=== PATIENT | male | born 1965 | race American Indian/Alaskan Native ===

== ENCOUNTER 2016-08-20 16:19 | Inpatient (IN) | payer MEDICAID ==
[2016-08-20 16:44] VITALS: BMI 21.4
[2016-08-20 17:19] LABS: BASO # 0.1 K/uL (0.0-0.2); BASO % 1.3 % (0.0-2.0); EOS % 0.6 % (0.0-4.0); HEMATOCRIT 38.5 % (35.0-51.0); LYMPH # 1.7 K/uL (1.0-4.3); MEAN CELL VOLUME 86.2 fL (80.0-94.0); MEAN CORPUSCULAR HEMOGLOBIN 27.5 pg (27.0-31.0); MEAN CORPUSCULAR HGB CONC 31.9 g/dL (33.0-37.0); MEAN PLATELET VOLUME 8.4 fL (7.2-11.7); MONO # 0.4 K/uL (0.0-0.8); RED CELL DISTRIBUTION WIDTH 13.4 % (11.5-14.5)
[2016-08-20 17:30] LABS: CHLORIDE 102 mmol/L (98-107); POTASSIUM 3.1 mmol/L (3.6-5.2); SODIUM 141 mmol/L (132-148)
[2016-08-20 17:32] LABS: AST/SGOT 79 U/L (17-59); BILIRUBIN,TOTAL 1.2 mg/dL (0.2-1.3); CARBON DIOXIDE 26 mmol/L (22-30); GFR AFRICAN-AMERICAN > 60
[2016-08-20 17:33] LABS: ALB/GLOB RATIO 1.4 (1.0-2.1); ALCOHOL SERUM 132 mg/dl (0-10); ALKALINE PHOSPHATASE 83 U/L (38-126); ALT/SGPT 59 U/L (21-72); BLOOD UREA NITROGEN 8 mg/dL (9-20); CALCIUM 8.6 mg/dl (8.6-10.4); GLUCOSE,RANDOM 107 mg/dL (75-110); TOTAL PROTEIN 7.5 g/dL (6.3-8.3)
[2016-08-20 17:59] LABS: RBC URINE < 1 /hpf (0-3); URINE BILIRUBIN NEGATIVE (NEGATIVE); URINE BLOOD NEGATIVE (NEGATIVE); URINE COLOR Yellow (YELLOW); URINE GLUCOSE (UA) NORMAL (Normal); URINE KETONE NEGATIVE (NEGATIVE); URINE LEUKOCYTE ESTERASE NEG Leu/uL (Negative); URINE PROTEIN NEGATIVE (NEGATIVE); URINE UROBILINOGEN NORMAL mg/dL (0.2-1.0); WBC URINE 1 /hpf (0-5)
--- NOTE | 2016-08-20 18:58 | C.PDOC ---
History Of Present Illness 51 y/o male presents to the ED for alcohol detox. Patient admits his last drink was a few hours WELDER SHIELDED METAL ARC. Patient has already been prescreened. He denies suicidal/ homicidal ideation or any other drug use at this time. Time Seen by Provider: 08/20/16 16:51 Chief Complaint (Nursing): Substance Abuse History Per: Patient History/Exam Limitations: intoxication Onset/Duration Of Symptoms: Hrs Current Symptoms Are (Timing): Still Present Suicide/Self Injury Attempted (Context): None Modifying Factor(s): Alcohol Associated Symptoms: denies: Suicidal Thoughts, Suicidal Plan Involuntary Hold By: None Recent travel outside of the [place]: No Additional History Per: Patient Past Medical History Reviewed: Historical Data, Nursing Documentation, Vital Signs Vital Signs: Last Vital Signs Temp 98.6 F 08/20/16 16:44 Pulse 94 H 08/20/16 16:44 Resp 18 08/20/16 16:44 BP 131/75 08/20/16 16:44 Pulse Ox 97 08/20/16 18:58 - Medical History PMH: Anemia, Anxiety, Arthritis (osteoarthritis), Bipolar Disorder, Depression, Diverticulitis, Gastritis, Post Traumatic Stress Disorder Denies: Diabetes, Hepatitis, HIV, HTN, Personality Disorder, Chronic Kidney Disease, Schizophrenia, Seizures, Sexually Transmitted Disease Surgical History: Cholecystectomy - [facility] Procedures ALCOHOL DETOXIFICATION (04/14/14) Family History: States: Unknown Family Hx - Social History Hx Tobacco Use: Yes Hx Alcohol Use: Yes Hx Substance Use: Yes (thc) - Immunization History Hx Tetanus Toxoid Vaccination: No Hx Influenza Vaccination: Yes Hx Pneumococcal Vaccination: Yes Review Of Systems Except As Marked, All Systems Reviewed And Found Negative. Psych: Positive for: Other (+alcohol detox ). Negative for: Suicidal ideation Physical Exam - Physical Exam Appears: No Acute Distress Skin: Normal Color, Warm, Dry Head: Atraumatic Eye(s): bilateral: Normal Inspection Oral Mucosa: Moist Neck: Supple Chest: Symmetrical, No Deformity, No Tenderness Cardiovascular: Rhythm Regular, No Murmur Respiratory: Normal Breath Sounds, No Rales, No Rhonchi, No Wheezing Gastrointestinal/Abdominal: Soft, No Tenderness, No Guarding, No Rebound Back: Normal Inspection, No Vertebral Tenderness, No Paraspinal Tenderness Extremity: Normal ROM, Capillary Refill (less than 2 seconds ) Neurological/Psych: Oriented x3, Normal Speech, Normal Cognition Gait: Steady ED Course And Treatment - Laboratory Results Result Diagrams: 08/20/16 17:14 08/20/16 17:14 O2 Sat by Pulse Oximetry: 97 (on RA) Pulse Ox Interpretation: Normal Progress Note: labs ordered and reviewed. Pt has been medically cleared for detox. Accepted by . 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 - Scribe Statement The provider has reviewed the documentation as recorded by the Scribe (Norah Lee) All medical record entries made by the Scribe were at my direction and personally dictated by me. I have reviewed the chart and agree that the record accurately reflects my personal performance of the history, physical exam, medical decision making, and the department course for this patient. I have also personally directed, reviewed, and agree with the discharge instructions and disposition. Decision To Admit - Pt Status Changed To: Hospital Disposition Of: Inpatient - Admit Certification Admit to Inpatient:: After my assessment, the patient will require hospitalization for at least two midnights. This is because of the severity of symptoms shown, intensity of services needed, and/or the medical risk in this patient being treated as an outpatient. - InPatient: Physician Admission Certification: I certify that this patient requires 2 or more midnights of care for the following reason:: Needs more than 2 days for detox - . Bed Request Type: Detox Admitting Physician: Nain Dupree Patient Diagnosis: Drug dependence
[2016-08-20] MEDS ORDERED: Potassium Chloride 20 mEq ER Tab PO STA (19:22)
[2016-08-20] MEDS ORDERED: Potassium Chloride 20 mEq ER Tab PO ONE (19:37)
[2016-08-21 08:36] LABS: CHLORIDE 100 mmol/L (98-107); SODIUM 140 mmol/L (132-148)
[2016-08-21 08:37] LABS: POTASSIUM 3.3 mmol/L (3.6-5.2)
[2016-08-21 08:39] LABS: GFR AFRICAN-AMERICAN > 60
[2016-08-21 08:40] LABS: BLOOD UREA NITROGEN 6 mg/dL (9-20); CARBON DIOXIDE 30 mmol/L (22-30); GLUCOSE,RANDOM 149 mg/dL (75-110)
[2016-08-21] MEDS: Multiple Vitamins Tab PO SCH (09:32)
[2016-08-21] MEDS: Pantoprazole 40 mg EC Tab PO SCH (10:26)
[2016-08-21] MEDS: Hemorrohoidal Ointment (2 oz) TOP SCH ×2 (10:50→22:15)
[2016-08-21] MEDS: Calcium-Vit D 250 mg-125 Units Tab UD PO SCH (10:50)
[2016-08-21] MEDS: Potassium Chloride 20 mEq ER Tab PO SCH (10:51)
--- NOTE | 2016-08-21 11:11 | PCM.PSYCH ---
Initial Psychiatric Evaluation - Initial Psychiatric Evaluation Type of Admission: Voluntary Legal Status: Capacity Chief Complaint (in patient's own words): "Alcohol" History of Present Illness and Precipitating Events: The patient is seen, chart reviewed and case discussed. This is a 51-year-old -Maldivian male, single with no child, lives alone in the room in [place]. He says he lost his mom recently whom he used to live with. He is on welfare and applying for Social Security disability. The patient admits to drinking more than a pint of alcohol every day, sometimes 2 pints. His first use was when he was 12 years old and in his life longest sobriety was about one year. He had more than 10 detoxes and four rehabs. Smokes cigarettes and also marijuana daily. He doesn't want patch. He denies all other drug use. He has some withdrawal symptoms from alcohol. Past psych history: He currently denies depression or anxiety but he is in treatment at [facility] for depression for about 10 years. He says he was hospitalized one time in 2007 after a "meltdown" No suicide attempts Family psych history: All 3 of his sisters had alcohol or drug use. Dependence also used alcohol, painkillers and "everything." Medical history: Osteoarthritis, diverticulitis, gastritis. Current Medications: Active Medications Generic Name Dose Route Start Last Admin Trade Name Denverq PRN Reason Stop Dose Admin Calcium/Vitamin D 1 tab 08/21/16 11:00 08/21/16 10:50 Oscal-D 250 Mg-125 Units Tab PO 1 tab DAILY MARI Administration Chlordiazepoxide 25 mg 08/21/16 00:00 08/21/16 06:27 Librium PO 08/24/16 23:59 25 mg Q6 MARI Administration Taper Chlordiazepoxide 25 mg 08/20/16 19:37 08/20/16 22:18 Librium PO 25 mg Q4H PRN Administration Alcohol Withdrawal Clonidine HCl 0.1 mg 08/21/16 06:02 08/21/16 06:27 Catapres PO 0.1 mg Q8H PRN Administration HTN Folic Acid 1 mg 08/21/16 10:00 08/21/16 09:32 Folic Acid PO 1 mg DAILY MARI Administration Gabapentin 300 mg 08/21/16 10:00 08/21/16 10:26 Neurontin PO 300 mg BID MARI Administration Multi-Ingredient Ointment 0 ea 08/21/16 10:00 08/21/16 10:50 Prep-Hem TOP 1 applic BID MARI Administration Multivitamins 1 tab 08/21/16 10:00 08/21/16 09:32 Hexavitamin PO 1 tab DAILY MARI Administration Pantoprazole Sodium 40 mg 08/21/16 10:00 08/21/16 10:26 Protonix Ec Tab PO 40 mg DAILY MARI Administration Potassium Chloride 40 meq 08/21/16 10:15 08/21/16 10:51 K-Dur 20 Meq Er Tab PO 40 meq DAILY MARI Administration Thiamine HCl 100 mg 08/21/16 10:00 08/21/16 09:32 Vitamin B1 Tab PO 100 mg DAILY MARI Administration Trazodone HCl 100 mg 08/20/16 22:00 08/20/16 22:19 Desyrel PO 100 mg HS MARI Administration Past Psychiatric History - Past Psychiatric History Previous Treatment History: Intensive Outpatient Pertinent Medical Hx (Current Medical&Sleep Prob, Allergies): Allergies Allergy/AdvReac Type Severity Reaction Status Date / Time No Known Allergies Allergy Verified 08/20/16 16:41 Gabapentin [Neurontin] 600 mg PO BID 07/02/15 traZODone [Desyrel] 100 mg PO DAILY 07/02/15 traZODone [Desyrel] 100 mg PO HS PRN #30 tab 07/27/15 LORazepam [Ativan] 1 mg PO DAILY 08/20/16 Omeprazole 40 mg PO DAILY 08/20/16 Review of Systems - Neurological Neurological: UNREMARKABLE - Psychiatric Psychiatric: Abnormal Sleep Pattern, Anxiety. absent: Hallucinations, Homicidal Ideation, Paranoia, Suicidal Ideation Mental Status Examination - Personal Presentation Personal Presentation: Looks older than stated age - Affect Affect: Broad - Motor Activity Motor Activity: Calm - Reliability in Providing Information Reliability in Providing Information: Fair - Speech Speech: Organized - Mood Mood: Anxious - Formal Thought Process Formal Thought Process: No Impairment - Cognitive Functions Orientation: Person, Place, Situation, Time Sensorium: Alert Attention/Concentration: Attentive Estimate of Intelligence: Average Judgement: Intact, as evidence by: Insight regarding need for hospitalization Memory: Recent intact, as evidence by: Ability to recall events of the day, Remote intact, as evidenced by: Abilit to recall sig. life events - Risk Risk: Withdrawal, Diminished functioning - Strength & Assets Inventory Strength & Assets Inventory: Cooperative - Limitations Limitations: Living alone DSM 5 DX - DSM 5 DSM 5 Diagnosis: Alcohol withdrawal Alcohol use d/o -severe Cannabis use d/o - severe Tobacco use d/o - severe Depressive d/o - unspecified - Recommended/Plan of Treatment Treatment Recommendations and Plan of Treatment: Alcohol: Librium detox gabapentin Support and psychoed NE and CBt Groups and activities Tobacco/Cannabis: NE used, continue daily CBt gabapentin for cannabis 33 min Projected ELOS: 5 days Prognosis: good with treatment - Smoking Cessation Smoking Cessation Initiated: Yes
[2016-08-21 14:33] VITALS: RESP 18
[2016-08-22] MEDS: Multiple Vitamins Tab PO SCH (10:06)
[2016-08-22] MEDS: Hemorrohoidal Ointment (2 oz) TOP SCH ×2 (10:07→18:05)
[2016-08-22] MEDS: Potassium Chloride 20 mEq ER Tab PO SCH (10:07)
[2016-08-22] MEDS: Pantoprazole 40 mg EC Tab PO SCH (10:07)
[2016-08-22] MEDS: Calcium-Vit D 250 mg-125 Units Tab UD PO SCH (10:08)
--- NOTE | 2016-08-22 12:05 | PCM.PYCHPN ---
Psychiatric Progress Note - Psychiatric Progress Note Patient seen today, length of contact: 16 min Patient Chief Complaint: "OK" Problems Identified/Issues Discussed: The pt is seen, chart reviewed, case discussed with staff. The pt is compliant with medications and reports no side-effects. Symptoms are improving but needs more time to stabilize. After care discussed, support and psychoeducation given. Medication Change: Yes (detox changes daily) Medical Record Reviewed: Yes Mental Status Examination - Cognitive Function Orientation: Person, Place, Situation, Time Memory: Intact Attention: WNL Concentration: WNL Association: WNL Fund of Knowledge: WNL - Mood Mood: Anxious - Affect Affect: Broad - Speech Speech: Appropriate - Formal Thought Process Formal Thought Process: No Impairment - Suicidal Ideation Suicidal Ideation: No - Homicidal Ideation Homicidal Ideation: No Goal/Treatment Plan - Goal/Treatment Plan Need for Continued Stay: Discharge may exacerbated symptoms, Severe functional impairment Progress Toward Problem(s) and Goals/Treatment Plan: Alcohol: Librium detox gabapentin Support and psychoed [place] and CBt Groups and activities Tobacco/Cannabis: IL used, continue daily CBt gabapentin for cannabis
[2016-08-22 14:20] LABS: CHLORIDE 98 mmol/L (98-107); SODIUM 140 mmol/L (132-148)
[2016-08-22 14:23] LABS: ALB/GLOB RATIO 1.8 (1.0-2.1); ALKALINE PHOSPHATASE 77 U/L (38-126); ALT/SGPT 45 U/L (21-72); AST/SGOT 41 U/L (17-59); BILIRUBIN,TOTAL 0.5 mg/dL (0.2-1.3); BLOOD UREA NITROGEN 7 mg/dL (9-20); CARBON DIOXIDE 30 mmol/L (22-30); GFR AFRICAN-AMERICAN > 60; GLUCOSE,RANDOM 99 mg/dL (75-110); TOTAL PROTEIN 7.2 g/dL (6.3-8.3)
[2016-08-22 14:24] LABS: CALCIUM 8.7 mg/dl (8.6-10.4)
[2016-08-23] MEDS: Calcium-Vit D 250 mg-125 Units Tab UD PO SCH (09:47)
[2016-08-23] MEDS: Multiple Vitamins Tab PO SCH (09:47)
[2016-08-23] MEDS: Pantoprazole 40 mg EC Tab PO SCH (09:47)
[2016-08-23] MEDS: Hemorrohoidal Ointment (2 oz) TOP SCH ×2 (09:47→19:04)
--- NOTE | 2016-08-23 13:15 | PCM.PYCHPN ---
Psychiatric Progress Note - Psychiatric Progress Note Patient seen today, length of contact: 17 min Patient Chief Complaint: "I want to leave tomorrow" Problems Identified/Issues Discussed: The pt is seen, chart reviewed and case discussed. The pt is improving with medications and no breakthrough sxs reported or noted. No SEs from meds Support and psychoed given MD and CBt used After care discussed Medication Change: Yes (detox changes daily) Medical Record Reviewed: Yes Mental Status Examination - Cognitive Function Orientation: Person, Place, Situation, Time Memory: Intact Attention: WNL Concentration: WNL Association: WNL Fund of Knowledge: WNL - Mood Mood: Anxious - Affect Affect: Broad - Speech Speech: Appropriate - Formal Thought Process Formal Thought Process: No Impairment - Suicidal Ideation Suicidal Ideation: No - Homicidal Ideation Homicidal Ideation: No Goal/Treatment Plan - Goal/Treatment Plan Need for Continued Stay: Discharge may exacerbated symptoms, Severe functional impairment Progress Toward Problem(s) and Goals/Treatment Plan: Alcohol: Librium detox gabapentin Support and psychoed MD and CBt Groups and activities Tobacco/Cannabis: MD used, continue daily CBt gabapentin for cannabis Estimated Date of D/C: 08/24/16
[2016-08-23 19:15] VITALS: PULSE 83; O2SAT 99
--- NOTE | 2016-08-24 08:19 | PCM.PYCHDC ---
Mental Status Examination - Mental Status Examination Orientation: Person, Place, Situation, Time Memory: Intact Mood: Neutral Affect: Constricted Speech: Soft Attention: WNL Concentration: WNL Association: WNL Fund of Knowledge: WNL Formal Thought Process: No Impairment Description of patient's judgement and insight: good, fair Psychotic Thoughts and Behaviors: denies any AVH Suicidal Ideation: No Current Homicidal Ideation?: No Discharge Summary - Discharge Note Reason for Hospitalization: The patient is seen, chart reviewed and case discussed. This is a 51-year-old -Serbian male, single with no child, lives alone in the room in [place]. He says he lost his mom recently whom he used to live with. He is on welfare and applying for Social Security disability. The patient admits to drinking more than a pint of alcohol every day, sometimes 2 pints. His first use was when he was 12 years old and in his life longest sobriety was about one year. He had more than 10 detoxes and four rehabs. Smokes cigarettes and also marijuana daily. He doesn't want patch. He denies all other drug use. He has some withdrawal symptoms from alcohol. Past psych history: He currently denies depression or anxiety but he is in treatment at [facility] for depression for about 10 years. He says he was hospitalized one time in 2007 after a "meltdown" No suicide attempts Consultations:: List each consultation separately and include: 1. Reason for request. 2. Findings. 3. Follow-up Summary of Hospital Course include:: 1. Description of specific treatment plan utilized for patients during their course of treatmen. 2. Summarize the time- course for resolution of acute symptoms and/or regressed behaviors. 3. Describe issues identified and worked on during hospitalization. 4. Describe medication utilized. 5. Describe medical problems identified and treated. 6. Reassessment of suicide risk Summary of Hospital Course: During the course of his stay, patient (pt) started progressively improving and he no longer remained anxious and irritable. He tolerated the withdrawal protocol very well. He didnt have any shakes, sweating, tremors or cramps or any other withdrawal symptoms upon discharge. He started attending groups and meetings and started socializing. He denied any feelings of hopelessness, helplessness, and worthlessness, denied any problem with the sleep or appetite, denied suicidal ideation or homicidal ideation. Pt denied any auditory or visual hallucinations. Patient remained calm and cooperative and remained compliant with the medications. Patient tolerated the detox medications very well and denied any side effects. - Final Diagnosis (DSM 5) Condition upon Discharge: STABLE DSM 5: Alcohol withdrawal Alcohol use d/o -severe Cannabis use d/o - severe Tobacco use d/o - severe Depressive d/o - unspecified Disposition: HOME/ ROUTINE Follow-up Treatment Plan: Education: Pt was educated and counseled about the risks and benefits of taking and not taking medications. Pt was educated and counseled about the risks of drinking and abusing drugs. Pt was educated and counseled to go to the ER or call 911 if pt develop suicidal ideation or homicidal ideation, worsening of symptoms or severe side effects of the meds. Prescriptions/Medication Reconciliation: Calcium Carbonate/Vitamin D [Oscal-D 250 mg-125 Units Tab] 1 tab PO DAILY #30 tab Gabapentin [Neurontin] 300 mg PO BID #60 cap traZODone [Desyrel] 100 mg PO HS #30 tab - Smoking Cessation Smoking Cessation Medication prescribed: No - Antipsychotic Medications Pt discharged on 2 or more routine antipsychotic medications: No
[2016-08-24 09:13] VITALS: BP 149/83; TEMP 97.8
[2016-08-24] MEDS: Calcium-Vit D 250 mg-125 Units Tab UD PO SCH (09:13)
[2016-08-24] MEDS: Multiple Vitamins Tab PO SCH (09:13)
[2016-08-24] MEDS: Pantoprazole 40 mg EC Tab PO SCH (09:13)
[2016-08-24] MEDS: Hemorrohoidal Ointment (2 oz) TOP SCH (09:14)
== END 2016-08-24 09:40 | disposition home or self-care (01) | DRG 751 ==
LOC: C.ER 16:19 → C.7D 19:23
PROC: HZ2ZZZZ Detoxification Services for Substance Abuse Treatment (ICD-10-PCS; principal; 2016-08-20)
PROC: HZ46ZZZ Group Counseling for Substance Abuse Treatment, Psychoeducation (ICD-10-PCS; 2016-08-20)
PROC: HZ59ZZZ Individual Psychotherapy for Substance Abuse Treatment, Supportive (ICD-10-PCS; 2016-08-20)
PROC: GZ3ZZZZ Medication Management (ICD-10-PCS; 2016-08-20)
DX: F10.230 Alcohol dependence with withdrawal, uncomplicated (principal); F14.10 Cocaine abuse, uncomplicated; F12.10 Cannabis abuse, uncomplicated; F31.9 Bipolar disorder, unspecified; F17.210 Nicotine dependence, cigarettes, uncomplicated; F43.10 Post-traumatic stress disorder, unspecified

== ENCOUNTER 2016-09-04 16:39 | Observation (INO) | payer MEDICAID ==
[2016-09-04 16:40] VITALS: BMI 21.4
--- NOTE | 2016-09-04 17:27 | C.PDOC ---
History Of Present Illness 51 yr old male brought in via BLS, presents to the ER intoxicated and stating feeling depressed. 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 States his mother and he is having difficulty staying sober. Denies chest pain, SOB, nausea, vomiting, weakness or numbness. Time Seen by Provider: 09/04/16 17:06 Chief Complaint (Nursing): Substance Abuse History Per: Patient History/Exam Limitations: no limitations Onset/Duration Of Symptoms: Persistent Current Symptoms Are (Timing): Still Present Modifying Factor(s): Alcohol Past Medical History Reviewed: Historical Data, Nursing Documentation, Vital Signs Vital Signs: Last Vital Signs Temp 97.7 F 09/04/16 19:29 Pulse 80 09/04/16 19:29 Resp 18 09/04/16 19:29 BP 136/80 09/04/16 19:29 Pulse Ox 96 09/04/16 20:29 - Medical History PMH: Anemia, Anxiety, Arthritis, Bipolar Disorder, Depression, Diverticulitis, Gastritis, Post Traumatic Stress Disorder Surgical History: Cholecystectomy - [facility] Procedures ALCOHOL DETOXIFICATION (04/14/14) DETOXIFICATION SERVICES FOR SUBSTANCE ABUSE TREATMENT (08/20/16) 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 Cardiovascular: Negative for: Chest Pain Respiratory: Negative for: Shortness of Breath Gastrointestinal: Negative for: Nausea, Vomiting Neurological: Negative for: Weakness, Numbness Psych: Positive for: Depression, Other ((+) Intoxication ) Physical Exam - Physical Exam Appears: Non-toxic, No Acute Distress Skin: Warm, Dry, No Rash Head: Atraumatic, Normacephalic Oral Mucosa: Moist Chest: Symmetrical, No Tenderness Cardiovascular: Rhythm Regular, No Friction Rub Respiratory: Normal Breath Sounds, No Rales, No Rhonchi, No Wheezing Extremity: Normal ROM, No Swelling Neurological/Psych: Oriented x3, Normal Speech, Normal Motor ED Course And Treatment O2 Sat by Pulse Oximetry: 96 ED OBSERVATION Discharge: Yes Date of observation admission: 09/04/16 Time of observation admission: 17:25 - Observation admission statement Patient is being placed in observation because:: alcohol intoxication - Goals of Observation Goals of observation are:: sobriety - Progress Note Progress Note: 09/04/16 20:28 Patient resting quietly. Easily arousable. No evidence of withdrawal. 09/04/16 21:32 Patient now awake and alert. He has tolerated a sandwich and is requesting discharge stating that he has a 10:00pm curfew at the [facility]. Disposition - Disposition Disposition: HOME/ ROUTINE Disposition Time: 21:32 Condition: IMPROVED - Clinical Impression Clinical Impression: Alcohol abuse - Scribe Statement The provider has reviewed the documentation as recorded by the Harpreetibtrevin Chapman Provider Attestation: All medical record entries made by the Harpreetibtrevin were at my direction and personally dictated by me. I have reviewed the chart and agree that the record accurately reflects my personal performance of the history, physical exam, medical decision making, and the department course for this patient. I have also personally directed, reviewed, and agree with the discharge instructions and disposition.
[2016-09-04 21:42] VITALS: BP 161/89; PULSE 92; RESP 20; TEMP 98.2; O2SAT 97
== END 2016-09-04 21:33 | disposition home or self-care (01) ==
LOC: C.ER 16:39 → C.9OBSV 17:27
PROVIDERS: ADMIT Emergency Medicine; ATTEND Emergency Medicine
DX: F10.120 Alcohol abuse with intoxication, uncomplicated (principal); Y90.9 Presence of alcohol in blood, level not specified

== ENCOUNTER 2016-09-05 07:04 | Inpatient (IN) | payer MEDICAID ==
[2016-09-05 07:05] VITALS: BMI 21.4
[2016-09-05 08:13] LABS: BASO % 0.3 % (0.0-2.0); EOS # 0.1 K/uL (0.0-0.7); EOS % 1.6 % (0.0-4.0); HEMATOCRIT 37.4 % (35.0-51.0); LYMPH # 1.7 K/uL (1.0-4.3); LYMPH % 31.1 % (20.0-40.0); MEAN CELL VOLUME 84.4 fL (80.0-94.0); MEAN CORPUSCULAR HEMOGLOBIN 27.2 pg (27.0-31.0); MEAN CORPUSCULAR HGB CONC 32.3 g/dL (33.0-37.0); MEAN PLATELET VOLUME 8.1 fL (7.2-11.7); MONO # 0.3 K/uL (0.0-0.8); MONO % 5.5 % (0.0-10.0); NRBC % 0.1 % (0.0-2.0); RED CELL DISTRIBUTION WIDTH 13.1 % (11.5-14.5); WHITE BLOOD COUNT 5.5 K/uL (4.8-10.8)
[2016-09-05 08:14] LABS: RBC URINE 1 /hpf (0-3); URINE BILIRUBIN NEGATIVE (NEGATIVE); URINE BLOOD NEGATIVE (NEGATIVE); URINE COLOR Yellow (YELLOW); URINE GLUCOSE (UA) NORMAL (Normal); URINE KETONE TRACE mg/dL (NEGATIVE); URINE LEUKOCYTE ESTERASE NEG Leu/uL (Negative); URINE PROTEIN 1+ mg/dL (NEGATIVE); WBC URINE 3 /hpf (0-5)
[2016-09-05 08:19] LABS: CHLORIDE 102 mmol/L (98-107); POTASSIUM 3.1 mmol/L (3.6-5.2); SODIUM 140 mmol/L (132-148)
[2016-09-05 08:21] LABS: ALB/GLOB RATIO 1.3 (1.0-2.1); AST/SGOT 67 U/L (17-59); BILIRUBIN,TOTAL 2.4 mg/dL (0.2-1.3); CARBON DIOXIDE 23 mmol/L (22-30); GFR AFRICAN-AMERICAN > 60; TOTAL PROTEIN 6.9 g/dL (6.3-8.3)
[2016-09-05 08:22] LABS: ALCOHOL SERUM 64 mg/dl (0-10); ALKALINE PHOSPHATASE 74 U/L (38-126); ALT/SGPT 52 U/L (21-72); BLOOD UREA NITROGEN 9 mg/dL (9-20); CALCIUM 7.3 mg/dl (8.6-10.4); GLUCOSE,RANDOM 96 mg/dL (75-110)
--- NOTE | 2016-09-05 08:31 | C.PDOC ---
History Of Present Illness Patient is a 51-year-old male, PMHx includes Cholecystectomy, Diverticulitis, Osteoarthritis, Hypertension, Bipolar Disorder, Anxiety, EtOH Abuse, PTSD and Depression, presents to the emergency department with complaints of increasing depression over the past several days, and suicidal ideation with plan to overdose. Patient reports that his mother recently . Denies nausea/ vomiting, chest pain, shortness of breath, headache, fevers, shortness of breath , or any other associated symptoms. No other complaints at this time. Time Seen by Provider: 09/05/16 07:46 Chief Complaint (Nursing): Psychiatric Evaluation History Per: Patient History/Exam Limitations: no limitations Onset/Duration Of Symptoms: Days Current Symptoms Are (Timing): Still Present Modifying Factor(s): Alcohol, Marijuana Severity: Moderate Associated Symptoms: Suicidal Thoughts Past Medical History Reviewed: Historical Data, Nursing Documentation, Vital Signs Vital Signs: Last Vital Signs Temp 98.4 F 09/05/16 13:27 Pulse 103 H 09/05/16 13:27 Resp 19 09/05/16 13:27 BP 162/96 H 09/05/16 13:27 Pulse Ox 99 09/05/16 11:42 - Medical History PMH: Anemia, Anxiety, Arthritis, Bipolar Disorder, Depression, Diverticulitis, Gastritis, Post Traumatic Stress Disorder Surgical History: Cholecystectomy - [facility] Procedures ALCOHOL DETOXIFICATION (04/14/14) DETOXIFICATION SERVICES FOR SUBSTANCE ABUSE TREATMENT (08/20/16) 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 Cardiovascular: Negative for: Chest Pain Respiratory: Negative for: Shortness of Breath Gastrointestinal: Negative for: Nausea, Vomiting Psych: Positive for: Depression, Suicidal ideation Physical Exam - Physical Exam Appears: Non-toxic, No Acute Distress, Other (EtOH on breath) Skin: Warm, Dry, No Rash Head: Atraumatic, Normacephalic Eye(s): bilateral: Normal Inspection, PERRL Ear(s): Bilateral: Normal Nose: Normal Oral Mucosa: Moist Tongue: Normal Appearing Lips: Normal Appearing Neck: Normal ROM Lymphatic: Deferred Cardiovascular: Rhythm Regular, No Murmur Respiratory: Normal Breath Sounds, No Accessory Muscle Use Gastrointestinal/Abdominal: Soft, No Tenderness Rectal: Deferred Back: Normal Inspection Extremity: Normal ROM Neurological/Psych: Oriented x3, Normal Speech, Other (No focal deficit.) ED Course And Treatment - Laboratory Results Result Diagrams: 09/05/16 08:06 09/05/16 08:06 O2 Sat by Pulse Oximetry: 96 Medical Decision Making Medical Decision Making: Impression: Depression with suicidal ideation. Plan: Will medically clear and admit to psychiatric unit. Prior Visits Notes and records from previous visits were reviewed. Patient seen in ED yesterday for SI and was requesting detox. After four hours of observation, patient ate a sandwich and requested to be discharged due [facility]few [facility]. Plan: * EtOH Serum, CMP, UDS, Salicylate, Acetominophen * CBC * Crisis Evaluation * 1:1 Observation * Urinalysis * Reassess and Disposition Progress: 11:00 AM - Pt is medically stable at this time to be admitted to psychiatry. Pt accepted to psych by Dr. Vuong. Disposition - Disposition Disposition: HOSPITALIZED Disposition Time: 10:56 Condition: FAIR - POA Present On Arrival: None - Clinical Impression Clinical Impression: Alcohol use disorder, severe, dependence, Major depression, Hypokalemia - Scribe Statement The provider has reviewed the documentation as recorded by the Scribe (Angelo Kendall) All medical record entries made by the Scribe were at my direction and personally dictated by me. I have reviewed the chart and agree that the record accurately reflects my personal performance of the history, physical exam, medical decision making, and the department course for this patient. I have also personally directed, reviewed, and agree with the discharge instructions and disposition. Decision To Admit - Pt Status Changed To: Hospital Disposition Of: Inpatient - Admit Certification Admit to Inpatient:: After my assessment, the patient will require hospitalization for at least two midnights. This is because of the severity of symptoms shown, intensity of services needed, and/or the medical risk in this patient being treated as an outpatient. - InPatient: Physician Admission Certification: I certify that this patient requires 2 or more midnights of care for the following reason:: Patient is suicidal - . Bed Request Type: Psychiatry Admitting Physician: Elidia Vuong Patient Diagnosis: Alcohol use disorder, severe, dependence, Major depression, Hypokalemia
--- NOTE | 2016-09-05 09:59 | RAD ---
PROCEDURE: CHEST RADIOGRAPH, 1 VIEW HISTORY: Medical clearance for Psych COMPARISON: None available. FINDINGS: LUNGS: Mild venous congestion. PLEURA: No pneumothorax or pleural fluid seen. CARDIOVASCULAR: Normal. OSSEOUS STRUCTURES: No significant abnormalities. VISUALIZED UPPER ABDOMEN: Normal. OTHER FINDINGS: None. IMPRESSION: Mild venous congestion.
[2016-09-05] MEDS ORDERED: Potassium Chloride 20 mEq/15 ml LIQ UD PO STA (10:55)
[2016-09-05] MEDS ORDERED: Potassium Chloride 20 mEq ER Tab PO ONE (11:10)
--- NOTE | 2016-09-05 12:23 | PCM.PSYCH ---
Initial Psychiatric Evaluation - Initial Psychiatric Evaluation Type of Admission: Voluntary Legal Status: Capacity Chief Complaint (in patient's own words): 'I was feeling depressed and suicidal' History of Present Illness and Precipitating Events: Pt is a 51 year old, AA male, who presented to [facility] ED for depression , suicidal ideation, and alcohol dependence. Pt reports that he's had "a rough year." Pt states that h his mother in April. Since then he is drinking increasing amount of liquor. Patient reports drinking a fifth of vodka on a daily basis. Yesterday he consumed almost 4 pints of vodka, became increasingly depressed and developed Suicidal ideation with a plan to overdose on medications, so he came to the hospital to get help. Pt admits to noncompliance with psychiatric medication. Pt states that he's been having suicidal thoughts for the past two weeks, but yesterday he had a plan of overdosing on medication. He reports depressed mood, feelings of hopelessness and helplessness, poor sleep and poor appetite. He denies any auditory or visual hallucinations and denies any manic or psychotic symptoms. He reports withdrawal symptoms including anxiety, headaches, shakes and sweating but denies any seizures. However he reports of having an episode of seizures in the past. He denies any other substance abuse. Past medical history History of diverticulitis, HTN Current Medications: Active Medications Generic Name Dose Route Start Last Admin Trade Name Freq PRN Reason Stop Dose Admin Chlordiazepoxide 25 mg 09/05/16 12:17 Librium PO Q4H PRN Alcohol Withdrawal Chlordiazepoxide 0 mg 09/05/16 12:19 Librium PO 09/11/16 12:18 Q6 MARI Taper Clonidine HCl 0.1 mg 09/05/16 12:17 Catapres PO Q4H PRN Symptoms of alcohol withdrawl Folic Acid 1 mg 09/05/16 12:30 Folic Acid PO DAILY MARI Multivitamins 1 tab 09/05/16 12:30 Hexavitamin PO DAILY MARI Thiamine HCl 100 mg 09/05/16 12:30 Vitamin B1 Tab PO DAILY MARI Past Psychiatric History - Past Psychiatric History Previous Treatment History: Inpatient Pertinent Medical Hx (Current Medical&Sleep Prob, Allergies): Allergies Allergy/AdvReac Type Severity Reaction Status Date / Time No Known Allergies Allergy Verified 09/05/16 07:08 LORazepam [Ativan] 1 mg PO DAILY PRN 08/20/16 traZODone [Desyrel] 100 mg PO HS #30 tab 08/23/16 Gabapentin [Neurontin] 300 mg PO TID 09/04/16 Review of Systems - Review of Systems All systems: reviewed and no additional remarkable complaints except - Psychiatric Psychiatric: Anxiety, Depression, Irritability, Paranoia, Suicidal Ideation Mental Status Examination - Personal Presentation Personal Presentation: Looks stated age - Affect Affect: Constricted, Depressed - Motor Activity Motor Activity: Calm - Reliability in Providing Information Reliability in Providing Information: Good - Speech Speech: Organized - Mood Mood: Depressed, Anxious - Formal Thought Process Formal Thought Process: Paranoia - Hallucinations/Delusions Delusions: Persecution - Obsessions/Compulsions Obsessions: No Compulsions: No - Cognitive Functions Orientation: Person, Place, Situation, Time Sensorium: Alert Attention/Concentration: Attentive Abstract Thinking: [place] Estimate of Intelligence: Below average Judgement: Imparied, as evidence by: Poor judgement, Imparied, as evidence by: Lack of insight into illness - Risk Risk: Suicidal, Withdrawal, Diminished functioning - Strength & Assets Inventory Strength & Assets Inventory: Cooperative - Limitations Limitations: Living alone DSM 5 DX - DSM 5 DSM 5 Diagnosis: Major depressive disorder recurrent severe with psychotic features Alcohol use disorder severe Alcohol withdrawal uncomplicated - Recommended/Plan of Treatment Treatment Recommendations and Plan of Treatment: Major depressive disorder recurrent severe with psychotic features CBT Psychoeducation Supportive therapy, group therapy, individual therapy Paxil 10 mg by mouth daily Neurontin 300 mg by mouth 3 times a day Trazodone 100 mg by mouth daily at bedtime Alcohol use disorder severe CBT Psychoeducation Supportive therapy, individual therapy Use GA for abstinence Alcohol withdrawal uncomplicated CBT Psychoeducation Supportive therapy, individual therapy Librium when necessary Start Librium taper Start folic acid/thiamine/multivitamin Diverticulitis monitor signs and symptoms HTN monitor signs and symptoms - Smoking Cessation Smoking Cessation Initiated: No
[2016-09-05] MEDS: Multiple Vitamins Tab PO SCH (12:48)
[2016-09-05] MEDS: Pantoprazole 40 mg EC Tab PO SCH (17:46)
[2016-09-06] MEDS: Pantoprazole 40 mg EC Tab PO SCH (09:53)
[2016-09-06] MEDS: Multiple Vitamins Tab PO SCH (09:53)
[2016-09-06] MEDS: Calcium-Vit D 250 mg-125 Units Tab UD PO SCH (10:52)
[2016-09-06 12:17] LABS: CHLORIDE 100 mmol/L (98-107); SODIUM 140 mmol/L (132-148)
[2016-09-06 12:18] LABS: POTASSIUM 3.7 mmol/L (3.6-5.2)
[2016-09-06 12:19] LABS: CARBON DIOXIDE 29 mmol/L (22-30); CHOLESTEROL 152 mg/dL (0-199); GFR AFRICAN-AMERICAN > 60
[2016-09-06 12:20] LABS: ALB/GLOB RATIO 1.2 (1.0-2.1); ALKALINE PHOSPHATASE 76 U/L (38-126); ALT/SGPT 40 U/L (21-72); AST/SGOT 58 U/L (17-59); BILIRUBIN,TOTAL 1.1 mg/dL (0.2-1.3); BLOOD UREA NITROGEN 6 mg/dL (9-20); CALCIUM 9.2 mg/dl (8.6-10.4); GLUCOSE,RANDOM 94 mg/dL (75-110); MAGNESIUM 1.6 mg/dL (1.6-2.3); TOTAL PROTEIN 7.6 g/dL (6.3-8.3)
--- NOTE | 2016-09-06 18:49 | PCM.PYCHPN ---
Psychiatric Progress Note - Psychiatric Progress Note Patient seen today, length of contact: 18 min Patient Chief Complaint: "I am very anxious" Problems Identified/Issues Discussed: The pt is seen alone and with the team, chart reviewed, case discussed with staff. He is known to the justowriter operator. Support given, CBT and MO used briefly No new symptoms reported, but needs some more time as he is still anxious and depressed He is also too talkative and made himself believe that he will go to a rehab - which he has never been into. Now that he became homeless due to mos passing, he may. He made an appt with [facility] on Friday but justowriter operator advised that he can get [facility] funding via addiction hotline too. No SEs from medications, risks discussed. After care discussed - wants rehab Medication Change: Yes Medical Record Reviewed: Yes Mental Status Examination - Cognitive Function Orientation: Person, Place, Situation, Time Memory: Intact Attention: Poor Concentration: Poor Association: Loose Fund of Knowledge: WNL - Mood Mood: Depressed, Anxious - Affect Affect: Constricted, Depressed - Speech Speech: Pressured - Formal Thought Process Formal Thought Process: Paranoia - Suicidal Ideation Suicidal Ideation: No - Homicidal Ideation Homicidal Ideation: No Goal/Treatment Plan - Goal/Treatment Plan Need for Continued Stay: Discharge may exacerbated symptoms, Severe functional impairment Progress Toward Problem(s) and Goals/Treatment Plan: Continue meds After care help Support and psychoed MO and CBT Attend groups and activities Estimated Date of D/C: 09/11/16
[2016-09-07] MEDS: Pantoprazole 40 mg EC Tab PO SCH (09:54)
[2016-09-07] MEDS: Multiple Vitamins Tab PO SCH (09:55)
[2016-09-07] MEDS: Calcium-Vit D 250 mg-125 Units Tab UD PO SCH (09:55)
[2016-09-07] MEDS ORDERED: Hemorrohoidal Ointment (2 oz) TOP PRN (17:28)
[2016-09-08 07:00] VITALS: O2SAT 98
[2016-09-08] MEDS ORDERED: Pneumococcal 23-Valent Vaccine IM ONE (10:00)
[2016-09-08] MEDS: Multiple Vitamins Tab PO SCH (10:58)
[2016-09-08] MEDS: Pantoprazole 40 mg EC Tab PO SCH (11:00)
[2016-09-08] MEDS: Calcium-Vit D 250 mg-125 Units Tab UD PO SCH (12:01)
--- NOTE | 2016-09-09 00:55 | PCM.PYCHPN ---
Psychiatric Progress Note - Psychiatric Progress Note Patient seen today, length of contact: 15 min Patient Chief Complaint: iCAN I H\GET PREPARATION H Problems Identified/Issues Discussed: PAWS SYMPTOM MANAGEMENT TRIGGERS I WANT TO BE ON CELEXA NOT PAXIL Medical Problems: HEMORROIDS Diagnostic Results: REVIEWED DSM 5 Symptoms Update: ANERGY Medication Change: Yes (STOP PAXIL START CELEXA) Medical Record Reviewed: Yes Mental Status Examination - Cognitive Function Orientation: Person, Situation, Time Memory: Intact Attention: Poor Concentration: WNL Association: WNL Fund of Knowledge: WNL - Mood Mood: Depressed, Anxious - Affect Affect: Constricted, Depressed - Speech Speech: Pressured - Formal Thought Process Formal Thought Process: No Impairment - Suicidal Ideation Suicidal Ideation: No - Homicidal Ideation Homicidal Ideation: No Goal/Treatment Plan - Goal/Treatment Plan Need for Continued Stay: Discharge may exacerbated symptoms, Severe functional impairment Progress Toward Problem(s) and Goals/Treatment Plan: MDD WITH PSYCHOSIS CELEXA ALCOHOL WITHDRAWAL CBT MT LIBRIUM TAPER ALCOHOLUSE DISORDER SUPPORT PSYCHOTHERAPY Estimated Date of D/C: 09/11/16 - Smoking Cessation Smoking Cessation Initiated: No
--- NOTE | 2016-09-09 02:21 | PCM.PYCHPN ---
Psychiatric Progress Note - Psychiatric Progress Note Patient seen today, length of contact: 15 min Patient Chief Complaint: iCAN I GET PREPARATION H Problems Identified/Issues Discussed: SYMPTOM MANAGEMENT PAWS Medical Problems: NOTHING ACUTE Diagnostic Results: REVIEWED DSM 5 Symptoms Update: ANXIETY ANHEDONIA Medication Change: No Medical Record Reviewed: Yes Mental Status Examination - Cognitive Function Orientation: Person, Place, Situation, Time Memory: Intact Attention: WNL Concentration: WNL Association: WNL Fund of Knowledge: WNL - Mood Mood: Depressed, Anxious - Affect Affect: Constricted, Depressed - Speech Speech: Appropriate, Pressured - Formal Thought Process Formal Thought Process: No Impairment - Suicidal Ideation Suicidal Ideation: No - Homicidal Ideation Homicidal Ideation: No Goal/Treatment Plan - Goal/Treatment Plan Need for Continued Stay: Remain at risks for inpatient hospitalization, Discharge may exacerbated symptoms, Severe functional impairment Progress Toward Problem(s) and Goals/Treatment Plan: MDD WITH PSYCHOSIS SUPPORTIVE PSYCHOTHERAPY SEROQUEL ALCOHOL WITHDRAWAL CBT AL LIBRIUM TAPER SUPPORTIVE PSYCHOTHERAPY ALCOHOLUSE DISORDER SUPPORT PSYCHOTHERAPY Estimated Date of D/C: 09/11/16 - Smoking Cessation Smoking Cessation Initiated: No
--- NOTE | 2016-09-09 09:37 | PCM.PYCHDC ---
Mental Status Examination - Mental Status Examination Orientation: Person, Place, Situation, Time Memory: Intact Mood: Anxious Affect: Broad Speech: Pressured Attention: WNL Concentration: Poor Association: WNL Fund of Knowledge: WNL Formal Thought Process: No Impairment Suicidal Ideation: No Current Homicidal Ideation?: No Discharge Summary - Discharge Note Reason for Hospitalization: Depression, SI Consultations:: List each consultation separately and include: 1. Reason for request. 2. Findings. 3. Follow-up Summary of Hospital Course include:: 1. Description of specific treatment plan utilized for patients during their course of treatmen. 2. Summarize the time- course for resolution of acute symptoms and/or regressed behaviors. 3. Describe issues identified and worked on during hospitalization. 4. Describe medication utilized. 5. Describe medical problems identified and treated. 6. Reassessment of suicide risk Summary of Hospital Course: The pt was admitted and started on treatment with psychotherapy, support, psychoeducation and medications. MT and CBT used. The pt attended groups and activities, as well as milieu therapy. All the risks and benefits of medications are discussed and the patient understood and agreed. After care discussed with the patient. He was as before evasive and guarded. He was fixated on attending a meeting with [facility] rather than calling [place] Addiction Hotline. He claimed his "counselor" at [facility] recommended this and he wouldn't listen anything otherwise. He plans to go to an inpatient rehab but senior technical writer and staff suspect he does not. He recently found an apartment and likely wouldn't risk it. - Final Diagnosis (DSM 5) Condition upon Discharge: IMPROVED DSM 5: Major depressive disorder recurrent severe with psychotic features Alcohol use disorder severe Alcohol withdrawal uncomplicated Disposition: HOME/ ROUTINE Follow-up Treatment Plan: Continue below medications after discharge. Follow after care plan as discussed. He will start with [facility] appointment with a plan to go to an inpatient rehab Use relapse prevention skills Return to ER or call 911 if suicidal, homicidal or symptoms relapse. Stay away from stress, alcohol and drugs. See primary doctor once a year. Prescriptions/Medication Reconciliation: amLODIPine [Norvasc] 5 mg PO DAILY #30 tab Calcium Carbonate/Vitamin D [Oscal-D 250 mg-125 Units Tab] 1 tab PO DAILY #30 tab Citalopram [celEXA] 20 mg PO DAILY #30 tab Gabapentin [Neurontin] 300 mg PO TID #90 cap Pantoprazole [Protonix EC Tab] 40 mg PO DAILY #30 ect traZODone [Desyrel] 100 mg PO HS #30 tab - Smoking Cessation Smoking Cessation Medication prescribed: No - Antipsychotic Medications Pt discharged on 2 or more routine antipsychotic medications: No
[2016-09-09] MEDS: Multiple Vitamins Tab PO SCH (09:44)
[2016-09-09] MEDS: Pantoprazole 40 mg EC Tab PO SCH (09:44)
[2016-09-09] MEDS: Calcium-Vit D 250 mg-125 Units Tab UD PO SCH (09:45)
[2016-09-09 10:16] VITALS: BP 142/87; PULSE 75; RESP 18; TEMP 97.7
== END 2016-09-09 10:52 | disposition home or self-care (01) | DRG 750 ==
LOC: C.ER 07:04 → C.9E 10:56 → C.5E 11:44
PROVIDERS: ADMIT Psychiatry & Neurology Psychiatry; ATTEND Psychiatry & Neurology Psychiatry
PROC: HZ2ZZZZ Detoxification Services for Substance Abuse Treatment (ICD-10-PCS; principal; 2016-09-05)
PROC: GZHZZZZ Group Psychotherapy (ICD-10-PCS; 2016-09-05)
PROC: HZ52ZZZ Individual Psychotherapy for Substance Abuse Treatment, Cognitive-Behavioral (ICD-10-PCS; 2016-09-05)
PROC: GZ58ZZZ Individual Psychotherapy, Cognitive-Behavioral (ICD-10-PCS; 2016-09-05)
PROC: GZ56ZZZ Individual Psychotherapy, Supportive (ICD-10-PCS; 2016-09-05)
PROC: HZ59ZZZ Individual Psychotherapy for Substance Abuse Treatment, Supportive (ICD-10-PCS; 2016-09-05)
PROC: HZ56ZZZ Individual Psychotherapy for Substance Abuse Treatment, Psychoeducation (ICD-10-PCS; 2016-09-05)
DX: F10.239 Alcohol dependence with withdrawal, unspecified (principal); F33.3 Major depressive disorder, recurrent, severe with psychotic symptoms; E87.6 Hypokalemia; K57.92 Diverticulitis of intestine, part unspecified, without perforation or abscess without bleeding; I10 Essential (primary) hypertension

== ENCOUNTER 2016-11-10 14:46 | Inpatient (IN) | payer MEDICAID ==
[2016-11-10 14:46] VITALS: BMI 21.4
--- NOTE | 2016-11-10 15:48 | C.PDOC ---
History Of Present Illness 51 y/o male presents to ED for evaluation of suicidal ideation for the past week. States he is hearing voices to hurt himself. Otherwise, denies any homicidal ideation, or any physical complaints at this time. Time Seen by Provider: 11/10/16 15:00 Chief Complaint (Nursing): Psychiatric Evaluation History Per: Patient History/Exam Limitations: no limitations Onset/Duration Of Symptoms: Days Current Symptoms Are (Timing): Still Present Modifying Factor(s): None Severity: None Pain Scale Rating Of: 0 Associated Symptoms: Suicidal Thoughts Involuntary Hold By: None Recent travel outside of the [place]: No Additional History Per: Patient Past Medical History Reviewed: Historical Data, Nursing Documentation, Vital Signs Vital Signs: Last Vital Signs Temp 98.7 F 11/10/16 14:49 Pulse 114 H 11/10/16 14:49 Resp 20 11/10/16 14:49 BP 144/89 11/10/16 14:49 Pulse Ox 94 L 11/10/16 16:48 - Medical History PMH: Anemia, Anxiety, Arthritis, Bipolar Disorder, Depression, Diverticulitis, Gastritis, Post Traumatic Stress Disorder Surgical History: Cholecystectomy - [facility] ALCOHOL DETOXIFICATION (04/14/14) DETOXIFICATION SERVICES FOR SUBSTANCE ABUSE TREATMENT (09/05/16) GROUP ACCORDION REPAIRER FOR SUBSTANCE ABUSE TREATMENT, PSYCHOEDUCATION (08/20/16) GROUP PSYCHOTHERAPY (09/05/16) INDIV PSYCHOTHERAPY FOR SUBSTANCE ABUSE TREATMENT, SUPPORT (09/05/16) INDIV PSYCHOTHERAPY FOR SUBSTANCE ABUSE, COGNITIV BEHAVIORAL (09/05/16) INDIV PSYCHOTHERAPY FOR SUBSTANCE ABUSE, PSYCHOEDUCATION (09/05/16) INDIVIDUAL PSYCHOTHERAPY, COGNITIVE-BEHAVIORAL (09/05/16) INDIVIDUAL PSYCHOTHERAPY, SUPPORTIVE (09/05/16) MEDICATION MANAGEMENT (08/20/16) Family History: States: No Known Family Hx - Social History Hx Tobacco Use: Yes Hx Alcohol Use: Yes Hx Substance Use: Yes - Immunization History Hx Tetanus Toxoid Vaccination: No Hx Influenza Vaccination: No Hx Pneumococcal Vaccination: No Review Of Systems Except As Marked, All Systems Reviewed And Found Negative. Constitutional: Negative for: Fever Cardiovascular: Negative for: Chest Pain, Palpitations Respiratory: Negative for: Shortness of Breath Psych: Positive for: Suicidal ideation Physical Exam - Physical Exam Additional Physical Exam Comments: Constitutional: No acute distress. Head: Normocephalic. Atraumatic. Eyes: PERRL. ENT: Moist mucous membranes. Neck: Supple. Cardiovascular: Regular rate. Radial pulse 2+ bilaterally. Chest: No tenderness. Respiratory: Clear to auscultation bilaterally. GI: Soft. Nontender. Nondistended. Back: No CVA tenderness. Musculoskeletal: No tenderness or swelling of extremities. Skin: No rash. Neurologic: Alert, no focal deficit. ED Course And Treatment - Laboratory Results Result Diagrams: 11/10/16 15:59 11/10/16 15:59 O2 Sat by Pulse Oximetry: 94 Medical Decision Making Medical Decision Making: Will clear patient for psych evaluation. Blood work, UA ordered and reviewed. Pending crisis evaluation. medically cleared at 16:47. Disposition Discussed With DrShade: Elidia Vuong - Disposition Disposition: HOSPITALIZED Disposition Time: 16:47 Condition: FAIR Forms: [facility] (Portuguese) - Clinical Impression Clinical Impression: Major depression, Alcohol use disorder, severe, dependence - Scribe Statement The provider has reviewed the documentation as recorded by the Harpreetibtrevin Lee All medical record entries made by the Harpreetibtrevin were at my direction and personally dictated by me. I have reviewed the chart and agree that the record accurately reflects my personal performance of the history, physical exam, medical decision making, and the department course for this patient. I have also personally directed, reviewed, and agree with the discharge instructions and disposition.
[2016-11-10 16:05] LABS: BASO # 0.1 K/uL (0.0-0.2); BASO % 1.1 % (0.0-2.0); EOS # 0.1 K/uL (0.0-0.7); HEMATOCRIT 40.1 % (35.0-51.0); LYMPH # 1.6 K/uL (1.0-4.3); LYMPH % 22.2 % (20.0-40.0); MEAN CELL VOLUME 82.5 fL (80.0-94.0); MEAN CORPUSCULAR HEMOGLOBIN 26.3 pg (27.0-31.0); MEAN CORPUSCULAR HGB CONC 31.8 g/dL (33.0-37.0); MEAN PLATELET VOLUME 8.4 fL (7.2-11.7); MONO # 0.5 K/uL (0.0-0.8); MONO % 7.3 % (0.0-10.0); NRBC % 0.6 % (0.0-2.0); RED CELL DISTRIBUTION WIDTH 13.6 % (11.5-14.5)
[2016-11-10 16:11] LABS: CHLORIDE 100 mmol/L (98-107); POTASSIUM 2.7 mmol/L (3.6-5.2); SODIUM 143 mmol/L (132-148)
[2016-11-10 16:13] LABS: GFR AFRICAN-AMERICAN > 60
[2016-11-10 16:14] LABS: ALB/GLOB RATIO 1.3 (1.0-2.1); ALKALINE PHOSPHATASE 60 U/L (38-126); ALT/SGPT 23 U/L (21-72); AST/SGOT 28 U/L (17-59); BILIRUBIN,TOTAL 1.4 mg/dL (0.2-1.3); BLOOD UREA NITROGEN 8 mg/dL (9-20); CALCIUM 8.9 mg/dl (8.6-10.4); CARBON DIOXIDE 23 mmol/L (22-30); GLUCOSE,RANDOM 97 mg/dL (75-110); TOTAL PROTEIN 7.9 g/dL (6.3-8.3)
[2016-11-10 16:15] LABS: ALCOHOL SERUM 163 mg/dl (0-10)
[2016-11-10] MEDS ORDERED: Potassium Chloride 20 mEq ER Tab PO STA (16:16)
[2016-11-10 16:32] LABS: RBC URINE 1 /hpf (0-3); URINE BACTERIA RARE (<OCC); URINE BILIRUBIN NEGATIVE (NEGATIVE); URINE BLOOD NEGATIVE (NEGATIVE); URINE COLOR Yellow (YELLOW); URINE GLUCOSE (UA) NORMAL (Normal); URINE KETONE NEGATIVE (NEGATIVE); URINE LEUKOCYTE ESTERASE NEG Leu/uL (Negative); URINE PROTEIN 2+ mg/dL (NEGATIVE); URINE UROBILINOGEN NORMAL mg/dL (0.2-1.0); WBC URINE 5 /hpf (0-5)
[2016-11-10] MEDS ORDERED: Potassium Chloride 20 mEq ER Tab PO ONE (16:38)
--- NOTE | 2016-11-10 22:23 | PCM.BM ---
<Aliyah De Guzman - Last Filed: 11/10/16 22:21> Treatment Plan Problems - Problems identified on initial assessmt Auditory Hallucination Date Initiated: 11/10/16 Time Initiated: 19:50 Assessment reference: NA Status: Active Alcohol Abuse Date Initiated: 11/10/16 Time Initiated: 19:50 Assessment reference: NA Status: Active Treatment assets and liabiliti Patient Assests: adapts well, ADL independent, good support system Patient Liabilities: substance abuse (Alcohol), medical problems - Milieu Protocol Maintain good personal hygiene: daily Encourage regular showers, daily Remind patient to perform daily oral care Maintain personal safety: every shift Educate patient to report safety concerns to staff, every shift Monitor environment for contraband/sharps Medication safety: Monitor for expected outcome, potential side effects: every shift, Assess barriers to learning: every shift, Assess readiness for medication education: every shift <Jocelyn Rooney - Last Filed: 11/11/16 11:01> Family Contact Family involvement: Famliy/SO not involved - Goals for Treatment Patient goals for treatment: "I need an outpatient treatment program." Discharge/Continuing Care - Education Needs Education Needs: Patient Medication, Patient Coping Skills - Discharge Discharge Criteria: Tolerates medication w/o severe side effects, Free of Suicidal thoughts, Reduction of target symptoms Discharge to:: Home - Treatment Team Participation Discussed with Family/SO: No Was Patient/Family/SO present at Treatment Team Meeting: Yes <Elidia Vuong - Last Filed: 11/11/16 11:07> - Diagnosis (1) Major depression Status: Acute Interventions: 11/11/16 11:07 * Assess/adjust medications daily and /or as needed * See patient on an individual basis 7x/week to assess level of manic behaviors and stability * Discuss risks, benefits, side effects and alternatives of medications (2) Alcohol abuse Status: Acute Interventions: 11/11/16 11:07 * Assess 7x/week regarding severity of withdrawal * Educate regarding risks, benefits, side effects and alternatives of medications * Use Motivational Interviewing for abstinence * Use CBT for relapse prevention * Medication management for withdrawal symptoms * Encourage medication assisted treatment
[2016-11-11 08:23] VITALS: O2SAT 99
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
[2016-11-11] MEDS ORDERED: Aluminum Hydroxide/Magnesium Hydroxide Susp (30 mL) PO PRN (11:03)
[2016-11-11] MEDS ORDERED: Benzocaine/Menthol (Cepacol) Lozenge PO PRN (11:03)
[2016-11-11] MEDS: Multiple Vitamins Tab PO SCH (11:31)
[2016-11-11] MEDS: Pantoprazole 40 mg EC Tab PO SCH (17:38)
[2016-11-12] MEDS: Multiple Vitamins Tab PO SCH (09:24)
[2016-11-12] MEDS: Pantoprazole 40 mg EC Tab PO SCH (09:24)
--- NOTE | 2016-11-12 11:37 | PCM.PYCHPN ---
Psychiatric Progress Note - Psychiatric Progress Note Patient seen today, length of contact: 16 min Patient Chief Complaint: Feeling better but still depressed Problems Identified/Issues Discussed: Patient seen and evaluated, chart reviewed and discussed with the nurse. Patient cooperative, open, alert, and talkative throughout interview. Patient states that he is feeling "okay" and slept well last night. He reports persistent feelings of depression and worry about his medical and psychiatric problems, his living situation, and persistent grief over the of his mother. He states that he feels like the world is on his shoulders. He reports that his appetite is starting to come back. Patient denies visual or auditory hallucinations. Denies feelings like anyone is following or watching him. Regarding withdrawal symptoms, patient reports no tremor, no nausea, no vomiting, sweating yesterday but none today, no headache, and heart racing yesterday but not today. He notes that he has a little diarrhea from his chronic GI issues and chronic pain from osteoarthritis. He is taking medications and denies any side effects. Medication Change: Yes Medical Record Reviewed: Yes Mental Status Examination - Cognitive Function Orientation: Person, Place, Situation, Time Memory: Intact Attention: WNL Concentration: Poor Association: WNL Fund of Knowledge: Poor - Mood Mood: Depressed, Anxious - Affect Affect: Broad - Speech Speech: Pressured - Formal Thought Process Formal Thought Process: Hallucinations, Flight of ideas, Circumstantial - Suicidal Ideation Suicidal Ideation: No - Homicidal Ideation Homicidal Ideation: No Goal/Treatment Plan - Goal/Treatment Plan Need for Continued Stay: Severe depression anxiety, Severe functional impairment Progress Toward Problem(s) and Goals/Treatment Plan: Bipolar disorder mixed severe with psychotic features CBT Psychoeducation Supportive therapy, group therapy, individual therapy Neurontin 100 mg by mouth 3 times a day Trazodone 50 mg by mouth daily at bedtime Alcohol use disorder severe CBT Psychoeducation Supportive therapy, individual therapy Use [place] for abstinence Alcohol withdrawal uncomplicated CBT Psychoeducation Supportive therapy, individual therapy Librium when necessary Start Librium taper Start folic acid/thiamine/multivitamin - Smoking Cessation Smoking Cessation Initiated: No
[2016-11-13] MEDS: Multiple Vitamins Tab PO SCH (09:48)
[2016-11-13] MEDS: Pantoprazole 40 mg EC Tab PO SCH (09:48)
[2016-11-13] MEDS ORDERED: Divalproex 250 mg DR Tab PO STA (10:13)
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
[2016-11-13] MEDS: Divalproex 250 mg DR Tab PO SCH (17:48)
[2016-11-14] MEDS: Pantoprazole 40 mg EC Tab PO SCH (09:48)
[2016-11-14] MEDS: Multiple Vitamins Tab PO SCH (09:48)
[2016-11-14] MEDS: Divalproex 250 mg DR Tab PO SCH ×3 (09:48→18:34)
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
[2016-11-14] MEDS: Hemorrohoidal Ointment (2 oz) TOP PRN (21:27)
[2016-11-15] MEDS: Divalproex 250 mg DR Tab PO SCH ×2 (09:22→17:16)
[2016-11-15] MEDS: Pantoprazole 40 mg EC Tab PO SCH (09:22)
[2016-11-15] MEDS: Multiple Vitamins Tab PO SCH (09:23)
[2016-11-15] MEDS: Hemorrohoidal Ointment (2 oz) TOP PRN (10:03)
--- NOTE | 2016-11-15 12:17 | PCM.PYCHPN ---
Psychiatric Progress Note - Psychiatric Progress Note Patient seen today, length of contact: 16 min Patient Chief Complaint: "I'm anxious" Problems Identified/Issues Discussed: The pt is seen, chart reviewed, case discussed with staff. Support given, CBT and [place] used briefly No new symptoms reported, improving slowly and needs more time No SEs from medications, risks discussed. After care discussed, and he now wants to "try" [place] as his [employer] worker is trying to get him there (?) We arranged f/u at [facility] and [facility] Medication Change: No Medical Record Reviewed: Yes Mental Status Examination - Cognitive Function Orientation: Person, Place, Situation, Time Memory: Intact Attention: WNL Concentration: Poor Association: WNL Fund of Knowledge: Poor - Mood Mood: Depressed, Anxious - Affect Affect: Broad - Speech Speech: Pressured - Formal Thought Process Formal Thought Process: Hallucinations (rare), Loosening of associations, Circumstantial - Suicidal Ideation Suicidal Ideation: No - Homicidal Ideation Homicidal Ideation: No Goal/Treatment Plan - Goal/Treatment Plan Need for Continued Stay: Discharge may exacerbated symptoms, Severe functional impairment Progress Toward Problem(s) and Goals/Treatment Plan: Continue medications Support and psychoeducation daily Attend groups and activities daily After care planning by [facility] rehab but IOP until then
[2016-11-16] MEDS: Pantoprazole 40 mg EC Tab PO SCH (09:07)
[2016-11-16] MEDS: Divalproex 250 mg DR Tab PO SCH (09:07)
[2016-11-16] MEDS: Multiple Vitamins Tab PO SCH (09:08)
[2016-11-16 09:24] VITALS: BP 128/82; PULSE 76; RESP 20; TEMP 98.1
== END 2016-11-16 12:20 | disposition home or self-care (01) | DRG 430 ==
LOC: C.ER 14:46 → C.5E 17:52
PROVIDERS: ADMIT Psychiatry & Neurology Psychiatry; ATTEND Psychiatry & Neurology Psychiatry
PROC: HZ2ZZZZ Detoxification Services for Substance Abuse Treatment (ICD-10-PCS; principal; 2016-11-10)
PROC: GZ56ZZZ Individual Psychotherapy, Supportive (ICD-10-PCS; 2016-11-10)
DX: F31.64 Bipolar disorder, current episode mixed, severe, with psychotic features (principal); K57.92 Diverticulitis of intestine, part unspecified, without perforation or abscess without bleeding; R45.851 Suicidal ideations; F10.230 Alcohol dependence with withdrawal, uncomplicated; I10 Essential (primary) hypertension; F41.0 Panic disorder [episodic paroxysmal anxiety]; G89.29 Other chronic pain; M19.90 Unspecified osteoarthritis, unspecified site; Z87.891 Personal history of nicotine dependence; F10.229 Alcohol dependence with intoxication, unspecified; F12.10 Cannabis abuse, uncomplicated; Y90.6 Blood alcohol level of 120-199 mg/100 ml

== ENCOUNTER 2017-02-07 20:51 | Inpatient (IN) | payer MEDICAID ==
[2017-02-07 20:51] VITALS: BMI 21.4
--- NOTE | 2017-02-07 21:38 | C.PDOC ---
History Of Present Illness 51 year old male presents to the ER complaining of feeling depressed with suicidal ideation. Patient admits to ETOH use but denies drug abuse or homicidal ideation. Chief Complaint (Nursing): Psychiatric Evaluation History Per: Patient History/Exam Limitations: no limitations Onset/Duration Of Symptoms: Days Current Symptoms Are (Timing): Still Present Suicide/Self Injury Attempted (Context): None Modifying Factor(s): Alcohol Associated Symptoms: Depression, Suicidal Thoughts. denies: Suicidal Plan Involuntary Hold By: None Recent travel outside of the [place]: No Past Medical History Reviewed: Historical Data, Nursing Documentation, Vital Signs Vital Signs: Last Vital Signs Temp 97.4 F L 02/07/17 21:03 Pulse 95 H 02/07/17 21:03 Resp 18 02/07/17 21:03 BP 118/71 02/07/17 21:03 Pulse Ox 97 02/07/17 21:40 - Medical History PMH: Anemia, Anxiety, Arthritis, Bipolar Disorder, Depression, Diverticulitis, Gastritis, HTN, Post Traumatic Stress Disorder, Seizures Surgical History: Cholecystectomy - [facility] Procedures ALCOHOL DETOXIFICATION (04/14/14) DETOXIFICATION SERVICES FOR SUBSTANCE ABUSE TREATMENT (11/10/16) GROUP FLIGHT TECHNICIAN FOR SUBSTANCE ABUSE TREATMENT, PSYCHOEDUCATION (08/20/16) GROUP PSYCHOTHERAPY (09/05/16) INDIV PSYCHOTHERAPY FOR SUBSTANCE ABUSE TREATMENT, SUPPORT (09/05/16) INDIV PSYCHOTHERAPY FOR SUBSTANCE ABUSE, COGNITIV BEHAVIORAL (09/05/16) INDIV PSYCHOTHERAPY FOR SUBSTANCE ABUSE, PSYCHOEDUCATION (09/05/16) INDIVIDUAL PSYCHOTHERAPY, COGNITIVE-BEHAVIORAL (09/05/16) INDIVIDUAL PSYCHOTHERAPY, SUPPORTIVE (11/10/16) MEDICATION MANAGEMENT (08/20/16) Family History: States: Unknown Family Hx - Social History Hx Tobacco Use: Yes Hx Alcohol Use: Yes Hx Substance Use: No - Immunization History Hx Tetanus Toxoid Vaccination: No Hx Influenza Vaccination: No Hx Pneumococcal Vaccination: No Review Of Systems Constitutional: Negative for: Fever, Chills Gastrointestinal: Negative for: Nausea, Vomiting, Diarrhea Psych: Positive for: Suicidal ideation Physical Exam - Physical Exam Appears: Non-toxic, No Acute Distress, Other (Verbalizing suicidal ideation, no plan) Skin: Normal Color, Warm, Dry Head: Atraumatic, Normacephalic Oral Mucosa: Moist Chest: Symmetrical, No Tenderness Cardiovascular: Rhythm Regular Respiratory: Normal Breath Sounds, No Rales, No Rhonchi, No Wheezing Gastrointestinal/Abdominal: Soft, No Tenderness Neurological/Psych: Oriented x3, Normal Speech ED Course And Treatment - Laboratory Results Result Diagrams: 02/07/17 21:48 02/07/17 21:48 O2 Sat by Pulse Oximetry: 97 (Room air) Pulse Ox Interpretation: Normal Progress Note: Blood work and urinalysis ordered. Crisis notified. Disposition Discussed With Dr.: Elidia Vuong Doctor Will See Patient In The: Hospital Counseled Patient/Family Regarding: Diagnosis - Disposition Disposition: HOSPITALIZED Disposition Time: 00:20 Condition: STABLE Forms: [email or web address] (Greenlandic) - Clinical Impression Clinical Impression: Bipolar disorder, Disorder due to alcohol abuse - Scribe Statement The provider has reviewed the documentation as recorded by the Scribe Bradley Rivera All medical record entries made by the Scribe were at my direction and personally dictated by me. I have reviewed the chart and agree that the record accurately reflects my personal performance of the history, physical exam, medical decision making, and the department course for this patient. I have also personally directed, reviewed, and agree with the discharge instructions and disposition.
[2017-02-07 21:51] LABS: BASO # 0.1 K/uL (0.0-0.2); BASO % 1.2 % (0.0-2.0); EOS # 0.4 K/uL (0.0-0.7); EOS % 5.8 % (0.0-4.0); HEMATOCRIT 37.4 % (35.0-51.0); LYMPH # 2.8 K/uL (1.0-4.3); LYMPH % 39.1 % (20.0-40.0); MEAN CELL VOLUME 78.9 fL (80.0-94.0); MEAN CORPUSCULAR HEMOGLOBIN 24.7 pg (27.0-31.0); MEAN CORPUSCULAR HGB CONC 31.4 g/dL (33.0-37.0); MEAN PLATELET VOLUME 7.6 fL (7.2-11.7); MONO # 0.5 K/uL (0.0-0.8); MONO % 7.1 % (0.0-10.0); NRBC % 0.1 % (0.0-2.0); RED CELL DISTRIBUTION WIDTH 13.3 % (11.5-14.5); WHITE BLOOD COUNT 7.2 K/uL (4.8-10.8)
[2017-02-07 21:57] LABS: RBC URINE < 1 /hpf (0-3); URINE BILIRUBIN NEGATIVE (NEGATIVE); URINE BLOOD NEGATIVE (NEGATIVE); URINE COLOR Yellow (YELLOW); URINE GLUCOSE (UA) NORMAL (Normal); URINE KETONE NEGATIVE (NEGATIVE); URINE LEUKOCYTE ESTERASE NEG Leu/uL (Negative); URINE PROTEIN NEGATIVE (NEGATIVE); URINE UROBILINOGEN NORMAL mg/dL (0.2-1.0); WBC URINE 1 /hpf (0-5)
[2017-02-07 22:06] LABS: ALB/GLOB RATIO 1.3 (1.0-2.1); ALCOHOL SERUM 110 mg/dl (0-10); ALKALINE PHOSPHATASE 61 U/L (38-126); ALT/SGPT 79 U/L (21-72); AST/SGOT 33 U/L (17-59); BILIRUBIN,TOTAL 0.8 mg/dL (0.2-1.3); BLOOD UREA NITROGEN 11 mg/dL (9-20); CALCIUM 8.5 mg/dl (8.6-10.4); CARBON DIOXIDE 26 mmol/L (22-30); CHLORIDE 101 mmol/L (98-107); GFR AFRICAN-AMERICAN > 60; GLUCOSE,RANDOM 90 mg/dL (75-110); POTASSIUM 3.7 mmol/L (3.6-5.2); SODIUM 138 mmol/L (132-148); TOTAL PROTEIN 7.8 g/dL (6.3-8.3)
--- NOTE | 2017-02-08 01:55 | PCM.BM ---
<Kinjal Knowles - Last Filed: 02/08/17 02:38> Treatment Plan Problems - Problems identified on initial assessmt Suicidal Ideation Date Initiated: 02/08/17 Time Initiated: 01:55 Assessment reference: NA Status: Active Substance Abuse Date Initiated: 02/08/17 Time Initiated: 01:55 Assessment reference: NA Status: Active Depression Date Initiated: 02/08/17 Time Initiated: 02:38 Assessment reference: NA Status: Active Treatment assets and liabiliti Patient Assests: adapts well, cooperative, insightful, resourceful, self-reliant , ADL independent, good support system, negotiates basic needs, cognitively intact ( ) Patient Liabilities: live alone, financial problems, poor support system, substance abuse - Milieu Protocol Maintain good personal hygiene: daily Encourage regular showers, daily Remind patient to perform daily oral care, daily Assist patient to perform ADL's Maintain personal safety: every shift Monitor environment for contraband/sharps , other Educate patient to report safety concerns to staff (as needed) Medication safety: Monitor for expected outcome, potential side effects: every shift, Assess barriers to learning: every shift, Assess readiness for medication education: every shift <Ana Roper - Last Filed: 02/09/17 05:26> - Diagnosis (1) Alcohol use disorder, severe, dependence Status: Acute Interventions: 02/09/17 05:26 * Assess 7x/week regarding severity of withdrawal * Educate regarding risks, benefits, side effects and alternatives of medications * Use Motivational Interviewing for abstinence * Use CBT for relapse prevention * Medication management for withdrawal symptoms * Encourage medication assisted treatment * (2) Bipolar disorder Status: Acute Interventions: 02/09/17 05:27 * Assess/adjust medications daily and /or as needed * See patient on an individual basis 7x/week to assess level of manic behaviors and stability * Discuss risks, benefits, side effects and alternatives of medications * <Jocelyn Rooney - Last Filed: 02/10/17 11:30> Family Contact Family involvement: Famliy/SO not involved - Goals for Treatment Patient goals for treatment: "I want to go back to my IOP program." Discharge/Continuing Care - Education Needs Education Needs: Patient Medication, Patient Coping Skills, Patient Placement options, Patient Community resources - Discharge Discharge Criteria: Tolerates medication w/o severe side effects, Free of Suicidal thoughts, No longer exhibiting s/s of withdrawal, Reduction of target symptoms Discharge to:: Home - Treatment Team Participation Discussed with Family/SO: No Was Patient/Family/SO present at Treatment Team Meeting: Yes
--- NOTE | 2017-02-08 18:51 | PCM.PSYCH ---
Initial Psychiatric Evaluation - Initial Psychiatric Evaluation Type of Admission: Voluntary Legal Status: Capacity Chief Complaint (in patient's own words): "Not feeling well" History of Present Illness and Precipitating Events: The patient is seen, chart reviewed and case discussed. This is a 51-year-old -Chinese male, single with no child, lives alone in the room in [place]. He says he was discharged from [facility] a month ago after 4-5 weeks and has been out of his meds. He is on welfare and applying for Social Security disability. He came to our ED with suicidal thoughts and a plan to OD on meds, but now denies all and looks better. The patient admits to drinking more than a pint of alcohol but only "two days." His first use was when he was 12 years old and in his life longest sobriety was about one year. He had more than 10 detoxes and four rehabs. Smokes cigarettes and also marijuana on and off. He denies all other drug use. He does NOT have withdrawal symptoms from alcohol. He claims he is accepted by [facility] and has to go soon, and out in a 48-hr notice, but tech writer convinced him to stay until Fri and start on Fri. Past psych history: He currently denies depression or anxiety. he had tx for about 10 years at [facility]. He says he was hospitalized one time in 2007 after a "meltdown" and also this year n 5 E and detox at . No suicide attempts Family psych history: All 3 of his sisters had alcohol or drug use. Dependence also used alcohol, painkillers and "everything." Medical history: Osteoarthritis, diverticulitis, gastritis. Current Medications: Active Medications Generic Name Dose Route Start Last Admin Trade Name Freq PRN Reason Stop Dose Admin Gabapentin 300 mg 02/09/17 10:00 Neurontin PO TID MARI Ibuprofen 800 mg 02/08/17 02:14 Motrin Tab PO Q8H PRN Pain, moderate (4-7) Quetiapine Fumarate 200 mg 02/08/17 22:00 Seroquel PO HS MARI Sertraline HCl 50 mg 02/08/17 16:15 02/08/17 16:44 Zoloft PO 50 mg DAILY MARI Administration Trazodone HCl 100 mg 02/08/17 01:41 02/08/17 02:03 Desyrel PO 100 mg HS PRN Administration Sleep Past Psychiatric History - Past Psychiatric History Previous Treatment History: Inpatient Pertinent Medical Hx (Current Medical&Sleep Prob, Allergies): Allergies Allergy/AdvReac Type Severity Reaction Status Date / Time No Known Allergies Allergy Verified 02/07/17 21:07 Divalproex Sodium [Divalproex Sodium ER] 500 mg PO DAILY 02/07/17 Ergocalciferol (Vitamin D2) [Vitamin D2] 50,000 unit PO QD7 02/07/17 Ferrous Sulfate [Feosol] 325 mg PO DAILY 02/07/17 Gabapentin [Neurontin] 300 mg PO BID 02/07/17 Hydroxyzine Pamoate 100 mg PO BID 02/07/17 Ibuprofen [Motrin Tab] 800 mg PO Q8 02/07/17 Multivitamin [Multi-Vitamin Daily] 1 tab PO DAILY 02/07/17 QUEtiapine [SEROquel] 200 mg PO DAILY 02/07/17 diaZEpam [Valium] 5 mg PO DAILY 02/07/17 traZODone [Desyrel] 200 mg PO BID 02/07/17 Review of Systems - Neurological Neurological: UNREMARKABLE - Psychiatric Psychiatric: Abnormal Sleep Pattern, Anxiety, Depression. absent: Hallucinations, Homicidal Ideation, Suicidal Ideation Mental Status Examination - Personal Presentation Personal Presentation: Looks stated age - Affect Affect: Broad - Motor Activity Motor Activity: Calm - Reliability in Providing Information Reliability in Providing Information: Good - Speech Speech: Organized - Mood Mood: Depressed, Anxious - Formal Thought Process Formal Thought Process: No Impairment - Cognitive Functions Orientation: Person, Place, Situation, Time Sensorium: Alert Attention/Concentration: Attentive Estimate of Intelligence: Average Judgement: Intact, as evidence by: Insight regarding need for hospitalization Memory: Recent intact, as evidence by: Ability to recall events of the day, Remote intact, as evidenced by: Abilit to recall sig. life events - Risk Risk: Diminished functioning - Strength & Assets Inventory Strength & Assets Inventory: Life experience, Cooperative - Limitations Limitations: Living alone DSM 5 DX - DSM 5 DSM 5 Diagnosis: Bipolar 1 d/o - depressed Alcohol use d/o - severe in partial remission - Recommended/Plan of Treatment Treatment Recommendations and Plan of Treatment: resume psych meds - seroquel, zoloft (it's not fully clear if he has MDD vs BPD ) As needed medications Gabapentin for augmentation Attend groups and activities Supportive therapy and psychoeducation [place] for abstinence CBT for relapse prevention Encourage MAT, ie naltrexone Refer to IOP Attend self-help groups as well 34 min Projected ELOS: 3-4 days Prognosis: good w treatment - Smoking Cessation Smoking Cessation Initiated: Yes
--- NOTE | 2017-02-09 12:52 | PCM.PYCHPN ---
Psychiatric Progress Note - Psychiatric Progress Note Patient seen today, length of contact: 15 min Patient Chief Complaint: I am feeling depressed. Problems Identified/Issues Discussed: Patient seen and evaluated, chart reviewed and discussed with the nurse. Patient remained isolated, confined and withdrawn. Patient reports withdrawal symptoms including nausea, headaches, and sweating. He reports depressed mood and feelings of hopelessness and helplessness. He is taking medication and denies any side effects. He needs more time for stabilization. Supportive therapy and psychoeducation were given. Medication Change: No Medical Record Reviewed: Yes Mental Status Examination - Cognitive Function Orientation: Person, Place, Situation, Time Memory: Intact Attention: WNL Concentration: Poor Association: WNL Fund of Knowledge: Poor - Mood Mood: Depressed, Anxious - Affect Affect: Broad - Speech Speech: Soft - Formal Thought Process Formal Thought Process: No Impairment - Suicidal Ideation Suicidal Ideation: No - Homicidal Ideation Homicidal Ideation: No Goal/Treatment Plan - Goal/Treatment Plan Need for Continued Stay: Severe depression anxiety, Severe functional impairment Progress Toward Problem(s) and Goals/Treatment Plan: Bipolar 1 d/o - depressed Alcohol use d/o - severe in partial remission resume psych meds - seroquel, zoloft (it's not fully clear if he has MDD vs BPD ) As needed medications Gabapentin for augmentation Attend groups and activities Supportive therapy and psychoeducation [place] for abstinence CBT for relapse prevention Encourage MAT, ie naltrexone Refer to IOP Attend self-help groups as well - Smoking Cessation Smoking Cessation Initiated: No
--- NOTE | 2017-02-10 09:43 | PCM.PYCHPN ---
Psychiatric Progress Note - Psychiatric Progress Note Patient seen today, length of contact: 16 min Patient Chief Complaint: I am feeling little better Problems Identified/Issues Discussed: Patient seen and evaluated, chart reviewed and discussed with the nurse. As per the staff, pt started coming out of his room and reports improvement in the withdrawal symptoms including nausea, headaches, and sweating. He reports improvement in his depressed mood and feelings of hopelessness and helplessness. He is taking medication and denies any side effects. He needs more time for stabilization. Supportive therapy and psychoeducation were given. Medication Change: Yes (increase Zoloft) Medical Record Reviewed: Yes Mental Status Examination - Cognitive Function Orientation: Person, Place, Situation, Time Memory: Intact Attention: WNL Concentration: Poor Association: WNL Fund of Knowledge: Poor - Mood Mood: Depressed, Anxious - Affect Affect: Broad - Speech Speech: Soft - Formal Thought Process Formal Thought Process: No Impairment - Suicidal Ideation Suicidal Ideation: No - Homicidal Ideation Homicidal Ideation: No Goal/Treatment Plan - Goal/Treatment Plan Need for Continued Stay: Severe depression anxiety, Severe functional impairment Progress Toward Problem(s) and Goals/Treatment Plan: resume psych meds - seroquel, zoloft (it's not fully clear if he has MDD vs BPD ) As needed medications Gabapentin for augmentation Attend groups and activities Supportive therapy and psychoeducation [place] for abstinence CBT for relapse prevention Encourage MAT, ie naltrexone Refer to IOP Attend self-help groups as well - Smoking Cessation Smoking Cessation Initiated: No
[2017-02-10] MEDS ORDERED: Ergocalciferol 50,000 Intl Units Cap PO SCH (12:00)
[2017-02-11 07:48] VITALS: BP 124/77; PULSE 76; RESP 20; TEMP 98.6; O2SAT 98
--- NOTE | 2017-02-11 10:26 | PCM.PYCHDC ---
Mental Status Examination - Mental Status Examination Orientation: Person, Place, Situation, Time Memory: Intact Mood: Neutral Affect: Constricted Speech: Soft Attention: WNL Concentration: WNL Association: WNL Fund of Knowledge: WNL Formal Thought Process: No Impairment Description of patient's judgement and insight: good, fair Psychotic Thoughts and Behaviors: denies any AVH Suicidal Ideation: No Current Homicidal Ideation?: No Discharge Summary - Discharge Note Reason for Hospitalization: This is a 51-year-old -Citizen Of [place] male, single with no child, lives alone in the room in [place]. He says he was discharged from [facility] a month ago after 4-5 weeks and has been out of his meds. He is on welfare and applying for Social Security disability. He came to our ED with suicidal thoughts and a plan to OD on meds, but now denies all and looks better. The patient admits to drinking more than a pint of alcohol but only "two days." His first use was when he was 12 years old and in his life longest sobriety was about one year. He had more than 10 detoxes and four rehabs. Smokes cigarettes and also marijuana on and off. He denies all other drug use. He does NOT have withdrawal symptoms from alcohol. He claims he is accepted by [facility] and has to go soon, and out in a 48-hr notice, but news writer convinced him to stay until Fri and start on Fri. Past psych history: He currently denies depression or anxiety. he had tx for about 10 years at [facility]. He says he was hospitalized one time in 2007 after a "meltdown" and also this year n 5 E and detox at . No suicide attempts Consultations:: List each consultation separately and include: 1. Reason for request. 2. Findings. 3. Follow-up Summary of Hospital Course include:: 1. Description of specific treatment plan utilized for patients during their course of treatmen. 2. Summarize the time- course for resolution of acute symptoms and/or regressed behaviors. 3. Describe issues identified and worked on during hospitalization. 4. Describe medication utilized. 5. Describe medical problems identified and treated. 6. Reassessment of suicide risk Summary of Hospital Course: During the course of his stay, patient (pt) started progressively improving and he no longer remained anxious and irritable/depressed, paranoid and psychotic. He tolerated the medications and denied any adverse effects sweating, tremors or stiffness. He started attending groups and meetings and started socializing. He denied any feelings of hopelessness, helplessness, and worthlessness, denied any problem with the sleep or appetite, denied suicidal ideation or homicidal ideation. Pt denied any auditory or visual hallucinations. Patient remained calm and cooperative and remained compliant with the medications. Patient tolerated the medications very well and denied any side effects. SW called [facility] program today and was told that pt can return to program on 02/12/17 at 10 a.m. - Final Diagnosis (DSM 5) Condition upon Discharge: STABLE DSM 5: Bipolar 1 d/o - depressed Alcohol use d/o - severe in partial remission Disposition: HOME/ ROUTINE Follow-up Treatment Plan: Education: Pt was educated and counseled about the risks and benefits of taking and not taking medications. Pt was educated and counseled about the risks of drinking and abusing drugs. Pt was educated and counseled to go to the ER or call 911 if pt develop suicidal ideation or homicidal ideation, worsening of symptoms or severe side effects of the meds. Prescriptions/Medication Reconciliation: amLODIPine [Norvasc] 5 mg PO DAILY #30 tab Gabapentin [Neurontin] 300 mg PO BID #60 cap QUEtiapine [SEROquel] 200 mg PO HS #30 tab Sertraline [Zoloft] 100 mg PO DAILY #60 tab traZODone [Desyrel] 100 mg PO HS #30 tab - Smoking Cessation Smoking Cessation Medication prescribed: No - Antipsychotic Medications Pt discharged on 2 or more routine antipsychotic medications: No
--- NOTE | 2017-02-13 22:36 | PCM.PYCHPN ---
Psychiatric Progress Note - Psychiatric Progress Note Patient seen today, length of contact: 15 min Patient Chief Complaint: I am feeling much better Problems Identified/Issues Discussed: Patient seen and evaluated, chart reviewed and discussed with the nurse. Pt reports improvement in his mood and improvement in the withdrawal symptoms. He is taking medication and denies any side effects. He needs more time for stabilization. Supportive therapy and psychoeducation were given. Medication Change: No Medical Record Reviewed: Yes Mental Status Examination - Cognitive Function Orientation: Person, Place, Situation, Time Memory: Intact Attention: WNL Concentration: WNL Association: WN Fund of Knowledge: [facility] Decription of patient's judgement and insights: good, fair - Mood Mood: Neutral - Affect Affect: Constricted - Speech Speech: Soft - Formal Thought Process Formal Thought Process: No Impairment Psychotic Thoughts and Behaviors: denies any AVH - Suicidal Ideation Suicidal Ideation: No - Homicidal Ideation Homicidal Ideation: No Goal/Treatment Plan - Goal/Treatment Plan Need for Continued Stay: Severe depression anxiety, Severe functional impairment Progress Toward Problem(s) and Goals/Treatment Plan: resume psych meds - seroquel, zoloft (it's not fully clear if he has MDD vs BPD ) As needed medications Gabapentin for augmentation Attend groups and activities Supportive therapy and psychoeducation [place] for abstinence CBT for relapse prevention Encourage MAT, ie naltrexone Refer to IOP Attend self-help groups as well
== END 2017-02-11 13:05 | disposition home or self-care (01) | DRG 430 ==
LOC: C.ER 20:51 → C.5E 02-08 00:22
PROVIDERS: ADMIT Psychiatry & Neurology Psychiatry; ATTEND Psychiatry & Neurology Psychiatry
PROC: GZHZZZZ Group Psychotherapy (ICD-10-PCS; principal; 2017-02-08)
PROC: GZ58ZZZ Individual Psychotherapy, Cognitive-Behavioral (ICD-10-PCS; 2017-02-08)
PROC: GZ56ZZZ Individual Psychotherapy, Supportive (ICD-10-PCS; 2017-02-08)
DX: F31.9 Bipolar disorder, unspecified (principal); R45.851 Suicidal ideations; F41.8 Other specified anxiety disorders; F10.21 Alcohol dependence, in remission; F12.90 Cannabis use, unspecified, uncomplicated; F43.10 Post-traumatic stress disorder, unspecified; I10 Essential (primary) hypertension; Z90.49 Acquired absence of other specified parts of digestive tract; F17.210 Nicotine dependence, cigarettes, uncomplicated

== ENCOUNTER 2017-07-18 15:12 | Emergency (ER) | payer MEDICAID ==
[2017-07-18 15:23] VITALS: BMI 30.9
[2017-07-18] MEDS ORDERED: Naproxen 550 mg Tab PO STA (15:57)
[2017-07-18] MEDS ORDERED: Naproxen 550 mg Tab PO ONE (16:01)
[2017-07-18] MEDS ORDERED: Bacitracin 500 Units/gm Oint Foilpak UD TOP ONE (16:54)
[2017-07-18] MEDS ORDERED: Bacitracin 500 Units/gm Oint Foilpak UD ONE (17:06)
--- NOTE | 2017-07-18 17:07 | RAD ---
PROCEDURE: Bilateral Feet Radiographs. HISTORY: b/l foot pain COMPARISON: None. FINDINGS: BONES: Right Foot: No evidence of acute displaced fracture nor dislocation Left Foot: No evidence of acute displaced fracture nor dislocation JOINTS: Right Foot: Minor hallux valgus deformity with minimal degenerative osteoarthritis 1st MTP. Apparent pes planus deformity Left Foot: Normal. No osteoarthritis Minor hallux valgus . Apparent pes planus deformity SOFT TISSUES: Right Foot: Normal. Left Foot: Normal. OTHER FINDINGS: None. IMPRESSION: No evidence of acute displaced fracture nor dislocation. Minor hallux valgus deformities and minor DJD 1st MTP joints. . Apparent bilateral pes planus deformities.
--- NOTE | 2017-07-18 17:55 | C.PDOC ---
History Of Present Illness Pt c/o b/l foot pain. Time Seen by Provider: 07/18/17 15:49 Chief Complaint (Nursing): Lower Extremity Problem/Injury History Per: Patient Onset/Duration Of Symptoms: Days Current Symptoms Are (Timing): Still Present Severity: Moderate Additional History Per: Prior Records Past Medical History Reviewed: Historical Data, Nursing Documentation, Vital Signs Vital Signs: Last Vital Signs Temp 98.4 F 07/18/17 15:22 Pulse 109 H 07/18/17 15:22 Resp 20 07/18/17 15:22 BP 148/96 H 07/18/17 15:22 Pulse Ox 95 07/18/17 15:22 - Medical History PMH: Anemia, Anxiety, Arthritis, Bipolar Disorder, Depression, Diverticulitis, Gastritis, HTN, Post Traumatic Stress Disorder, Seizures Surgical History: Cholecystectomy - [facility] Procedures ALCOHOL DETOXIFICATION (04/14/14) DETOXIFICATION SERVICES FOR SUBSTANCE ABUSE TREATMENT (11/10/16) GROUP BUSINESS TRANSFORMATION CONSULTANT FOR SUBSTANCE ABUSE TREATMENT, PSYCHOEDUCATION (08/20/16) GROUP PSYCHOTHERAPY (02/08/17) INDIV PSYCHOTHERAPY FOR SUBSTANCE ABUSE TREATMENT, SUPPORT (09/05/16) INDIV PSYCHOTHERAPY FOR SUBSTANCE ABUSE, COGNITIV BEHAVIORAL (09/05/16) INDIV PSYCHOTHERAPY FOR SUBSTANCE ABUSE, PSYCHOEDUCATION (09/05/16) INDIVIDUAL PSYCHOTHERAPY, COGNITIVE-BEHAVIORAL (02/08/17) INDIVIDUAL PSYCHOTHERAPY, SUPPORTIVE (02/08/17) MEDICATION MANAGEMENT (08/20/16) Family History: States: Unknown Family Hx - Social History Hx Tobacco Use: Yes Hx Alcohol Use: Yes Hx Substance Use: Yes - Immunization History Hx Tetanus Toxoid Vaccination: No Hx Influenza Vaccination: No Hx Pneumococcal Vaccination: No Review Of Systems Except As Marked, All Systems Reviewed And Found Negative. Constitutional: Negative for: Fever, Weakness Cardiovascular: Negative for: Chest Pain Respiratory: Negative for: Shortness of Breath Gastrointestinal: Negative for: Vomiting, Abdominal Pain Musculoskeletal: Positive for: Foot Pain. Negative for: Neck Pain, Back Pain, Leg Pain Neurological: Negative for: Weakness, Numbness Physical Exam - Physical Exam Appears: Non-toxic, No Acute Distress Skin: Normal Color, Warm, Dry Head: Atraumatic, Normacephalic Eye(s): bilateral: PERRL, EOMI Neck: Normal ROM, Supple Cardiovascular: Rhythm Regular Respiratory: Normal Breath Sounds, No Accessory Muscle Use Gastrointestinal/Abdominal: Soft, No Tenderness Back: No Vertebral Tenderness Extremity: Normal ROM, Tenderness (mild, around b/l 1st metatarsals), No Pedal Edema, No Calf Tenderness, Capillary Refill (wnl), Other (small chronic appearing abrasion on dorsum of b/l feet. ) Extremity: Bilateral: Normal Color And Temperature Pulses: Left Dorsalis Pedis: Normal, Right Dorsalis Pedis: Normal Neurological/Psych: Oriented x3, Normal Motor, Normal Sensation ED Course And Treatment O2 Sat by Pulse Oximetry: 95 Pulse Ox Interpretation: Normal - Other Rad b/l Foot x-rays X-Ray: Viewed By Me, Read By Radiologist Interpretation: IMPRESSION: No evidence of acute displaced fracture nor dislocation. Minor hallux valgus deformities and minor DJD 1st MTP joints. . Apparent bilateral pes planus deformities. Reassessment Condition: Improved Disposition Counseled Patient/Family Regarding: Studies Performed, Diagnosis, Need For Followup, Rx Given - Disposition Disposition: HOME/ ROUTINE Disposition Time: 17:55 Condition: IMPROVED Additional Instructions: Follow up with your Esl Tutor for further evaluation and treatment. Return to the ER if you develop redness, swelling drainage, weakness, numbness, worsening of symptoms or if you have any other concerns. Prescriptions: Naproxen [Naprosyn] 1 tab PO BID PRN #20 tab PRN Reason: Pain Instructions: Metatarsalgia (DC) Forms: [employer] ([place]ian) - Clinical Impression Clinical Impression: Foot pain
[2017-07-18 18:09] VITALS: BP 156/82; PULSE 90; RESP 18; TEMP 98.2; O2SAT 96
== END 2017-07-18 18:08 | disposition home or self-care (01) ==
LOC: C.ER 15:12
DX: M79.672 Pain in left foot (principal); M79.671 Pain in right foot; I10 Essential (primary) hypertension; Z72.0 Tobacco use

== ENCOUNTER 2017-07-23 13:37 | Emergency (ER) | payer MEDICAID ==
[2017-07-23 13:38] VITALS: BMI 30.9
[2017-07-23 13:54] VITALS: BP 134/83; PULSE 96; RESP 20; TEMP 98.7; O2SAT 95
--- NOTE | 2017-07-23 15:15 | C.PDOC ---
History Of Present Illness 52 y/o male presents to the ED complaining of pain in both feet that began 1 week ago. Seen here 5 days ago, and discharged home on naproxen. Patient states his underliner is out of town until the . Pain in right foot improved and left foot worsened. Now having difficulty sleeping at night secondary to the pain. Time Seen by Provider: 07/23/17 14:25 Chief Complaint (Nursing): Lower Extremity Problem/Injury History Per: Patient History/Exam Limitations: no limitations Onset/Duration Of Symptoms: Days Current Symptoms Are (Timing): Still Present Past Medical History Reviewed: Historical Data, Nursing Documentation, Vital Signs Vital Signs: Last Vital Signs Temp 98.7 F 07/23/17 13:50 Pulse 96 H 07/23/17 13:50 Resp 20 07/23/17 13:50 BP 134/83 07/23/17 13:50 Pulse Ox 95 07/23/17 16:37 - Medical History PMH: Anemia, Anxiety, Arthritis, Bipolar Disorder, Depression, Diverticulitis, Gastritis, HTN, Post Traumatic Stress Disorder, Seizures Denies: HIV, Chronic Kidney Disease, Sexually Transmitted Disease Surgical History: Cholecystectomy - [facility] Procedures ALCOHOL DETOXIFICATION (04/14/14) DETOXIFICATION SERVICES FOR SUBSTANCE ABUSE TREATMENT (11/10/16) GROUP PRACTICE LEAD FOR SUBSTANCE ABUSE TREATMENT, PSYCHOEDUCATION (08/20/16) GROUP PSYCHOTHERAPY (02/08/17) INDIV PSYCHOTHERAPY FOR SUBSTANCE ABUSE TREATMENT, SUPPORT (09/05/16) INDIV PSYCHOTHERAPY FOR SUBSTANCE ABUSE, COGNITIV BEHAVIORAL (09/05/16) INDIV PSYCHOTHERAPY FOR SUBSTANCE ABUSE, PSYCHOEDUCATION (09/05/16) INDIVIDUAL PSYCHOTHERAPY, COGNITIVE-BEHAVIORAL (02/08/17) INDIVIDUAL PSYCHOTHERAPY, SUPPORTIVE (02/08/17) MEDICATION MANAGEMENT (08/20/16) Family History: States: Unknown Family Hx - Social History Hx Tobacco Use: Yes Hx Alcohol Use: No Hx Substance Use: No - Immunization History Hx Tetanus Toxoid Vaccination: No Hx Influenza Vaccination: No Hx Pneumococcal Vaccination: No Review Of Systems Except As Marked, All Systems Reviewed And Found Negative. Musculoskeletal: Positive for: Foot Pain Neurological: Negative for: Weakness, Numbness Physical Exam - Physical Exam Appears: Non-toxic, No Acute Distress Skin: Warm, Dry Head: Atraumatic, Normacephalic Eye(s): bilateral: Normal Inspection Extremity: Normal ROM, Capillary Refill (< 2 sec), Other (Left 1st MTP joint is erythematous, swollen, and warm) Pulses: Left Dorsalis Pedis: Normal, Right Dorsalis Pedis: Normal Neurological/Psych: Oriented x3, Normal Speech ED Course And Treatment O2 Sat by Pulse Oximetry: 95 (RA) Pulse Ox Interpretation: Normal Progress Note: Given Colchicine and prednisone in the ED. On reevaluation, patient is still complaining of pain. Given 1 tab of Percocet PO. [employer] checked , and patient has no history of any opiate use. Will d/c home with rx for Percocet. Patient instructed to take medication only at night if he cannot sleep , discussed possible dependence and risk for OD if misused. Advised patient to follow up with podiatry clinic. Disposition - Disposition Disposition: HOME/ ROUTINE Disposition Time: 16:33 Condition: STABLE Additional Instructions: Follow up with your PMD and Paint Coating Machine Operator within 1-2 days. Return to ED if feel worse. Prescriptions: Colchicine 0.6 mg PO TID #6 tablet Indomethacin [Indocin] 25 mg PO TID #21 cap Famotidine [Pepcid] 20 mg PO BID #20 tab oxyCODONE/Acetaminophen [Percocet 5/325 mg Tab] 1 tab PO QID PRN #10 tab PRN Reason: Pain Instructions: Lifestyle Changes to Manage Gout, Gout (DC), Low Purine Diet Forms: [employer] (Afghan) - Clinical Impression Clinical Impression: Gouty arthritis of left foot - PA / DELINQUENCY PREVENTION OFFICER / Resident Statement MD/DO has reviewed & agrees with the documentation as recorded. - Scribe Statement The provider has reviewed the documentation as recorded by the Scribe (Divina Oliva) All medical record entries made by the Scribe were at my direction and personally dictated by me. I have reviewed the chart and agree that the record accurately reflects my personal performance of the history, physical exam, medical decision making, and the department course for this patient. I have also personally directed, reviewed, and agree with the discharge instructions and disposition.
[2017-07-23] MEDS ORDERED: Oxycodone/Acetaminophen 5/325 mg Tab PO STA (15:56)
[2017-07-23] MEDS ORDERED: Oxycodone/Acetaminophen 5/325 mg Tab ONE (16:10)
== END 2017-07-23 16:48 | disposition home or self-care (01) ==
LOC: C.ER 13:37
DX: M10.9 Gout, unspecified (principal)

== ENCOUNTER 2017-08-26 12:24 | Inpatient (IN) | payer MEDICAID ==
[2017-08-26 12:24] VITALS: BMI 30.9
[2017-08-26 13:49] LABS: EOS # 0.3 K/uL (0.0-0.7); MONO # 0.5 K/uL (0.0-0.8); NEUT # 3.6 K/uL (1.8-7.0)
[2017-08-26 13:52] LABS: BASO # 0.1 K/uL (0.0-0.2); BASO % 1.4 % (0.0-2.0); EOS % 4.8 % (0.0-4.0); HEMOGLOBIN 13.2 g/dL (12.0-18.0); LYMPH # 1.6 K/uL (1.0-4.3); LYMPH % 26.1 % (20.0-40.0); MEAN CELL VOLUME 79.7 fL (80.0-94.0); MEAN CORPUSCULAR HEMOGLOBIN 25.5 pg (27.0-31.0); MEAN CORPUSCULAR HGB CONC 32.1 g/dL (33.0-37.0); MEAN PLATELET VOLUME 8.8 fL (7.2-11.7); MONO % 7.7 % (0.0-10.0); NRBC % 0.2 % (0.0-2.0); RBC 5.15 Mil/uL (4.40-5.90); RED CELL DISTRIBUTION WIDTH 13.8 % (11.5-14.5)
[2017-08-26 13:53] LABS: SQUAMOUS EPITHIAL < 1 /hpf (0-5); URINE BILIRUBIN NEGATIVE (NEGATIVE); URINE BLOOD NEGATIVE (NEGATIVE); URINE CLARITY Clear (Clear); URINE COLOR Yellow (YELLOW); URINE GLUCOSE (UA) NORMAL (Normal); URINE LEUKOCYTE ESTERASE NEG Leu/uL (Negative); URINE PROTEIN NEGATIVE (NEGATIVE); URINE UROBILINOGEN NORMAL mg/dL (0.2-1.0)
[2017-08-26 14:04] LABS: BARBITURATES, UR NEGATIVE (NEGATIVE); BENZODIAZEPINES, UR NEGATIVE (NEGATIVE); OPIATES, UR NEGATIVE (NEGATIVE); PHENCYCLIDINE, UR NEGATIVE (NEGATIVE)
[2017-08-26 14:10] LABS: ALB/GLOB RATIO 1.2 (1.0-2.1); ALBUMIN 4.6 g/dL (3.5-5.0); ALT/SGPT 21 U/L (21-72); AST/SGOT 21 U/L (17-59); BLOOD UREA NITROGEN 7 mg/dL (9-20); CALCIUM 9.3 mg/dl (8.6-10.4); GFR AFRICAN-AMERICAN > 60; GFR NON-AFRICAN AMERICAN > 60
[2017-08-26 14:13] LABS: ACETAMINOPHEN < 10.0 ug/mL (10.0-30.0); SALICYLATE < 1.0 mg/dL 1
--- NOTE | 2017-08-26 14:16 | C.PDOC ---
Time Seen by Provider: 08/26/17 13:17 Chief Complaint (Nursing): Psychiatric Evaluation History Per: Patient Onset/Duration Of Symptoms: Days Current Symptoms Are (Timing): Still Present Suicide/Self Injury Attempted (Context): None Modifying Factor(s): None Severity: Moderate Associated Symptoms: Depression Additional History Per: Prior Records Past Medical History Reviewed: Historical Data, Nursing Documentation, Vital Signs Vital Signs: Last Vital Signs Temp 98.8 F 08/26/17 12:45 Pulse 99 H 08/26/17 12:45 Resp 16 08/26/17 12:45 BP 156/95 H 08/26/17 12:45 Pulse Ox 96 08/26/17 14:16 - Medical History PMH: Anemia, Anxiety, Arthritis, Benign Prostatic Hyperplasia, Bipolar Disorder , Depression, Diverticulitis, Gastritis, HTN, Post Traumatic Stress Disorder, Seizures Surgical History: Cholecystectomy - [facility] Procedures ALCOHOL DETOXIFICATION (04/14/14) DETOXIFICATION SERVICES FOR SUBSTANCE ABUSE TREATMENT (11/10/16) GROUP INSTRUCTOR BRIDGE FOR SUBSTANCE ABUSE TREATMENT, PSYCHOEDUCATION (08/20/16) GROUP PSYCHOTHERAPY (02/08/17) INDIV PSYCHOTHERAPY FOR SUBSTANCE ABUSE TREATMENT, SUPPORT (09/05/16) INDIV PSYCHOTHERAPY FOR SUBSTANCE ABUSE, COGNITIV BEHAVIORAL (09/05/16) INDIV PSYCHOTHERAPY FOR SUBSTANCE ABUSE, PSYCHOEDUCATION (09/05/16) INDIVIDUAL PSYCHOTHERAPY, COGNITIVE-BEHAVIORAL (02/08/17) INDIVIDUAL PSYCHOTHERAPY, SUPPORTIVE (02/08/17) MEDICATION MANAGEMENT (08/20/16) Family History: States: Unknown Family Hx - Social History Hx Tobacco Use: Yes Hx Alcohol Use: No Hx Substance Use: No - Immunization History Hx Tetanus Toxoid Vaccination: No Hx Influenza Vaccination: No Hx Pneumococcal Vaccination: No Review Of Systems Except As Marked, All Systems Reviewed And Found Negative. Constitutional: Negative for: Fever, Weakness Cardiovascular: Negative for: Chest Pain Respiratory: Negative for: Shortness of Breath Gastrointestinal: Negative for: Vomiting, Abdominal Pain Musculoskeletal: Negative for: Neck Pain Skin: Negative for: Rash Neurological: Negative for: Weakness, Numbness Psych: Positive for: Psychosis Physical Exam - Physical Exam Appears: Non-toxic, No Acute Distress Skin: Normal Color, Warm, Dry, No Rash Head: Atraumatic, Normacephalic Eye(s): bilateral: Normal Inspection, PERRL, EOMI Neck: Normal ROM, Supple Cardiovascular: Rhythm Regular Respiratory: Normal Breath Sounds, No Accessory Muscle Use Gastrointestinal/Abdominal: Soft, No Tenderness Back: No CVA Tenderness Extremity: Normal ROM Neurological/Psych: Oriented x3, Normal Motor, Normal Sensation ED Course And Treatment - Laboratory Results Result Diagrams: 08/26/17 13:37 08/26/17 13:37 Lab Interpretation: No Acute Changes O2 Sat by Pulse Oximetry: 96 Pulse Ox Interpretation: Normal Progress Note: Pt is medically stable for psychiatric admission. Disposition Counseled Patient/Family Regarding: Studies Performed, Diagnosis, Smoking Cessation - Disposition Disposition: HOSPITALIZED Disposition Time: 15:02 Condition: STABLE - Clinical Impression Clinical Impression: Bipolar disorder Decision To Admit - Pt Status Changed To: Hospital Disposition Of: Inpatient - Admit Certification Admit to Inpatient:: After my assessment, the patient will require hospitalization for at least two midnights. This is because of the severity of symptoms shown, intensity of services needed, and/or the medical risk in this patient being treated as an outpatient. - InPatient: Physician Admission Certification: I certify that this patient requires 2 or more midnights of care for the following reason:: Psych. - . Bed Request Type: Psychiatry Admitting Physician: Ana Roper Patient Diagnosis: Bipolar disorder
--- NOTE | 2017-08-26 15:40 | PCM.BM ---
<Ewa Gonzalez - Last Filed: 08/26/17 15:38> Treatment Plan Problems - Problems identified on initial assessmt Depression Date Initiated: 08/26/17 Time Initiated: 15:38 Assessment reference: NA Status: Active Suicidal Ideation Date Initiated: 08/26/17 Time Initiated: 15:39 Assessment reference: NA Status: Active Treatment assets and liabiliti Patient Assests: adapts well, cooperative, insightful, resourceful, self-reliant , ADL independent, good support system, negotiates basic needs, cognitively intact ( ) Patient Liabilities: live alone (boarding home ), financial problems, medical problems (HTN, seizures, anemia. athritis) - Milieu Protocol Maintain good personal hygiene: daily Encourage regular showers, daily Remind patient to perform daily oral care, daily Assist patient to perform ADL's (self) Conduct patient checks and document Observation sheet: Q15 minutes (safety) Maintain personal safety: every shift Educate patient to report safety concerns to staff, every shift Monitor environment for contraband/sharps Medication safety: Monitor for expected outcome, potential side effects: every shift, Assess barriers to learning: every shift, Assess readiness for medication education: every shift <Denisse Garrison - Last Filed: 08/27/17 17:02> Family Contact Family involvement: Patient does not wish Family/SO involvement Family contact: Patient declines to allow family contact at present - Goals for Treatment Patient goals for treatment: "I want to return to [facility] outpatient program." Discharge/Continuing Care - Education Needs Education Needs: Patient Medication, Patient Diagnosis/Disease Process, Patient Coping Skills - Discharge Discharge Criteria: Free of Suicidal thoughts, Ability to care for self, Reduction of target symptoms Discharge to:: Home - Treatment Team Participation Discussed with Family/SO: No Was Patient/Family/SO present at Treatment Team Meeting: Yes <Ana Roper - Last Filed: 08/27/17 21:51> - Diagnosis (1) Bipolar disorder Status: Acute Interventions: 08/27/17 21:51 * Assess/adjust medications daily and /or as needed * See patient on an individual basis 7x/week to assess level of manic behaviors and stability * Discuss risks, benefits, side effects and alternatives of medications * (2) Alcohol use disorder, severe, dependence Status: Acute Interventions: 08/27/17 21:51 * * Educate regarding risks, benefits, side effects and alternatives of medications * Use Motivational Interviewing for abstinence * Use CBT for relapse prevention * Encourage medication assisted treatment *
[2017-08-27] MEDS: Multiple Vitamins Tab PO SCH (10:16)
--- NOTE | 2017-08-27 14:26 | PCM.PSYCH ---
Initial Psychiatric Evaluation - Initial Psychiatric Evaluation Type of Admission: Voluntary Legal Status: Capacity Chief Complaint (in patient's own words): "I am hearing voices" History of Present Illness and Precipitating Events: Patient is a 52 year old male who presents to the ED with feelings of depression and auditory hallucinations. Patient cannot make out what the voices are saying. Patient denies suicidal ideations or homicidal ideations. Patient is in remission from alcohol dependence. He explains ever since he stopped drinking he would sometimes hear voices and now they have become prominent. Patient is currently going to [facility]. Patient is single with no children and is living alone. Patient states he started feeling depressed to due to recent diagnosis of gout, BPH and obstructive sleep apnea. He feels like ever since then he has changed emotionally and physically, reporting poor sleep, interests, concentration, energy, and some psychomotor agitation. Medical Hx: Osteoarthritis, Gout, Obstructive Sleep Apnea, BPH Surgical Hx: Denies Family Hx: All 3 of his sisters had alcohol or drug use Psych Hx: He had treatment for about 10 years at [facility] [place] [place]. He says he was hospitalized one time in 2007 after a meltdown and also several admission at [facility] for detox and psychiatry. Allergies: No Known Allergies Current Medications: Active Medications Generic Name Dose Route Start Last Admin Trade Name Freq PRN Reason Stop Dose Admin Amlodipine Besylate 5 mg 08/27/17 10:00 08/27/17 10:11 Norvasc PO 5 mg DAILY MARI Administration Colchicine 0.6 mg 08/27/17 14:00 Colocrys PO TID MARI Escitalopram Oxalate 20 mg 08/27/17 11:45 08/27/17 13:19 Lexapro PO 20 mg DAILY MARI Administration Famotidine 20 mg 08/26/17 18:00 08/27/17 10:11 Pepcid PO 20 mg BID MARI Administration Gabapentin 600 mg 08/26/17 18:00 08/27/17 10:11 Neurontin PO 600 mg TID MARI Administration Hydroxyzine HCl 25 mg 08/26/17 16:39 Atarax PO Q4H PRN Anxiety Ibuprofen 600 mg 08/26/17 16:39 Motrin Tab PO Q6H PRN Pain, moderate (4-7) Indomethacin 25 mg 08/26/17 18:00 08/27/17 10:11 Indocin PO 25 mg TID MARI Administration Multivitamins 1 tab 08/27/17 10:00 08/27/17 10:16 Hexavitamin PO 1 tab DAILY MARI Administration Pneumococcal Polyvalent Vaccine 0.5 ml 08/29/17 10:00 Pneumovax 23 Vaccine IM 08/29/17 10:01 .ONCE ONE Quetiapine Fumarate 400 mg 08/26/17 18:00 08/27/17 10:16 Seroquel PO 400 mg BID MARI Administration Tamsulosin HCl 0.4 mg 08/27/17 12:00 08/27/17 13:18 Flomax PO 0.4 mg DAILY MARI Administration Trazodone HCl 200 mg 08/26/17 22:00 08/26/17 22:05 Desyrel PO 200 mg HS MARI Administration Past Psychiatric History - Past Psychiatric History Previous Treatment History: None Pertinent Medical Hx (Current Medical&Sleep Prob, Allergies): Allergies Allergy/AdvReac Type Severity Reaction Status Date / Time No Known Allergies Allergy Verified 08/26/17 12:45 Ergocalciferol (Vitamin D2) [Vitamin D2] 50,000 unit PO QD7 02/07/17 Gabapentin [Neurontin] 600 mg PO TID 02/07/17 Multivitamin [Multi-Vitamin Daily] 1 tab PO DAILY 02/07/17 QUEtiapine [SEROquel] 400 mg PO BID 02/07/17 traZODone [Desyrel] 200 mg PO HS 02/07/17 amLODIPine [Norvasc] 5 mg PO DAILY #30 tab 02/11/17 Bupropion HCl [Wellbutrin Sr] 100 mg PO DAILY 07/18/17 Naproxen [Naprosyn] 1 tab PO BID PRN #20 tab 07/18/17 Colchicine 0.6 mg PO TID #6 tablet 07/23/17 Famotidine [Pepcid] 20 mg PO BID #20 tab 07/23/17 Indomethacin [Indocin] 25 mg PO TID #21 cap 07/23/17 oxyCODONE/Acetaminophen [Percocet 5/325 mg Tab] 1 tab PO QID PRN #10 tab Review of Systems - Review of Systems All systems: reviewed and no additional remarkable complaints except - Neurological Neurological: UNREMARKABLE - Psychiatric Psychiatric: Anhedonia, Anxiety, Auditory Hallucinations, Depression, Irritability. absent: Hopelessness, Memory Loss, Suicidal Ideation, Visual Hallucinations, Tactile Hallucinations Mental Status Examination - Personal Presentation Personal Presentation: Looks stated age - Affect Affect: Constricted - Motor Activity Motor Activity: Calm - Reliability in Providing Information Reliability in Providing Information: Good - Speech Speech: Organized - Mood Mood: Depressed, Anxious - Formal Thought Process Formal Thought Process: No Impairment - Hallucinations/Delusions Hallucinations: Auditory - Obsessions/Compulsions Obsessions: No Compulsions: No - Cognitive Functions Orientation: Person, Place, Time Sensorium: Alert Attention/Concentration: Attentive Abstract Thinking: [place] Estimate of Intelligence: Average Judgement: Intact, as evidence by: Good judgement Memory: Recent intact, as evidence by: Ability to recall events of the day - Limitations Limitations: Living alone DSM 5 DX - DSM 5 DSM 5 Diagnosis: Bipolar 1 d/o, depressed, severe r/o MDD Alcohol Use Disorder, Severe, early Remission - Recommended/Plan of Treatment Treatment Recommendations and Plan of Treatment: Start Lexapro Continue seroquel, even though it ishigh dose - he wants to resume Attend groups and activities Individual therapy Psychoeducation and support Encourage compliance with meds and after care Refer to outpatient program Teach healthy lifestyle methods, i.e. diet, exercise, meditation 32 min Projected ELOS: 7 days Prognosis: good w treatment - Smoking Cessation Smoking Cessation Initiated: Yes
[2017-08-28] MEDS: Multiple Vitamins Tab PO SCH (09:54)
--- NOTE | 2017-08-28 12:17 | PCM.PYCHPN ---
Psychiatric Progress Note - Psychiatric Progress Note Patient seen today, length of contact: 15 min Patient Chief Complaint: "I am so so" Problems Identified/Issues Discussed: The pt is seen, chart reviewed, case discussed with staff. The pt is compliant with medications and reports no side-effects. Symptoms are improving but needs more time to stabilize. After care discussed, support and psychoeducation given. Medication Change: Yes (detox changes daily) Medical Record Reviewed: Yes Mental Status Examination - Cognitive Function Orientation: Person, Place, Time Memory: Intact Attention: Poor Concentration: Poor Association: WNL Fund of Knowledge: WNL - Mood Mood: Depressed, Anxious - Affect Affect: Constricted - Speech Speech: Appropriate - Formal Thought Process Formal Thought Process: No Impairment - Suicidal Ideation Suicidal Ideation: No - Homicidal Ideation Homicidal Ideation: No Goal/Treatment Plan - Goal/Treatment Plan Need for Continued Stay: Discharge may exacerbated symptoms, Severe functional impairment Progress Toward Problem(s) and Goals/Treatment Plan: Lexapro for depression Continue seroquel, even though it ishigh dose - he wants to resume Attend groups and activities Individual therapy Psychoeducation and support Encourage compliance with meds and after care Refer to outpatient program Teach healthy lifestyle methods, i.e. diet, exercise, meditation Estimated Date of D/C: 09/01/17
[2017-08-29] MEDS: Multiple Vitamins Tab PO SCH (09:39)
[2017-08-29] MEDS ORDERED: Pneumococcal 23-Valent Vaccine IM ONE (10:00)
[2017-08-30 06:48] VITALS: O2SAT 100
[2017-08-30] MEDS: Multiple Vitamins Tab PO SCH (09:49)
--- NOTE | 2017-08-31 07:56 | PCM.PYCHPN ---
Psychiatric Progress Note - Psychiatric Progress Note Patient seen today, length of contact: 15 min Patient Chief Complaint: "I couldn't sleep" Problems Identified/Issues Discussed: The pt is seen, chart reviewed, case discussed with staff. The pt is compliant with medications and reports no side-effects. Thorazine 50 added for sleep and he also said he was still hearing voices at night Symptoms are improving but needs more time to stabilize. He is calm but still depressed and has AH After care discussed, support and psychoeducation given. Medication Change: Yes (add Thorazine) Medical Record Reviewed: Yes Mental Status Examination - Cognitive Function Orientation: Person, Place, Time Memory: Intact Attention: Poor Concentration: Poor Association: WNL Fund of Knowledge: WNL - Mood Mood: Depressed, Anxious - Affect Affect: Constricted - Speech Speech: Appropriate - Formal Thought Process Formal Thought Process: Hallucinations - Suicidal Ideation Suicidal Ideation: No - Homicidal Ideation Homicidal Ideation: No Goal/Treatment Plan - Goal/Treatment Plan Need for Continued Stay: Discharge may exacerbated symptoms, Severe functional impairment Progress Toward Problem(s) and Goals/Treatment Plan: Lexapro for depression Continue seroquel, but add 50 mgthorazine Seizure risk discussed Attend groups and activities Individual therapy Psychoeducation and support Encourage compliance with meds and after care Refer to outpatient program Teach healthy lifestyle methods, i.e. diet, exercise, meditation Estimated Date of D/C: 09/02/17 If changed, why: not well yet
--- NOTE | 2017-08-31 07:56 | PCM.PYCHPN ---
Psychiatric Progress Note - Psychiatric Progress Note Patient seen today, length of contact: 15 min Patient Chief Complaint: "I am not well" Problems Identified/Issues Discussed: The pt is seen, chart reviewed, case discussed with staff. Support and psychoeducation given, CBT and AL used briefly No new symptoms reported, improving slowly and needs more time No SEs from medications, risks discussed. After care discussed Medication Change: Yes (detox changes daily) Medical Record Reviewed: Yes Mental Status Examination - Cognitive Function Orientation: Person, Place, Time Memory: Intact Attention: Poor Concentration: Poor Association: WNL Fund of Knowledge: WNL - Mood Mood: Depressed, Anxious - Affect Affect: Constricted - Speech Speech: Appropriate - Formal Thought Process Formal Thought Process: No Impairment - Suicidal Ideation Suicidal Ideation: No - Homicidal Ideation Homicidal Ideation: No Goal/Treatment Plan - Goal/Treatment Plan Need for Continued Stay: Discharge may exacerbated symptoms, Severe functional impairment Progress Toward Problem(s) and Goals/Treatment Plan: Lexapro for depression Continue seroquel, even though it is high dose - he wants to resume Attend groups and activities Individual therapy Psychoeducation and support Encourage compliance with meds and after care Refer to outpatient program Teach healthy lifestyle methods, i.e. diet, exercise, meditation Estimated Date of D/C: 09/01/17
[2017-08-31] MEDS: Multiple Vitamins Tab PO SCH (09:39)
--- NOTE | 2017-08-31 11:47 | PCM.PYCHPN ---
Psychiatric Progress Note - Psychiatric Progress Note Patient seen today, length of contact: 15 min Patient Chief Complaint: "I slept better" Problems Identified/Issues Discussed: The pt is seen, chart reviewed, case discussed with staff. Support given, CBT and AR used briefly No new symptoms reported, improving slowly and needs more time No SEs from medications, risks discussed. After care discussed Medication Change: No Medical Record Reviewed: Yes Mental Status Examination - Cognitive Function Orientation: Person, Place, Time Memory: Intact Attention: Poor Concentration: Poor Association: WNL Fund of Knowledge: WNL - Mood Mood: Depressed, Anxious - Affect Affect: Constricted - Speech Speech: Appropriate - Formal Thought Process Formal Thought Process: Hallucinations - Suicidal Ideation Suicidal Ideation: No - Homicidal Ideation Homicidal Ideation: No Goal/Treatment Plan - Goal/Treatment Plan Need for Continued Stay: Discharge may exacerbated symptoms, Severe functional impairment Progress Toward Problem(s) and Goals/Treatment Plan: Lexapro for depression Continue seroquel, but add 50 mgthorazine Seizure risk discussed Attend groups and activities Individual therapy Psychoeducation and support Encourage compliance with meds and after care Refer to outpatient program Teach healthy lifestyle methods, i.e. diet, exercise, meditation Estimated Date of D/C: 09/02/17
[2017-09-01 06:44] VITALS: RESP 20
[2017-09-01] MEDS: Multiple Vitamins Tab PO SCH (09:17)
--- NOTE | 2017-09-01 15:28 | PCM.BM ---
<Denisse Garrison - Last Filed: 09/01/17 15:28> Treatment Plan Problems - Problems identified on initial assessmt Depression Date Initiated: 08/26/17 Time Initiated: 15:38 Assessment reference: NA Status: Active Suicidal Ideation Date Initiated: 08/26/17 Time Initiated: 15:39 Assessment reference: NA Status: Active Treatment assets and liabiliti Patient Assests: adapts well, cooperative, insightful, resourceful, self-reliant , ADL independent, good support system, negotiates basic needs, cognitively intact ( ) Patient Liabilities: live alone (boarding home ), financial problems, medical problems (HTN, seizures, anemia. athritis) - Milieu Protocol Maintain good personal hygiene: daily Encourage regular showers, daily Remind patient to perform daily oral care, daily Assist patient to perform ADL's (self) Conduct patient checks and document Observation sheet: Q15 minutes (safety) Maintain personal safety: every shift Educate patient to report safety concerns to staff, every shift Monitor environment for contraband/sharps Medication safety: Monitor for expected outcome, potential side effects: every shift, Assess barriers to learning: every shift, Assess readiness for medication education: every shift Milieu Narrative: Lexapro for depression Continue seroquel, but add 50 mgthorazine Seizure risk discussed Attend groups and activities Individual therapy Psychoeducation and support Encourage compliance with meds and after care Refer to outpatient program Teach healthy lifestyle methods, i.e. diet, exercise, meditation Family Contact Family involvement: Patient does not wish Family/SO involvement Family contact: Patient declines to allow family contact at present - Goals for Treatment Patient goals for treatment: "I want to return to [facility] outpatient program." Discharge/Continuing Care - Education Needs Education Needs: Patient Medication, Patient Diagnosis/Disease Process, Patient Coping Skills - Discharge Discharge Criteria: Free of Suicidal thoughts, Ability to care for self, Reduction of target symptoms Discharge to:: Home - Treatment Team Participation Patient/Family/SO Statement: Lexapro for depression Continue seroquel, but add 50 mgthorazine Seizure risk discussed Attend groups and activities Individual therapy Psychoeducation and support Encourage compliance with meds and after care Refer to outpatient program Teach healthy lifestyle methods, i.e. diet, exercise, meditation Discussed with Family/SO: No Was Patient/Family/SO present at Treatment Team Meeting: Yes Treatment Plan Review - Problem Depression Time Initiated: 15:38 Suicidal Ideation Time Initiated: 15:39 - Discharge / Continuing Care Discharge to:: Home Behavioral Health Services: Intensive Outpatient Health Needs: Follow up care/test, Medications/Rx <Ana Roper - Last Filed: 09/01/17 22:41> - Diagnosis (1) Bipolar disorder Status: Acute Interventions: 09/01/17 22:41 * Assess/adjust medications daily and /or as needed * See patient on an individual basis 7x/week to assess level of manic behaviors and stability * Discuss risks, benefits, side effects and alternatives of medications * (2) Alcohol use disorder, severe, dependence Status: Acute Interventions: 09/01/17 22:41 * Educate regarding risks, benefits, side effects and alternatives of medications * Use Motivational Interviewing for abstinence * Use CBT for relapse prevention * Encourage medication assisted treatment *
--- NOTE | 2017-09-01 22:45 | PCM.PYCHPN ---
Psychiatric Progress Note - Psychiatric Progress Note Patient seen today, length of contact: 16 min Patient Chief Complaint: "I am getting better" Problems Identified/Issues Discussed: The pt is seen, chart reviewed, case discussed with staff. Support given, CBT and DC used briefly again. No new symptoms reported, improving slowly and needs more time Sometimes hears voices and is anxious No SEs from medications, risks discussed. After care discussed - will return to [facility] Medication Change: No Medical Record Reviewed: Yes Mental Status Examination - Cognitive Function Orientation: Person, Place, Time Memory: Intact Attention: Poor Concentration: Poor Association: WNL Fund of Knowledge: WNL - Mood Mood: Depressed, Anxious - Affect Affect: Constricted - Speech Speech: Appropriate - Formal Thought Process Formal Thought Process: Hallucinations - Suicidal Ideation Suicidal Ideation: No - Homicidal Ideation Homicidal Ideation: No Goal/Treatment Plan - Goal/Treatment Plan Need for Continued Stay: Discharge may exacerbated symptoms, Severe functional impairment Progress Toward Problem(s) and Goals/Treatment Plan: Lexapro for depression Continue seroquel, but add 50 mgthorazine Seizure risk discussed Attend groups and activities Individual therapy Psychoeducation and support Encourage compliance with meds and after care Refer to outpatient program Teach healthy lifestyle methods, i.e. diet, exercise, meditation Estimated Date of D/C: 09/03/17 If changed, why: Hearing voices
[2017-09-02] MEDS: Multiple Vitamins Tab PO SCH (09:08)
--- NOTE | 2017-09-02 12:16 | PCM.PYCHPN ---
Psychiatric Progress Note - Psychiatric Progress Note Patient seen today, length of contact: 16 min Patient Chief Complaint: "I am anxious" Problems Identified/Issues Discussed: The pt is seen, chart reviewed, case discussed with staff. Support and psychoeducation given, CBT and MO used briefly No new symptoms reported, improving slowly and needs more time No SEs from medications, risks discussed. After care discussed - IOP Anxiety mgt discussed Medication Change: No Medical Record Reviewed: Yes Mental Status Examination - Cognitive Function Orientation: Person, Place, Time Memory: Intact Attention: Poor Concentration: Poor Association: WNL Fund of Knowledge: WNL - Mood Mood: Depressed, Anxious - Affect Affect: Constricted - Speech Speech: Appropriate - Formal Thought Process Formal Thought Process: Hallucinations - Suicidal Ideation Suicidal Ideation: No - Homicidal Ideation Homicidal Ideation: No Goal/Treatment Plan - Goal/Treatment Plan Need for Continued Stay: Discharge may exacerbated symptoms, Severe functional impairment Progress Toward Problem(s) and Goals/Treatment Plan: Lexapro for depression Continue seroquel, but add 50 mgthorazine Seizure risk discussed Attend groups and activities Individual therapy Psychoeducation and support Encourage compliance with meds and after care Refer to outpatient program Teach healthy lifestyle methods, i.e. diet, exercise, meditation Estimated Date of D/C: 09/03/17
[2017-09-03 06:24] VITALS: BP 118/77; PULSE 92; TEMP 98.9
[2017-09-03] MEDS: Multiple Vitamins Tab PO SCH (09:01)
--- NOTE | 2017-09-03 10:06 | PCM.PYCHDC ---
Mental Status Examination - Mental Status Examination Orientation: Person, Place, Situation, Time Memory: Intact Mood: Anxious Affect: Constricted Speech: Appropriate Attention: WNL Concentration: WNL Association: WNL Fund of Knowledge: WNL Formal Thought Process: No Impairment Suicidal Ideation: No Current Homicidal Ideation?: No Discharge Summary - Discharge Note Reason for Hospitalization: Depression, fred. ideation Consultations:: List each consultation separately and include: 1. Reason for request. 2. Findings. 3. Follow-up Summary of Hospital Course include:: 1. Description of specific treatment plan utilized for patients during their course of treatmen. 2. Summarize the time- course for resolution of acute symptoms and/or regressed behaviors. 3. Describe issues identified and worked on during hospitalization. 4. Describe medication utilized. 5. Describe medical problems identified and treated. 6. Reassessment of suicide risk Summary of Hospital Course: Seen today, case discussed, chart reviewed. On admission: Patient is a 52 year old male who presents to the ED with feelings of depression and auditory hallucinations. Patient cannot make out what the voices are saying. Patient denies suicidal ideations or homicidal ideations. Patient is in remission from alcohol dependence. He explains ever since he stopped drinking he would sometimes hear voices and now they have become prominent. Patient is currently going to [facility]. Patient is single with no children and is living alone. Patient states he started feeling depressed to due to recent diagnosis of gout, BPH and obstructive sleep apnea. He feels like ever since then he has changed emotionally and physically, reporting poor sleep, interests, concentration, energy, and some psychomotor agitation. Medical Hx: Osteoarthritis, Gout, Obstructive Sleep Apnea, BPH Surgical Hx: Denies Family Hx: All 3 of his sisters had alcohol or drug use Psych Hx: He had treatment for about 10 years at [facility]. He says he was hospitalized one time in 2007 after a meltdown and also several admission at [facility] for detox and psychiatry. Allergies: No Known Allergies Hospital course: The pt was admitted and started on treatment with psychotherapy, support, psychoeducation and medications. NV and CBT used. The pt attended groups and activities, as well as milieu therapy. All the risks and benefits of medications are discussed and the patient understood and agreed. The pt improved with the treatments provided. After care discussed with the patient. He will attend [facility]. - Final Diagnosis (DSM 5) Condition upon Discharge: STABLE DSM 5: Bipolar 1 d/o, depressed, severe Alcohol Use Disorder, Severe, early Remission Disposition: HOME/ ROUTINE Follow-up Treatment Plan: Continue below medications after discharge. Follow after care plan as discussed. Use relapse prevention skills Return to ER or call 911 if suicidal, homicidal or symptoms relapse. Stay away from stress, alcohol and drugs. See primary doctor regularly and get labs. Prescriptions/Medication Reconciliation: amLODIPine [Norvasc] 5 mg PO DAILY #30 tab Escitalopram [Lexapro] 20 mg PO DAILY #30 tab Famotidine [Pepcid] 20 mg PO BID #60 tab Gabapentin [Neurontin] 600 mg PO TID #90 tab QUEtiapine [SEROquel] 400 mg PO BID #120 tab Tamsulosin [Flomax] 0.4 mg PO DAILY #30 cap traZODone [Desyrel] 200 mg PO HS #60 tab - Smoking Cessation Smoking Cessation Medication prescribed: No - Antipsychotic Medications Pt discharged on 2 or more routine antipsychotic medications: No
== END 2017-09-03 10:31 | disposition home or self-care (01) | DRG 430 ==
LOC: C.ER 12:24 → C.9E 15:03 → C.5E 15:31
PROVIDERS: ADMIT Psychiatry & Neurology Psychiatry; ATTEND Psychiatry & Neurology Psychiatry
PROC: GZHZZZZ Group Psychotherapy (ICD-10-PCS; principal; 2017-08-26)
PROC: GZ58ZZZ Individual Psychotherapy, Cognitive-Behavioral (ICD-10-PCS; 2017-08-26)
PROC: GZ56ZZZ Individual Psychotherapy, Supportive (ICD-10-PCS; 2017-08-26)
DX: F31.4 Bipolar disorder, current episode depressed, severe, without psychotic features (principal); R56.9 Unspecified convulsions; F43.10 Post-traumatic stress disorder, unspecified; F10.20 Alcohol dependence, uncomplicated; G47.33 Obstructive sleep apnea (adult) (pediatric); I10 Essential (primary) hypertension; N40.0 Benign prostatic hyperplasia without lower urinary tract symptoms; Z87.891 Personal history of nicotine dependence; M10.9 Gout, unspecified

== ENCOUNTER 2017-09-13 10:38 | Inpatient (IN) | payer MEDICAID ==
[2017-09-13 10:38] VITALS: BMI 30.9
[2017-09-13 11:30] LABS: BASO # 0.1 K/uL (0.0-0.2); EOS # 0.2 K/uL (0.0-0.7); EOS % 2.8 % (0.0-4.0); HEMOGLOBIN 12.3 g/dL (12.0-18.0); LYMPH # 1.3 K/uL (1.0-4.3); LYMPH % 18.5 % (20.0-40.0); MEAN CORPUSCULAR HEMOGLOBIN 25.3 pg (27.0-31.0); MEAN PLATELET VOLUME 8.4 fL (7.2-11.7); MONO # 0.6 K/uL (0.0-0.8); MONO % 8.3 % (0.0-10.0); NEUT # 4.8 K/uL (1.8-7.0); NEUT % 69.4 % (50.0-75.0); NRBC % 0.1 % (0.0-2.0); RBC 4.85 Mil/uL (4.40-5.90); RED CELL DISTRIBUTION WIDTH 13.6 % (11.5-14.5); WHITE BLOOD COUNT 6.9 K/uL (4.8-10.8)
[2017-09-13 11:37] LABS: SQUAMOUS EPITHIAL 1 /hpf (0-5); URINE BILIRUBIN NEGATIVE (NEGATIVE); URINE BLOOD NEGATIVE (NEGATIVE); URINE CLARITY Clear (Clear); URINE COLOR Yellow (YELLOW); URINE GLUCOSE (UA) NORMAL (Normal); URINE LEUKOCYTE ESTERASE NEG Leu/uL (Negative); URINE PROTEIN NEGATIVE (NEGATIVE); URINE UROBILINOGEN NORMAL mg/dL (0.2-1.0)
--- NOTE | 2017-09-13 11:45 | C.PDOC ---
History Of Present Illness 52 year old male with PMHx of HTN, OA, gout, BPH, sleep apnea, hx of bipolar, who presents to the ED with feelings of depression and auditory hallucinations. Patient cannot make out what the voices are saying. Patient denies suicidal ideations or homicidal ideations. Pt admits, was seen here due to same complaints 1 week ago, admitted " but I dont feel any better, still feel the same". Pt denies change in medication, denies any active physical complaints. Ambulate to Ed for evaluation, not in any apparent distress. Time Seen by Provider: 09/13/17 10:46 Chief Complaint (Nursing): Psychiatric Evaluation History Per: Patient Past Medical History Reviewed: Historical Data, Nursing Documentation, Vital Signs Vital Signs: Last Vital Signs Temp 97.7 F 09/13/17 13:11 Pulse 87 09/13/17 13:11 Resp 20 09/13/17 13:11 BP 117/77 09/13/17 13:11 Pulse Ox 97 09/13/17 13:11 - Medical History PMH: Anemia, Anxiety, Arthritis, Benign Prostatic Hyperplasia, Bipolar Disorder , Depression, Diverticulitis, Gastritis, HTN, Post Traumatic Stress Disorder, Seizures Denies: Diabetes, Hepatitis, HIV, Chronic Kidney Disease, Sexually Transmitted Disease Surgical History: Cholecystectomy - [facility] ALCOHOL DETOXIFICATION (04/14/14) DETOXIFICATION SERVICES FOR SUBSTANCE ABUSE TREATMENT (11/10/16) GROUP WHEEL ADJUSTER FOR SUBSTANCE ABUSE TREATMENT, PSYCHOEDUCATION (08/20/16) GROUP PSYCHOTHERAPY (08/26/17) INDIV PSYCHOTHERAPY FOR SUBSTANCE ABUSE TREATMENT, SUPPORT (09/05/16) INDIV PSYCHOTHERAPY FOR SUBSTANCE ABUSE, COGNITIV BEHAVIORAL (09/05/16) INDIV PSYCHOTHERAPY FOR SUBSTANCE ABUSE, PSYCHOEDUCATION (09/05/16) INDIVIDUAL PSYCHOTHERAPY, COGNITIVE-BEHAVIORAL (08/26/17) INDIVIDUAL PSYCHOTHERAPY, SUPPORTIVE (08/26/17) MEDICATION MANAGEMENT (08/20/16) Family History: States: Unknown Family Hx - Social History Hx Tobacco Use: Yes Hx Alcohol Use: Yes (PAST HISTORY) Hx Substance Use: Yes - Immunization History Hx Tetanus Toxoid Vaccination: No Hx Influenza Vaccination: No Hx Pneumococcal Vaccination: No Review Of Systems Except As Marked, All Systems Reviewed And Found Negative. Constitutional: Negative for: Fever, Chills ENT: Negative for: Throat Pain Cardiovascular: Negative for: Chest Pain, Palpitations Respiratory: Negative for: Cough, Shortness of Breath, Hemoptysis Gastrointestinal: Negative for: Nausea, Vomiting, Abdominal Pain, Diarrhea Genitourinary: Negative for: Dysuria, Incontinence Musculoskeletal: Negative for: Neck Pain, Back Pain Neurological: Negative for: Weakness, Numbness, Altered Mental Status, Headache , Dizziness Psych: Positive for: Depression, Psychosis Physical Exam - Physical Exam Appears: Well, Non-toxic, No Acute Distress Skin: Normal Color, Warm, Dry, No Rash Head: Normacephalic Eye(s): bilateral: PERRL Nose: No Flaring, No Discharge Oral Mucosa: Moist Tongue: Normal Appearing Lips: Normal Appearing Throat: No Erythema, No Drooling Neck: Trachea Midline, Supple Cardiovascular: Rhythm Regular, No Murmur, No JVD Respiratory: No Decreased Breath Sounds, No Accessory Muscle Use, No Stridor, No Wheezing Gastrointestinal/Abdominal: Soft, No Tenderness, No Distention, No Guarding Back: No CVA Tenderness Extremity: Normal ROM, No Deformity, No Swelling Neurological/Psych: Oriented x3, Normal Speech ED Course And Treatment - Laboratory Results Result Diagrams: 09/13/17 11:23 09/13/17 11:23 Lab Interpretation: Normal ECG: Interpreted By Me, Viewed By Me ECG Rhythm: Sinus Rhythm Interpretation Of ECG: SR@92/min, LAD, prolong QT, no acute T wave or ST-T changes. O2 Sat by Pulse Oximetry: 97 Pulse Ox Interpretation: Normal Progress Note: At 12:02, bloo dwork review, UA, UDS review- appears normal, no acute changes. Pt is medically clreared for PES evaluation. After pt was evaluated by PES and case discussed with , pt was personally evaluated by , admission to psych floor arranged with Dx: Bipolar ds, maniac. On re-eval, pt remained stable, appropriate, not in any apparent distress. AGrees with plan. Disposition - Disposition Disposition: HOSPITALIZED Disposition Time: 13:10 Condition: STABLE Forms: [facility] (Dominican) - Clinical Impression Clinical Impression: Manic bipolar I disorder
[2017-09-13 11:47] LABS: BARBITURATES, UR NEGATIVE (NEGATIVE); BENZODIAZEPINES, UR NEGATIVE (NEGATIVE); OPIATES, UR NEGATIVE (NEGATIVE); PHENCYCLIDINE, UR NEGATIVE (NEGATIVE)
[2017-09-13 11:51] LABS: ALBUMIN 4.5 g/dL (3.5-5.0); BLOOD UREA NITROGEN 10 mg/dL (9-20); CALCIUM 9.1 mg/dl (8.6-10.4); GFR AFRICAN-AMERICAN > 60; GFR NON-AFRICAN AMERICAN > 60
[2017-09-13 11:52] LABS: ALB/GLOB RATIO 1.3 (1.0-2.1); ALT/SGPT 32 U/L (21-72); AST/SGOT 40 U/L (17-59)
[2017-09-13] MEDS: Multiple Vitamins Tab PO SCH (17:49)
--- NOTE | 2017-09-13 20:08 | PCM.BM ---
Treatment Plan Problems - Problems identified on initial assessmt Depression Date Initiated: 09/13/17 Time Initiated: 20:08 Assessment reference: NA Status: Active Treatment assets and liabiliti Patient Assests: adapts well, cooperative, insightful, motivated, resourceful, self-reliant, ADL independent, good support system, negotiates basic needs, cognitively intact ( ), good interpersonal skills Patient Liabilities: live alone, financial problems, poor support system, substance abuse
--- NOTE | 2017-09-13 20:13 | PCM.BM ---
<Susy Smith - Last Filed: 09/13/17 20:12> Treatment Plan Problems - Problems identified on initial assessmt Depression Date Initiated: 09/13/17 Time Initiated: 20:08 Assessment reference: NA Status: Active Treatment assets and liabiliti Patient Assests: adapts well, cooperative, insightful, motivated, resourceful, self-reliant, ADL independent, good support system, negotiates basic needs, cognitively intact ( ), good interpersonal skills Patient Liabilities: live alone, financial problems, poor support system, substance abuse - Milieu Protocol Maintain good personal hygiene: daily Encourage regular showers, daily Remind patient to perform daily oral care, daily Assist patient to perform ADL's Conduct patient checks and document Observation sheet: 1:1 Maintain personal safety: every shift Educate patient to report safety concerns to staff, every shift Monitor environment for contraband/sharps Medication safety: Monitor for expected outcome, potential side effects: every shift, Assess barriers to learning: every shift, Assess readiness for medication education: every shift <Jocelyn Rooney - Last Filed: 09/15/17 13:39> Family Contact Family involvement: Famliy/SO not involved - Goals for Treatment Patient goals for treatment: "I need my meds." Discharge/Continuing Care - Education Needs Education Needs: Patient Medication, Patient Coping Skills - Discharge Discharge Criteria: Tolerates medication w/o severe side effects, Reduction of target symptoms Discharge to:: Custodial - Treatment Team Participation Discussed with Family/SO: No Was Patient/Family/SO present at Treatment Team Meeting: Yes <Ana Roper - Last Filed: 09/15/17 22:41> - Diagnosis (1) Alcohol use disorder, severe, dependence Status: Acute Interventions: 09/15/17 22:41 * Assess 7x/week regarding severity of withdrawal * Educate regarding risks, benefits, side effects and alternatives of medications * Use Motivational Interviewing for abstinence * Use CBT for relapse prevention * Medication management for withdrawal symptoms * Encourage medication assisted treatment * (2) Bipolar disorder Status: Acute Interventions: 09/15/17 22:41 * Assess/adjust medications daily and /or as needed * See patient on an individual basis 7x/week to assess level of manic behaviors and stability * Discuss risks, benefits, side effects and alternatives of medications *
[2017-09-14] MEDS: Multiple Vitamins Tab PO SCH (09:28)
--- NOTE | 2017-09-14 15:37 | PCM.PSYCH ---
Initial Psychiatric Evaluation - Initial Psychiatric Evaluation Type of Admission: Voluntary Legal Status: Capacity Chief Complaint (in patient's own words): "I'm depressed and have SI" History of Present Illness and Precipitating Events: Patient is a 52 year old single male with psychiatric diagnosis of Bipolar disorder and alcohol use disorder, and PMH of gout, BPH, Obstructive sleep Apnea ,, Osteoarthritis, admitted for depressed mood with S/I. Pt has multiple admissions in [facility] He was discharge from [facility] on 09/[facility]17 with a f/u at [facility] with [facility] services. Pt stated his medication was changed by [facility] and he was not able to fill his prescription. He is feeling depressed with SI with an intent to take all of his medications at once to end his life. Patient reports he has been feeling suicidal for the past 3 days, and indicated he is currently symptomatic due to not taking/having his medications. He reports poor sleep, anhedonia, difficulty in concentration, with low level of energy. He states that he needs to stay in hospital for adjustment in medication. Pt contracted hospital for safety. Patient reports auditory and visual hallucinations, in which he describes seeing people and hearing voices with commands to hurt others. Patient reported having an alcohol problem for the past 40 years, multiple admission for detox and inpatient rehab. He indicated drinking 3 pines of vodka daily and 5 24oz of beer, last use today. Patient also reported marijuana use for 40 years, smoking about 5 blunts daily. Patient reported family history of alcohol and drugs with mother and sisters. Patient reported currently living alone and having public assistance as his income. He reported seeing his [facility] regularly and having high blood pressure and arthritis. Current Medications: Active Medications Generic Name Dose Route Start Last Admin Trade Name Freq PRN Reason Stop Dose Admin Amlodipine Besylate 5 mg 09/14/17 10:00 09/14/17 09:52 Norvasc PO 5 mg DAILY MARI Administration Aripiprazole 5 mg 09/13/17 15:30 09/14/17 09:28 Abilify PO 5 mg DAILY MARI Administration Chlordiazepoxide 25 mg 09/13/17 14:50 Librium PO Q6 PRN ALCOHOL WITHDRAWAL Escitalopram Oxalate 20 mg 09/13/17 15:30 09/14/17 09:28 Lexapro PO 20 mg DAILY MARI Administration Gabapentin 600 mg 09/13/17 18:00 09/14/17 14:01 Neurontin PO 600 mg TID MARI Administration Ibuprofen 400 mg 09/13/17 14:44 Motrin Tab PO Q6 PRN Pain, moderate (4-7) Multivitamins 1 tab 09/13/17 15:00 09/14/17 09:28 Hexavitamin PO 1 tab DAILY MARI Administration Trazodone HCl 50 mg 09/13/17 22:00 Desyrel PO HS PRN Insomnia Past Psychiatric History - Past Psychiatric History Previous Treatment History: Intensive Outpatient Prior Professional Help: multiple admission Prior Psychiatric Treatment: medication management At what hospital: [facility] and [facility] Nature of Treatment: Psychopharmacological treatment Explanation of prior treatment: He had multiple admission in [facility] and [facility] History of Abuse: denied History of ETOH/Drug Use: please see HPI History of Family Illness: All his 3 siblings drinks etoh and using drugs Pertinent Medical Hx (Current Medical&Sleep Prob, Allergies): Allergies Allergy/AdvReac Type Severity Reaction Status Date / Time No Known Allergies Allergy Verified 08/26/17 12:45 Bupropion HCl [Wellbutrin Sr] 100 mg PO DAILY 07/18/17 Colchicine 0.6 mg PO TID #6 tablet 07/23/17 oxyCODONE/Acetaminophen [Percocet 5/325 mg Tab] 1 tab PO QID PRN #10 tab Escitalopram [Lexapro] 20 mg PO DAILY #30 tab 09/03/17 Famotidine [Pepcid] 20 mg PO BID #60 tab 09/03/17 Gabapentin [Neurontin] 600 mg PO TID #90 tab 09/03/17 QUEtiapine [SEROquel] 400 mg PO BID #120 tab 09/03/17 amLODIPine [Norvasc] 5 mg PO DAILY #30 tab 09/03/17 traZODone [Desyrel] 200 mg PO HS #60 tab 09/03/17 gout, BPH, Obstructive sleep Apnea,, Osteoarthritis, Review of Systems - Review of Systems All systems: reviewed and no additional remarkable complaints except (please see HPI) Mental Status Examination - Personal Presentation Personal Presentation: Looks stated age, Dressed appropriate to season - Affect Affect: Constricted - Motor Activity Motor Activity: Psychomotor Agitation - Reliability in Providing Information Reliability in Providing Information: Fair - Speech Speech: Organized, Coherent - Mood Mood: Depressed, Anxious - Formal Thought Process Formal Thought Process: Hallucinations - Hallucinations/Delusions Hallucinations: Visual, Auditory - Obsessions/Compulsions Obsessions: None Compulsions: None - Cognitive Functions Orientation: Person, Place, Situation, Time Sensorium: Alert Attention/Concentration: Attentive Abstract Thinking: Damon Estimate of Intelligence: Average Judgement: Intact, as evidence by: Good judgement, Intact, as evidence by: Insight regarding need for hospitalization Memory: Recent intact, as evidence by: Ability to recall events of the day - Risk Risk: Suicidal (with a plan to OD on pills) - Strength & Assets Inventory Strength & Assets Inventory: Intelligence, Cooperative - Limitations Limitations: Other (chronic mental illness and substance abuse) DSM 5 DX - DSM 5 DSM 5 Diagnosis: Bipolar disorder, mre depressed Alcohol use disorder Gout, HTN BPH - Recommended/Plan of Treatment Treatment Recommendations and Plan of Treatment: Admit in 5E to adjust his medication. Start Wellbutrin for depressed mood. Start Abilify for mood stabilization Monitor vitals Prn meds MV Supportive therpay provided Encourage to attend groups activities. Therapy in milieu Will plan to d/c him with PHP program f/u Psychoeducation was provided regarding his diagnosis, illicit drugs and etoh use and its deleterious side effects on physical and mental health. Monitor vitals. Time Spend 30 minutes Projected ELOS: 5-6 days Prognosis: guarded Discharge Plan and Discharge Criteria: Recommend OBDULIA program, PHP after discharge. - Smoking Cessation Smoking Cessation Initiated: Yes
[2017-09-15] MEDS: Multiple Vitamins Tab PO SCH (09:59)
--- NOTE | 2017-09-15 13:37 | PCM.PYCHPN ---
Psychiatric Progress Note - Psychiatric Progress Note Patient seen today, length of contact: 16 min Patient Chief Complaint: "I need my meds adjusted, not feeling well" Problems Identified/Issues Discussed: The pt is seen, chart reviewed, case discussed with staff. The pt is compliant with medications and reports no side-effects. Symptoms are improving but needs more time to stabilize. Meds are being switched: Abilify for seroquel and Wellbutrin for lexapro After care discussed, support and psychoeducation given. Medication Change: Yes (see HPI) Medical Record Reviewed: Yes Mental Status Examination - Cognitive Function Orientation: Person, Place, Situation, Time Memory: Intact Attention: WNL Concentration: Poor Association: WNL Fund of Knowledge: WNL - Mood Mood: Depressed, Anxious - Affect Affect: Constricted - Speech Speech: Appropriate - Formal Thought Process Formal Thought Process: No Impairment - Suicidal Ideation Suicidal Ideation: No - Homicidal Ideation Homicidal Ideation: No Goal/Treatment Plan - Goal/Treatment Plan Need for Continued Stay: Discharge may exacerbated symptoms, Severe functional impairment Progress Toward Problem(s) and Goals/Treatment Plan: Switch to Wellbutrin XL from lexapro and Abilify from seroquel As needed medications Gabapentin for augmentation if needed All risks, benefits and alternatives of medications, including no medications, discussed and the patient understood and agreed. Attend groups and activities Supportive therapy and psychoeducation KS for abstinence CBT for relapse prevention Encourage MAT Refer to rehab or IOP Attend self-help groups as well KS for smoking cessation and patch if needed Estimated Date of D/C: 09/19/17
[2017-09-15] MEDS: buPROPion 150 mg/24 Hours XL Tab PO SCH (14:36)
--- NOTE | 2017-09-15 23:31 | CARD ---
APPROVED REPORT EKG Measurement Heart [id number] <Conclusion> Normal sinus rhythm Nonspecific T wave abnormality Prolonged QT Abnormal ECG
[2017-09-16] MEDS: Multiple Vitamins Tab PO SCH (09:00)
[2017-09-16] MEDS: buPROPion 150 mg/24 Hours XL Tab PO SCH (09:00)
--- NOTE | 2017-09-16 15:29 | PCM.PYCHPN ---
Psychiatric Progress Note - Psychiatric Progress Note Patient seen today, length of contact: 15 minutes Patient Chief Complaint: I'm feeling little better. Problems Identified/Issues Discussed: Patient seen, chart reviewed, case discussed with the staff. Issues related to illness and treatment were discussed with the patient and staff. Reported compliant with treatment with no adverse affects. Tolerating treatment very well. Patient reported feeling little better. Some improvement but still needs more time for stabilization. Patient was calm and cooperative. At the time of evaluation, patient was awake alert oriented 3, had no delusions , no auditory or visual hallucinations, no suicidal ideations or homicidal ideations. Medical Problems: Gout BPH Obstructive sleep Apnea Osteoarthritis, Diagnostic Results: Reviewed DSM 5 Symptoms Update: Some improvement with treatment Medication Change: No Medical Record Reviewed: Yes Mental Status Examination - Cognitive Function Orientation: Person, Place, Situation, Time Memory: Intact Attention: WNL Concentration: WNL Association: WNL Fund of Knowledge: [facility] Decription of patient's judgement and insights: Fair - Mood Mood: Depressed (Less than before) - Affect Affect: Depressed - Speech Speech: Appropriate - Formal Thought Process Formal Thought Process: No Impairment - Suicidal Ideation Suicidal Ideation: No - Homicidal Ideation Homicidal Ideation: No Goal/Treatment Plan - Goal/Treatment Plan Need for Continued Stay: Remain at risks for inpatient hospitalization, Discharge may exacerbated symptoms, Severe functional impairment Progress Toward Problem(s) and Goals/Treatment Plan: Some improvement with treatment. Patient education. Supportive therapy. Continue treatment as before. Estimated Date of D/C: 09/19/17 - Smoking Cessation Smoking Cessation Initiated: No
[2017-09-17] MEDS: buPROPion 150 mg/24 Hours XL Tab PO SCH (09:17)
[2017-09-17] MEDS: Multiple Vitamins Tab PO SCH (09:18)
--- NOTE | 2017-09-17 18:52 | PCM.PYCHPN ---
Psychiatric Progress Note - Psychiatric Progress Note Patient seen today, length of contact: 15 minutes Patient Chief Complaint: "I'm depressed" Problems Identified/Issues Discussed: The pt is seen, chart reviewed, case discussed with staff. Support given, CBT and [place] used briefly No new symptoms reported, improving slowly and needs more time No SEs from medications, risks discussed. After care discussed Medication Change: No Medical Record Reviewed: Yes Mental Status Examination - Cognitive Function Orientation: Person, Place, Situation, Time Memory: Intact Attention: WNL Concentration: WNL Association: WNL Fund of Knowledge: WN Decription of patient's judgement and insights: limited/limited - Mood Mood: Depressed (Less than before) - Affect Affect: Constricted - Speech Speech: Appropriate - Formal Thought Process Formal Thought Process: No Impairment - Suicidal Ideation Suicidal Ideation: No Plan: denied - Homicidal Ideation Homicidal Ideation: No Plan: denied Goal/Treatment Plan - Goal/Treatment Plan Need for Continued Stay: Remain at risks for inpatient hospitalization, Discharge may exacerbated symptoms, Severe functional impairment Progress Toward Problem(s) and Goals/Treatment Plan: Continue Wellbutrin for depressed mood. Ablify for mood stabilization Monitor vitals Prn meds MV Supportive therpay provided Encourage to attend groups activities. Therapy in milieu Will plan to d/c him with [facility] program f/u Psychoeducation was provided regarding his diagnosis, illicit drugs and etoh use and its deleterious side effects on physical and mental health. Monitor vitals. Estimated Date of D/C: 09/19/17
[2017-09-18] MEDS: Multiple Vitamins Tab PO SCH (09:01)
[2017-09-18] MEDS: buPROPion 150 mg/24 Hours XL Tab PO SCH (09:01)
[2017-09-18] MEDS: Divalproex 250 mg DR Tab PO SCH ×2 (11:01→17:35)
--- NOTE | 2017-09-18 15:59 | PCM.PYCHPN ---
Psychiatric Progress Note - Psychiatric Progress Note Patient seen today, length of contact: 15 minutes Patient Chief Complaint: I'm feeling little better. Problems Identified/Issues Discussed: Patient seen, chart reviewed, case discussed with the staff. Issues related to illness and treatment were discussed with the patient and staff. Reported compliant with treatment with no adverse affects. Tolerating treatment very well. Patient reported feeling little better. Patient reported that in the past he had very good response to Depakote. Risk and benefits of medications were discussed with the patient. Patient understood and agreed. Some improvement but still needs more time for stabilization. Patient was calm and cooperative. At the time of evaluation, patient was awake alert oriented 3, had no delusions , no auditory or visual hallucinations, no suicidal ideations or homicidal ideations. Medical Problems: Gout BPH Obstructive sleep Apnea Osteoarthritis, Diagnostic Results: Reviewed Medication Change: Yes (Will start Depakote 250 mg twice a day) Medical Record Reviewed: Yes Mental Status Examination - Cognitive Function Orientation: Person, Place, Situation, Time Memory: Intact Attention: WNL Concentration: WNL Association: WN Fund of Knowledge: [facility] Decription of patient's judgement and insights: Fair - Mood Mood: Depressed (Less than before) - Affect Affect: Depressed - Speech Speech: Appropriate - Formal Thought Process Formal Thought Process: No Impairment Psychotic Thoughts and Behaviors: None - Suicidal Ideation Suicidal Ideation: No - Homicidal Ideation Homicidal Ideation: No Goal/Treatment Plan - Goal/Treatment Plan Need for Continued Stay: Remain at risks for inpatient hospitalization, Discharge may exacerbated symptoms, Severe functional impairment Progress Toward Problem(s) and Goals/Treatment Plan: Some improvement with treatment. Patient education. Supportive therapy. We will start Depakote 250 mg twice a day Continue rest of the treatment as before. Estimated Date of D/C: 09/22/17 - Smoking Cessation Smoking Cessation Initiated: No
[2017-09-19] MEDS: Multiple Vitamins Tab PO SCH (09:10)
[2017-09-19] MEDS: Divalproex 250 mg DR Tab PO SCH ×2 (09:10→18:31)
[2017-09-19] MEDS: buPROPion 150 mg/24 Hours XL Tab PO SCH (09:10)
--- NOTE | 2017-09-19 18:46 | PCM.PYCHPN ---
Psychiatric Progress Note - Psychiatric Progress Note Patient seen today, length of contact: 15 minutes Patient Chief Complaint: I'm feeling much better with Depakote. Problems Identified/Issues Discussed: Patient seen, chart reviewed, case discussed with the staff. Issues related to illness and treatment were discussed with the patient and staff. Reported compliant with treatment with no adverse affects. Tolerating treatment very well. Patient reported feeling much better. Sleep was also good. Risk and benefits of medications were discussed with the patient. Patient understood and agreed. Some improvement but still needs more time for stabilization. Patient was calm and cooperative. At the time of evaluation, patient was awake alert oriented 3, had no delusions , no auditory or visual hallucinations, no suicidal ideations or homicidal ideations. Medical Problems: Gout BPH Obstructive sleep Apnea Osteoarthritis, Diagnostic Results: Reviewed DSM 5 Symptoms Update: Improving with treatment Medication Change: No Medical Record Reviewed: Yes Mental Status Examination - Cognitive Function Orientation: Person, Place, Situation, Time Memory: Intact Attention: WNL Concentration: WNL Association: WN Fund of Knowledge: [facility] Decription of patient's judgement and insights: Fair - Mood Mood: Depressed (Much less than before) - Affect Affect: Other (Appropriate) - Speech Speech: Appropriate - Formal Thought Process Formal Thought Process: No Impairment Psychotic Thoughts and Behaviors: None - Suicidal Ideation Suicidal Ideation: No - Homicidal Ideation Homicidal Ideation: No Goal/Treatment Plan - Goal/Treatment Plan Need for Continued Stay: Remain at risks for inpatient hospitalization, Discharge may exacerbated symptoms, Severe functional impairment Progress Toward Problem(s) and Goals/Treatment Plan: Some improvement with treatment. Patient education. Supportive therapy. Continue treatment as before Estimated Date of D/C: 09/22/17 - Smoking Cessation Smoking Cessation Initiated: No
[2017-09-20 06:43] VITALS: RESP 20
[2017-09-20] MEDS: buPROPion 150 mg/24 Hours XL Tab PO SCH (10:45)
[2017-09-20] MEDS: Divalproex 250 mg DR Tab PO SCH ×2 (10:46→17:44)
[2017-09-20] MEDS: Multiple Vitamins Tab PO SCH (10:46)
--- NOTE | 2017-09-20 14:37 | PCM.PYCHPN ---
Psychiatric Progress Note - Psychiatric Progress Note Patient seen today, length of contact: 15 minutes Patient Chief Complaint: I'm feeling much better with Depakote. Can you increase the dose of Depakote. Problems Identified/Issues Discussed: Patient seen, chart reviewed, case discussed with the staff. Issues related to illness and treatment were discussed with the patient and staff. Reported compliant with treatment with no adverse affects. Tolerating treatment very well. Patient reported feeling much better. Sleep was also good. Risk and benefits of medications were discussed with the patient. Patient understood and agreed. Some improvement but still needs more time for stabilization. Patient was calm and cooperative. At the time of evaluation, patient was awake alert oriented 3, had no delusions , no auditory or visual hallucinations, no suicidal ideations or homicidal ideations. Medical Problems: Gout BPH Obstructive sleep Apnea Osteoarthritis, Diagnostic Results: Reviewed DSM 5 Symptoms Update: Improving with treatment. Medication Change: No Medical Record Reviewed: Yes Mental Status Examination - Cognitive Function Orientation: Person, Place, Situation, Time Memory: Intact Attention: WNL Concentration: WNL Association: WNL Fund of Knowledge: [facility] Decription of patient's judgement and insights: Fair - Mood Mood: Depressed (Much less than before) - Affect Affect: Other (Appropriate) - Speech Speech: Appropriate - Formal Thought Process Formal Thought Process: No Impairment Psychotic Thoughts and Behaviors: None - Suicidal Ideation Suicidal Ideation: No - Homicidal Ideation Homicidal Ideation: No Goal/Treatment Plan - Goal/Treatment Plan Need for Continued Stay: Remain at risks for inpatient hospitalization, Discharge may exacerbated symptoms, Severe functional impairment Progress Toward Problem(s) and Goals/Treatment Plan: Some improvement with treatment. Patient education. Supportive therapy. Continue treatment as before Estimated Date of D/C: 09/22/17 - Smoking Cessation Smoking Cessation Initiated: No
[2017-09-21] MEDS: Divalproex 250 mg DR Tab PO SCH ×2 (09:24→17:30)
[2017-09-21] MEDS: Multiple Vitamins Tab PO SCH (09:24)
[2017-09-21] MEDS: buPROPion 150 mg/24 Hours XL Tab PO SCH (09:24)
--- NOTE | 2017-09-21 17:51 | PCM.PYCHPN ---
Psychiatric Progress Note - Psychiatric Progress Note Patient seen today, length of contact: 15 minutes Patient Chief Complaint: I'm feeling much better. Problems Identified/Issues Discussed: Patient seen, chart reviewed, case discussed with the staff. Issues related to illness and treatment were discussed with the patient and staff. Reported compliant with treatment with no adverse affects. Tolerating treatment very well. Patient reported feeling much better. Sleep was also good. Risk and benefits of medications were discussed with the patient. Patient understood and agreed. Some improvement but still needs more time for stabilization. Patient was calm and cooperative. At the time of evaluation, patient was awake alert oriented 3, had no delusions , no auditory or visual hallucinations, no suicidal ideations or homicidal ideations. Medical Problems: Gout BPH Obstructive sleep Apnea Osteoarthritis, Diagnostic Results: Reviewed DSM 5 Symptoms Update: Improving with treatment Medication Change: No Medical Record Reviewed: Yes Mental Status Examination - Cognitive Function Orientation: Person, Place, Situation, Time Memory: Intact Attention: WNL Concentration: WNL Association: WNL Fund of Knowledge: WN Decription of patient's judgement and insights: Fair - Mood Mood: Neutral - Affect Affect: Other (Appropriate) - Speech Speech: Appropriate - Formal Thought Process Formal Thought Process: No Impairment Psychotic Thoughts and Behaviors: None - Suicidal Ideation Suicidal Ideation: No - Homicidal Ideation Homicidal Ideation: No Goal/Treatment Plan - Goal/Treatment Plan Need for Continued Stay: Remain at risks for inpatient hospitalization, Discharge may exacerbated symptoms, Severe functional impairment Progress Toward Problem(s) and Goals/Treatment Plan: Some improvement with treatment. Patient education. Supportive therapy. Continue treatment as before Estimated Date of D/C: 09/22/17 - Smoking Cessation Smoking Cessation Initiated: No
[2017-09-22 06:21] VITALS: BP 125/69; PULSE 74; TEMP 98.6; O2SAT 100
[2017-09-22] MEDS: buPROPion 150 mg/24 Hours XL Tab PO SCH (09:00)
[2017-09-22] MEDS: Multiple Vitamins Tab PO SCH (09:00)
[2017-09-22] MEDS: Divalproex 250 mg DR Tab PO SCH (09:00)
--- NOTE | 2017-09-22 09:59 | PCM.PYCHDC ---
Mental Status Examination - Mental Status Examination Orientation: Person, Place, Situation, Time Memory: Intact Mood: Anxious Affect: Constricted Speech: Appropriate Attention: WNL Concentration: Poor Association: WNL Fund of Knowledge: WNL Formal Thought Process: No Impairment Suicidal Ideation: No Current Homicidal Ideation?: No Discharge Summary - Discharge Note Reason for Hospitalization: Feeling very depressed Psychiatric History (includes Medical, Family, Personal Hx): Psychopharmacological treatment Consultations:: List each consultation separately and include: 1. Reason for request. 2. Findings. 3. Follow-up Summary of Hospital Course include:: 1. Description of specific treatment plan utilized for patients during their course of treatmen. 2. Summarize the time- course for resolution of acute symptoms and/or regressed behaviors. 3. Describe issues identified and worked on during hospitalization. 4. Describe medication utilized. 5. Describe medical problems identified and treated. 6. Reassessment of suicide risk Summary of Hospital Course: The pt was admitted and started on treatment with psychotherapy, support, psychoeducation and medications. OR and CBT used. The pt attended groups and activities, as well as milieu therapy. All the risks and benefits of medications are discussed and the patient understood and agreed. The pt improved with the treatments provided. After care discussed with the patient. He will return to [facility] - Final Diagnosis (DSM 5) Condition upon Discharge: STABLE DSM 5: Bipolar disorder, mre depressed Alcohol use disorder Gout, HTN BPH Disposition: HOME/ ROUTINE Follow-up Treatment Plan: Continue below medications after discharge. Follow after care plan as discussed. Use relapse prevention skills Return to ER or call 911 if suicidal, homicidal or symptoms relapse. Stay away from stress, alcohol and drugs. See primary doctor regularly and get labs. Prescriptions/Medication Reconciliation: amLODIPine [Norvasc] 5 mg PO DAILY #30 tab ARIPiprazole [Abilify] 15 mg PO QPM #30 tab buPROPion XL [Wellbutrin XL] 150 mg PO DAILY #30 t24 Divalproex [Depakote DR] 500 mg PO BID #60 tcp Gabapentin [Neurontin] 600 mg PO TID #90 tab Tamsulosin [Flomax] 0.4 mg PO DAILY #30 cap traZODone [Desyrel] 200 mg PO HS PRN #60 tab PRN Reason: Insomnia - Smoking Cessation Smoking Cessation Medication prescribed: No - Antipsychotic Medications Pt discharged on 2 or more routine antipsychotic medications: No
== END 2017-09-22 10:38 | disposition home or self-care (01) | DRG 430 ==
LOC: C.ER 10:38 → C.5E 13:10
PROVIDERS: ADMIT Psychiatry & Neurology Psychiatry; ATTEND Psychiatry & Neurology Psychiatry
DX: F31.10 Bipolar disorder, current episode manic without psychotic features, unspecified (principal); I10 Essential (primary) hypertension; M10.9 Gout, unspecified; M19.90 Unspecified osteoarthritis, unspecified site; N40.0 Benign prostatic hyperplasia without lower urinary tract symptoms; Z87.891 Personal history of nicotine dependence; R45.851 Suicidal ideations; G47.33 Obstructive sleep apnea (adult) (pediatric); F43.10 Post-traumatic stress disorder, unspecified; F12.90 Cannabis use, unspecified, uncomplicated; F10.220 Alcohol dependence with intoxication, uncomplicated; Y90.1 Blood alcohol level of 20-39 mg/100 ml

== ENCOUNTER 2017-10-01 11:38 | Emergency (ER) | payer MEDICAID ==
[2017-10-01 11:46] VITALS: BMI 31.1
[2017-10-01 11:47] VITALS: BP 141/83; PULSE 94; RESP 94; TEMP 98.1; O2SAT 96
--- NOTE | 2017-10-01 12:11 | C.PDOC ---
History Of Present Illness 52-year-old male with a past medical history of arthritis presents to the ED with complaints of 1 week of bilateral knee pain, left greater than right. He denies any fall or blunt trauma. Patient reports his primary doctor prescribed him a 7 day course of oral steroids, which he has taken for 5 days without improvement. Pain worsens with ambulation and weight bearing. Patient otherwise denies any numbness, tingling, weakness, calf pain/swelling, or foot pain. He also reports a history of Gout and complaints he is out of medication for this. Time Seen by Provider: 10/01/17 11:53 Chief Complaint (Nursing): Lower Extremity Problem/Injury History Per: Patient History/Exam Limitations: no limitations Onset/Duration Of Symptoms: Days (x7) Current Symptoms Are (Timing): Still Present Past Medical History Reviewed: Historical Data, Nursing Documentation, Vital Signs Vital Signs: Last Vital Signs Temp 98.1 F 10/01/17 11:46 Pulse 94 H 10/01/17 11:46 Resp 94 H 10/01/17 11:46 BP 141/83 10/01/17 11:46 Pulse Ox 96 10/01/17 12:43 - Medical History PMH: Anemia, Anxiety, Arthritis, Benign Prostatic Hyperplasia, Bipolar Disorder , Depression, Diverticulitis (Dx 2015), Gastritis, HTN (Norvasc), Post Traumatic Stress Disorder, Seizures (none since 2007), Sleep Apnea Other PMH: Gout Surgical History: Cholecystectomy (July 2016) - [facility] Procedures ALCOHOL DETOXIFICATION (04/14/14) DETOXIFICATION SERVICES FOR SUBSTANCE ABUSE TREATMENT (11/10/16) GROUP LEAD ORACLE DEVELOPER FOR SUBSTANCE ABUSE TREATMENT, PSYCHOEDUCATION (08/20/16) GROUP PSYCHOTHERAPY (08/26/17) INDIV PSYCHOTHERAPY FOR SUBSTANCE ABUSE TREATMENT, SUPPORT (09/05/16) INDIV PSYCHOTHERAPY FOR SUBSTANCE ABUSE, COGNITIV BEHAVIORAL (09/05/16) INDIV PSYCHOTHERAPY FOR SUBSTANCE ABUSE, PSYCHOEDUCATION (09/05/16) INDIVIDUAL PSYCHOTHERAPY, COGNITIVE-BEHAVIORAL (08/26/17) INDIVIDUAL PSYCHOTHERAPY, SUPPORTIVE (08/26/17) MEDICATION MANAGEMENT (08/20/16) Family History: States: Unknown Family Hx - Social History Hx Tobacco Use: Yes Hx Alcohol Use: Yes (sober x 8months) Hx Substance Use: No - Immunization History Hx Tetanus Toxoid Vaccination: No Hx Influenza Vaccination: No Hx Pneumococcal Vaccination: No Review Of Systems Except As Marked, All Systems Reviewed And Found Negative. Musculoskeletal: Positive for: Leg Pain (bilateral knee pain). Negative for: Other (calf pain, foot pain) Neurological: Negative for: Weakness, Numbness, Incoordination, Other (tingling) Physical Exam - Physical Exam Appears: Well, Non-toxic, No Acute Distress Skin: Warm, Dry, No Rash Head: Atraumatic, Normacephalic Eye(s): bilateral: Normal Inspection Oral Mucosa: Moist Neck: Normal ROM Chest: Symmetrical Extremity: Normal ROM, Tenderness (anterior bilateral knees), No Calf Tenderness , Capillary Refill (< 2 sec), No Deformity, Swelling (Mild swelling to left knee ) Pulses: Left Dorsalis Pedis: Normal, Right Dorsalis Pedis: Normal Neurological/Psych: Oriented x3, Normal Speech, Normal Motor, Normal Sensation, Other (No focal deficits) ED Course And Treatment O2 Sat by Pulse Oximetry: 96 (RA) Pulse Ox Interpretation: Normal Medical Decision Making Medical Decision Making: Impression: Atraumatic knee pain, Hx of Gout Time: 12:07 Initial Plan: * Colchicine 0.6 mg PO * Toradol 30 mg IM Progress, Reassess and Dispo: On re-examination, patient is resting comfortably in no acute distress. Patient reports improvement of symptoms. Patient feels comfortable going home and will be discharged. Patient given follow up instructions and prescriptions. Instructed to follow up with PMD or return to ER if symptoms worsen or new symptoms arise. Disposition Counseled Patient/Family Regarding: Diagnosis, Need For Followup, Rx Given - Disposition Referrals: Vandana Roth APN [Advanced Practice Nurse] - Disposition: HOME/ ROUTINE Disposition Time: 12:26 Condition: STABLE Additional Instructions: Take colchicine once or twice daily for gout Take naproxen for pain follow up with your doctor Prescriptions: Colchicine 0.6 mg PO DAILY #14 capsule Naproxen [Naprosyn] 1 tab PO Q12 #25 tab Instructions: Gout (DC) Forms: [facility] [employer] [facility] (Ind[place]ian) - POA Present On Arrival: None - Clinical Impression Clinical Impression: Gouty arthritis, Arthralgia of knee - PA / LABOR RELATIONS TEACHER / Resident Statement MD/DO has reviewed & agrees with the documentation as recorded. - Scribe Statement The provider has reviewed the documentation as recorded by the Scribe (Divina Oliva) All medical record entries made by the Scribe were at my direction and personally dictated by me. I have reviewed the chart and agree that the record accurately reflects my personal performance of the history, physical exam, medical decision making, and the department course for this patient. I have also personally directed, reviewed, and agree with the discharge instructions and disposition.
== END 2017-10-01 12:43 | disposition home or self-care (01) ==
LOC: C.ER 11:38
DX: M10.9 Gout, unspecified (principal); M25.562 Pain in left knee
CPT/HCPCS: 96372; 99285; J1885

== ENCOUNTER 2017-10-04 06:07 | Emergency (ER) | payer MEDICAID ==
[2017-10-04 06:07] VITALS: BMI 31.1
[2017-10-04 06:16] VITALS: BP 154/103; PULSE 90; TEMP 98.5; O2SAT 97
--- NOTE | 2017-10-04 06:24 | C.PDOC ---
History Of Present Illness 52 year old male presents to the ED for evaluation of sleep apnea exacerbation and difficulty sleeping at night for the past 3-4 days. Patient denies fever, chills. Chief Complaint (Nursing): Shortness Of Breath History Per: Patient History/Exam Limitations: no limitations Onset/Duration Of Symptoms: Days Current Symptoms Are (Timing): Still Present Quality: denies: "Pain" Current Respiratory Medications: See Home Med List Associated Symptoms: denies: Fever, Chills Past Medical History Reviewed: Historical Data, Nursing Documentation, Vital Signs Vital Signs: Last Vital Signs Temp 98.5 F 10/04/17 06:12 Pulse 90 10/04/17 06:12 Resp 18 10/04/17 06:24 BP 154/103 H 10/04/17 06:12 Pulse Ox 97 10/04/17 06:28 - Medical History PMH: Anemia, Anxiety, Arthritis, Benign Prostatic Hyperplasia, Bipolar Disorder , Depression, Diverticulitis (2015), Gastritis, HTN, Post Traumatic Stress Disorder, Seizures (none since 2007), Sleep Apnea Denies: Diabetes, Hepatitis, HIV, Chronic Kidney Disease, Sexually Transmitted Disease Surgical History: Cholecystectomy (July 2016) - [facility] Procedures ALCOHOL DETOXIFICATION (04/14/14) DETOXIFICATION SERVICES FOR SUBSTANCE ABUSE TREATMENT (11/10/16) GROUP IRB COMPLIANCE COORDINATOR FOR SUBSTANCE ABUSE TREATMENT, PSYCHOEDUCATION (08/20/16) GROUP PSYCHOTHERAPY (08/26/17) INDIV PSYCHOTHERAPY FOR SUBSTANCE ABUSE TREATMENT, SUPPORT (09/05/16) INDIV PSYCHOTHERAPY FOR SUBSTANCE ABUSE, COGNITIV BEHAVIORAL (09/05/16) INDIV PSYCHOTHERAPY FOR SUBSTANCE ABUSE, PSYCHOEDUCATION (09/05/16) INDIVIDUAL PSYCHOTHERAPY, COGNITIVE-BEHAVIORAL (08/26/17) INDIVIDUAL PSYCHOTHERAPY, SUPPORTIVE (08/26/17) MEDICATION MANAGEMENT (08/20/16) Family History: States: Unknown Family Hx - Social History Hx Tobacco Use: Yes Hx Alcohol Use: Yes (sober x 8months) Hx Substance Use: No - Immunization History Hx Tetanus Toxoid Vaccination: No Hx Influenza Vaccination: No Hx Pneumococcal Vaccination: No Review Of Systems Respiratory: Positive for: Other (sleep apnea ) Physical Exam - Physical Exam Appears: Non-toxic, No Acute Distress Skin: Normal Color, Warm, Dry Head: Atraumatic, Normacephalic Eye(s): bilateral: Normal Inspection Oral Mucosa: Moist Neck: Supple Chest: Symmetrical, No Deformity, No Tenderness Cardiovascular: Rhythm Regular, No Murmur Respiratory: Normal Breath Sounds, No Rales, No Rhonchi, No Wheezing Extremity: Normal ROM, Capillary Refill (less than 2 seconds ) Neurological/Psych: Oriented x3, Normal Speech, Normal Cognition ED Course And Treatment O2 Sat by Pulse Oximetry: 97 (on RA) Pulse Ox Interpretation: Normal Progress Note: Patient is resting comfortably, showing no signs of respiratory distress and is stable for discharge. Patient is advised to follow up with his PMD within 1-2 days for further evaluation and/or return to the ED if symptoms persist or worsen. Disposition - Disposition Referrals: [facility] [Outside] Faith Gonzales MD [Staff Provider] - Disposition: HOME/ ROUTINE Disposition Time: 06:24 Condition: STABLE Instructions: Sleep Apnea Forms: [facility] ([place]) - Clinical Impression Clinical Impression: Sleep apnea in adult - Scribe Statement The provider has reviewed the documentation as recorded by the Scribe (Norah Lee) Provider Attestation: All medical record entries made by the Scribe were at my direction and personally dictated by me. I have reviewed the chart and agree that the record accurately reflects my personal performance of the history, physical exam, medical decision making, and the department course for this patient. I have also personally directed, reviewed, and agree with the discharge instructions and disposition.
--- NOTE | 2017-10-04 06:25 | C.PDOC ---
Chief Complaint (Nursing): Shortness Of Breath Past Medical History Vital Signs: Last Vital Signs Temp 98.5 F 10/04/17 06:12 Pulse 90 10/04/17 06:12 Resp 22 10/04/17 06:12 BP 154/103 H 10/04/17 06:12 Pulse Ox 97 10/04/17 06:12 - Medical History PMH: Anemia, Anxiety, Arthritis, Benign Prostatic Hyperplasia, Bipolar Disorder , Depression, Diverticulitis (2015), Gastritis, HTN, Post Traumatic Stress Disorder, Seizures (none since 2007), Sleep Apnea Denies: Diabetes, Hepatitis, HIV, Chronic Kidney Disease, Sexually Transmitted Disease Surgical History: Cholecystectomy (July 2016) - [facility] Procedures ALCOHOL DETOXIFICATION (04/14/14) DETOXIFICATION SERVICES FOR SUBSTANCE ABUSE TREATMENT (11/10/16) GROUP TRAVELING BUYER FOR SUBSTANCE ABUSE TREATMENT, PSYCHOEDUCATION (08/20/16) GROUP PSYCHOTHERAPY (08/26/17) INDIV PSYCHOTHERAPY FOR SUBSTANCE ABUSE TREATMENT, SUPPORT (09/05/16) INDIV PSYCHOTHERAPY FOR SUBSTANCE ABUSE, COGNITIV BEHAVIORAL (09/05/16) INDIV PSYCHOTHERAPY FOR SUBSTANCE ABUSE, PSYCHOEDUCATION (09/05/16) INDIVIDUAL PSYCHOTHERAPY, COGNITIVE-BEHAVIORAL (08/26/17) INDIVIDUAL PSYCHOTHERAPY, SUPPORTIVE (08/26/17) MEDICATION MANAGEMENT (08/20/16) Family History: States: Unknown Family Hx - Social History Hx Tobacco Use: Yes Hx Alcohol Use: Yes (sober x 8months) Hx Substance Use: No - Immunization History Hx Tetanus Toxoid Vaccination: No Hx Influenza Vaccination: No Hx Pneumococcal Vaccination: No ED Course And Treatment O2 Sat by Pulse Oximetry: 97 Disposition - Disposition Referrals: [facility] [Outside] Faith Gonzales MD [Staff Provider] - Disposition: HOME/ ROUTINE Disposition Time: 06:24 Condition: STABLE Instructions: Sleep Apnea - POA Present On Arrival: None - Clinical Impression Clinical Impression: Sleep apnea in adult
[2017-10-04 06:26] VITALS: RESP 18
[2017-10-04] MEDS ORDERED: Amoxicillin-Clav 500-125 mg Tab PO STA (06:31)
== END 2017-10-04 06:38 | disposition home or self-care (01) ==
LOC: C.ER 06:07
DX: G47.30 Sleep apnea, unspecified (principal)

== ENCOUNTER 2017-10-07 19:03 | Emergency (ER) | payer MEDICAID ==
[2017-10-07 19:03] VITALS: BMI 31.1
[2017-10-07 19:18] VITALS: RESP 16
[2017-10-07 19:43] LABS: SQUAMOUS EPITHIAL < 1 /hpf (0-5); URINE BILIRUBIN NEGATIVE (NEGATIVE); URINE BLOOD NEGATIVE (NEGATIVE); URINE CLARITY Clear (Clear); URINE COLOR Yellow (YELLOW); URINE GLUCOSE (UA) NORMAL (Normal); URINE LEUKOCYTE ESTERASE NEG Leu/uL (Negative); URINE PROTEIN NEGATIVE (NEGATIVE); URINE UROBILINOGEN NORMAL mg/dL (0.2-1.0)
[2017-10-07 19:56] LABS: BARBITURATES, UR NEGATIVE (NEGATIVE); BENZODIAZEPINES, UR NEGATIVE (NEGATIVE); OPIATES, UR NEGATIVE (NEGATIVE); PHENCYCLIDINE, UR NEGATIVE (NEGATIVE)
[2017-10-07 20:31] LABS: BASO # 0.1 K/uL (0.0-0.2); BASO % 0.9 % (0.0-2.0); EOS # 0.2 K/uL (0.0-0.7); EOS % 2.7 % (0.0-4.0); HEMOGLOBIN 11.6 g/dL (12.0-18.0); LYMPH # 2.6 K/uL (1.0-4.3); LYMPH % 28.8 % (20.0-40.0); MEAN CELL VOLUME 81.1 fL (80.0-94.0); MEAN CORPUSCULAR HGB CONC 30.9 g/dL (33.0-37.0); MEAN PLATELET VOLUME 8.5 fL (7.2-11.7); MONO # 0.8 K/uL (0.0-0.8); MONO % 8.3 % (0.0-10.0); NEUT # 5.4 K/uL (1.8-7.0); NEUT % 59.3 % (50.0-75.0); NRBC % 0.1 % (0.0-2.0); RBC 4.64 Mil/uL (4.40-5.90); RED CELL DISTRIBUTION WIDTH 14.8 % (11.5-14.5); WHITE BLOOD COUNT 9.1 K/uL (4.8-10.8)
[2017-10-07 21:21] LABS: ALB/GLOB RATIO 1.4 (1.0-2.1); ALT/SGPT 30 U/L (21-72); AST/SGOT 24 U/L (17-59); BLOOD UREA NITROGEN 15 mg/dL (9-20); CALCIUM 8.8 mg/dl (8.6-10.4); GFR AFRICAN-AMERICAN > 60; GFR NON-AFRICAN AMERICAN > 60
--- NOTE | 2017-10-07 21:52 | C.PDOC ---
History Of Present Illness 52 year old male, whose PMHx incldues Bipolar Disorder, Schizophrenia, PTSD, Depression and Anxiety presents to the ED for psychiatric evaluation. Patient reports depression, anxiety, and states he has been having suicidal thoughts. Patient has medical history of HTN, gout, prostate issues, osteoarthritis. His surgeries include gallbladder removal in 2016. Patient takes Depakote, Gabapentin, abilify, thorazine. Time Seen by Provider: 10/07/17 19:33 Chief Complaint (Nursing): Psychiatric Evaluation History Per: Patient History/Exam Limitations: no limitations Onset/Duration Of Symptoms: Hrs Current Symptoms Are (Timing): Still Present Suicide/Self Injury Attempted (Context): None Associated Symptoms: Anxiety, Depression, Suicidal Thoughts Additional History Per: Patient Past Medical History Reviewed: Historical Data, Nursing Documentation, Vital Signs Vital Signs: Last Vital Signs Temp 98.2 F 10/07/17 19:11 Pulse 105 H 10/07/17 19:11 Resp 16 10/07/17 19:11 BP 121/76 10/07/17 19:11 Pulse Ox 95 10/07/17 22:55 - Medical History PMH: Anemia, Anxiety, Arthritis, Benign Prostatic Hyperplasia, Bipolar Disorder , Depression, Diverticulitis (Dx 2015), Gastritis, HTN, Post Traumatic Stress Disorder, Seizures (ETOH), Sleep Apnea Denies: Diabetes, Hepatitis, HIV, Chronic Kidney Disease, Sexually Transmitted Disease Surgical History: Cholecystectomy (July 2016) - [facility] Procedures ALCOHOL DETOXIFICATION (04/14/14) DETOXIFICATION SERVICES FOR SUBSTANCE ABUSE TREATMENT (11/10/16) GROUP GLASS CALIBRATOR FOR SUBSTANCE ABUSE TREATMENT, PSYCHOEDUCATION (08/20/16) GROUP PSYCHOTHERAPY (08/26/17) INDIV PSYCHOTHERAPY FOR SUBSTANCE ABUSE TREATMENT, SUPPORT (09/05/16) INDIV PSYCHOTHERAPY FOR SUBSTANCE ABUSE, COGNITIV BEHAVIORAL (09/05/16) INDIV PSYCHOTHERAPY FOR SUBSTANCE ABUSE, PSYCHOEDUCATION (09/05/16) INDIVIDUAL PSYCHOTHERAPY, COGNITIVE-BEHAVIORAL (08/26/17) INDIVIDUAL PSYCHOTHERAPY, SUPPORTIVE (08/26/17) MEDICATION MANAGEMENT (08/20/16) Family History: States: Unknown Family Hx - Social History Hx Tobacco Use: Yes Hx Alcohol Use: Yes Hx Substance Use: No - Immunization History Hx Tetanus Toxoid Vaccination: No Hx Influenza Vaccination: No Hx Pneumococcal Vaccination: No Review Of Systems Constitutional: Negative for: Fever, Chills, Sweats Eyes: Negative for: Pain, Vision Change, Conjunctivae Inflammation ENT: Negative for: Ear Pain, Ear Discharge, Nose Pain, Nose Discharge Cardiovascular: Negative for: Chest Pain, Palpitations, Orthopnea, Paroxysmal Noc. Dyspnea Respiratory: Negative for: Cough, Shortness of Breath, Hemoptysis Gastrointestinal: Negative for: Nausea, Vomiting, Abdominal Pain Genitourinary: Negative for: Dysuria Musculoskeletal: Negative for: Neck Pain Skin: Negative for: Rash Neurological: Negative for: Weakness, Numbness Psych: Positive for: Anxiety, Depression, Suicidal ideation Physical Exam - Physical Exam Appears: Non-toxic, No Acute Distress Skin: Normal Color, Warm, Dry Head: Atraumatic, Normacephalic Eye(s): bilateral: Normal Inspection, PERRL, EOMI Ear(s): Left: Normal, Bilateral: Normal Nose: Normal Oral Mucosa: Moist Tongue: Normal Appearing Lips: Normal Appearing Gingiva: Normal Appearing Throat: Normal Neck: Normal, Supple Chest: Symmetrical, No Deformity, No Tenderness Cardiovascular: Rhythm Regular, No Murmur Respiratory: Normal Breath Sounds, No Rales, No Rhonchi, No Wheezing Gastrointestinal/Abdominal: Normal Exam Male Genital: Normal Inspection Extremity: Normal ROM Extremity: Bilateral: Atraumatic, No Pedal Edema, Normal Color And Temperature, Normal ROM Neurological/Psych: Oriented x3, Normal Speech, Normal Cognition ED Course And Treatment - Laboratory Results Result Diagrams: 10/07/17 20:28 10/07/17 20:28 ECG: Interpreted By Me, Viewed By Me ECG Rhythm: Sinus Rhythm Interpretation Of ECG: Normal Sinus Rhythm at rate 91bpm. No ischemic changes. no prior EKG for comparison. HI interval 152ms. QRS duration 92ms. QT/QTc 390 /479ms. P-R-T axes 68/04/07 Rate From EC O2 Sat by Pulse Oximetry: 95 (on RA) Pulse Ox Interpretation: Normal Medical Decision Making Medical Decision Making: Progress: Bloodwork, urinalysis, EKG ordered and reviewed. Patient was discharged from psych unit September 22 and admitted for bipolar disorder. Psych Doctor data consultant discussed and said will observe patient in the ED and give evening meds and have psychiatry re-eval in the morning. Disposition Counseled Patient/Family Regarding: Diagnosis - Disposition Disposition: HOSPITALIZED Disposition Time: 00:03 Condition: FAIR Forms: [employer] (French) - Clinical Impression Clinical Impression: Moderate major depression, single episode, Major depression, Bipolar 1 disorder
[2017-10-07] MEDS ORDERED: Divalproex 125 mg DR Tab PO STA (22:29)
[2017-10-07] MEDS ORDERED: Divalproex 500 mg DR Tab PO ONE (22:45)
[2017-10-08 01:49] VITALS: BP 118/72; PULSE 90; TEMP 98.5; O2SAT 96
--- NOTE | 2017-10-08 11:48 | CARD ---
APPROVED REPORT Date of service: 10/07/2017 EKG Measurement Heart [id number] <Conclusion> Normal sinus rhythm Normal ECG
== END 2017-10-08 01:49 | disposition home or self-care (01) ==
LOC: C.ER 19:03
DX: F32.1 Major depressive disorder, single episode, moderate (principal)

== ENCOUNTER 2017-10-28 13:46 | Inpatient (IN) | payer MEDICAID ==
[2017-10-28 13:46] VITALS: BMI 31.1
[2017-10-28 14:31] LABS: BASO # 0.1 K/uL (0.0-0.2); BASO % 1.8 % (0.0-2.0); EOS # 0.2 K/uL (0.0-0.7); HEMOGLOBIN 11.9 g/dL (12.0-18.0); LYMPH % 32.1 % (20.0-40.0); MEAN CELL VOLUME 81.1 fL (80.0-94.0); MEAN CORPUSCULAR HEMOGLOBIN 25.5 pg (27.0-31.0); MEAN CORPUSCULAR HGB CONC 31.5 g/dL (33.0-37.0); MEAN PLATELET VOLUME 9.2 fL (7.2-11.7); MONO # 0.6 K/uL (0.0-0.8); MONO % 8.8 % (0.0-10.0); NEUT # 3.4 K/uL (1.8-7.0); NEUT % 54.3 % (50.0-75.0); NRBC % 0.1 % (0.0-2.0); RBC 4.68 Mil/uL (4.40-5.90); RED CELL DISTRIBUTION WIDTH 14.8 % (11.5-14.5); WHITE BLOOD COUNT 6.3 K/uL (4.8-10.8)
[2017-10-28 14:40] LABS: SQUAMOUS EPITHIAL < 1 /hpf (0-5); URINE BILIRUBIN NEGATIVE (NEGATIVE); URINE BLOOD NEGATIVE (NEGATIVE); URINE CLARITY Clear (Clear); URINE COLOR Yellow (YELLOW); URINE GLUCOSE (UA) NORMAL (Normal); URINE LEUKOCYTE ESTERASE NEG Leu/uL (Negative); URINE PROTEIN 1+ mg/dL (NEGATIVE)
--- NOTE | 2017-10-28 14:45 | C.PDOC ---
History Of Present Illness 52 year old male with PMHx of Bipolar Disorder, Schizophrenia, PTSD, Depression and Anxiety presents to the ED for psychiatric evaluation. Patient reports depression, anxiety, and states he has been having suicidal thoughts with no definite plan. He denies HI. Time Seen by Provider: 10/28/17 14:04 Chief Complaint (Nursing): Psychiatric Evaluation History Per: Patient History/Exam Limitations: no limitations Onset/Duration Of Symptoms: Days Current Symptoms Are (Timing): Still Present Suicide/Self Injury Attempted (Context): None Modifying Factor(s): None Associated Symptoms: Depression, Suicidal Thoughts Past Medical History Reviewed: Historical Data, Nursing Documentation, Vital Signs Vital Signs: Last Vital Signs Temp 98.2 F 10/28/17 16:13 Pulse 83 10/28/17 16:13 Resp 16 10/28/17 16:13 BP 123/84 10/28/17 16:13 Pulse Ox 95 10/28/17 18:12 - Medical History PMH: Anemia, Anxiety, Arthritis, Benign Prostatic Hyperplasia, Bipolar Disorder , Depression, Diverticulitis (Dx 2015), Gastritis, HTN, Post Traumatic Stress Disorder, Seizures (ETOH), Sleep Apnea Denies: Diabetes, Hepatitis, HIV, Chronic Kidney Disease, Sexually Transmitted Disease Surgical History: Cholecystectomy (July 2016) - [facility] Procedures ALCOHOL DETOXIFICATION (04/14/14) DETOXIFICATION SERVICES FOR SUBSTANCE ABUSE TREATMENT (11/10/16) GROUP TIRE BUILDER OPERATOR FOR SUBSTANCE ABUSE TREATMENT, PSYCHOEDUCATION (08/20/16) GROUP PSYCHOTHERAPY (08/26/17) INDIV PSYCHOTHERAPY FOR SUBSTANCE ABUSE TREATMENT, SUPPORT (09/05/16) INDIV PSYCHOTHERAPY FOR SUBSTANCE ABUSE, COGNITIV BEHAVIORAL (09/05/16) INDIV PSYCHOTHERAPY FOR SUBSTANCE ABUSE, PSYCHOEDUCATION (09/05/16) INDIVIDUAL PSYCHOTHERAPY, COGNITIVE-BEHAVIORAL (08/26/17) INDIVIDUAL PSYCHOTHERAPY, SUPPORTIVE (08/26/17) MEDICATION MANAGEMENT (08/20/16) Family History: States: No Known Family Hx - Social History Hx Tobacco Use: Yes Hx Alcohol Use: Yes Hx Substance Use: No - Immunization History Hx Tetanus Toxoid Vaccination: No Hx Influenza Vaccination: No Hx Pneumococcal Vaccination: No Review Of Systems Except As Marked, All Systems Reviewed And Found Negative. Psych: Positive for: Anxiety, Depression, Suicidal ideation Physical Exam - Physical Exam Appears: Non-toxic, No Acute Distress Skin: Warm, Dry Head: Normacephalic Eye(s): bilateral: Normal Inspection Nose: Normal Oral Mucosa: Moist Neck: Supple Chest: Symmetrical Cardiovascular: Rhythm Regular Respiratory: Normal Breath Sounds, No Rales, No Rhonchi, No Wheezing Extremity: Normal ROM Neurological/Psych: Oriented x3, Normal Speech Gait: Steady ED Course And Treatment - Laboratory Results Result Diagrams: 10/28/17 14:25 10/28/17 14:25 O2 Sat by Pulse Oximetry: 95 (RA) Pulse Ox Interpretation: Normal Medical Decision Making Medical Decision Making: Orders: - Lab work - UA - Crisis Eval The patient is medically cleared for psych admission. Disposition - Disposition Disposition: HOSPITALIZED Disposition Time: 16:30 Condition: STABLE - Clinical Impression Clinical Impression: Bipolar disorder - PA / DIRECTOR WORKFORCE MANAGEMENT / Resident Statement MD/DO has reviewed & agrees with the documentation as recorded. - Scribe Statement The provider has reviewed the documentation as recorded by the Scribe Ana Schneider All medical record entries made by the Scribe were at my direction and personally dictated by me. I have reviewed the chart and agree that the record accurately reflects my personal performance of the history, physical exam, medical decision making, and the department course for this patient. I have also personally directed, reviewed, and agree with the discharge instructions and disposition.
[2017-10-28 14:47] LABS: ALB/GLOB RATIO 1.4 (1.0-2.1); ALBUMIN 4.4 g/dL (3.5-5.0); ALT/SGPT 25 U/L (21-72); AST/SGOT 20 U/L (17-59); BLOOD UREA NITROGEN 5 mg/dL (9-20); CALCIUM 9.3 mg/dl (8.6-10.4); GFR AFRICAN-AMERICAN > 60; GFR NON-AFRICAN AMERICAN > 60
[2017-10-28 15:02] LABS: BARBITURATES, UR NEGATIVE (NEGATIVE); BENZODIAZEPINES, UR NEGATIVE (NEGATIVE); OPIATES, UR NEGATIVE (NEGATIVE); PHENCYCLIDINE, UR NEGATIVE (NEGATIVE)
--- NOTE | 2017-10-28 18:36 | PCM.BM ---
<Andrew Wright - Last Filed: 10/28/17 18:35> Treatment Plan Problems - Problems identified on initial assessmt bi-polar disorder Date Initiated: 10/28/17 Time Initiated: 18:35 Treatment assets and liabiliti Patient Assests: adapts well, cooperative, insightful, motivated, resourceful, self-reliant, ADL independent, good support system, negotiates basic needs, cognitively intact ( ), good interpersonal skills Patient Liabilities: medical problems - Milieu Protocol Maintain good personal hygiene: daily Encourage regular showers, daily Remind patient to perform daily oral care, daily Assist patient to perform ADL's Conduct patient checks and document Observation sheet: Q15 minutes Maintain personal safety: every shift Educate patient to report safety concerns to staff, every shift Monitor environment for contraband/sharps Medication safety: Monitor for expected outcome, potential side effects: every shift, Assess barriers to learning: every shift, Assess readiness for medication education: every shift <Elidia Vuong - Last Filed: 10/29/17 11:16> - Diagnosis (1) Bipolar disorder Status: Acute Interventions: 10/29/17 11:16 * Assess/adjust medications daily and /or as needed * See patient on an individual basis 7x/week to assess level of manic behaviors and stability * Discuss risks, benefits, side effects and alternatives of medications * (2) Alcohol abuse Status: Acute Interventions: 10/29/17 11:16 * Assess 7x/week regarding severity of withdrawal * Educate regarding risks, benefits, side effects and alternatives of medications * Use Motivational Interviewing for abstinence * Use CBT for relapse prevention * Medication management for withdrawal symptoms * Encourage medication assisted treatment * <Denisse Garrison - Last Filed: 10/29/17 15:29> Family Contact Family involvement: Patient does not wish Family/SO involvement Family contact: Patient declines to allow family contact at present - Goals for Treatment Patient goals for treatment: "I [facility] to go return to [facility] Discharge/Continuing Care - Education Needs Education Needs: Patient Medication, Patient Diagnosis/Disease Process, Patient Coping Skills - Discharge Discharge Criteria: Free of Suicidal thoughts, Normal sleep pattern, Ability to care for self, Reduction of target symptoms Discharge to:: Home - Treatment Team Participation Discussed with Family/SO: No Was Patient/Family/SO present at Treatment Team Meeting: Yes
[2017-10-29] MEDS: Pantoprazole 20 mg EC Tab PO SCH (10:10)
[2017-10-29] MEDS: buPROPion 150 mg/24 Hours XL Tab PO SCH (10:10)
[2017-10-29] MEDS: Divalproex 500 mg DR Tab PO SCH ×2 (10:12→17:41)
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
[2017-10-30] MEDS: buPROPion 150 mg/24 Hours XL Tab PO SCH (10:36)
[2017-10-30] MEDS: Divalproex 500 mg DR Tab PO SCH ×2 (10:36→17:40)
[2017-10-30] MEDS: Pantoprazole 20 mg EC Tab PO SCH (10:37)
--- NOTE | 2017-10-30 13:11 | PCM.PYCHPN ---
Psychiatric Progress Note - Psychiatric Progress Note Patient seen today, length of contact: 16 min Patient Chief Complaint: I was feeling depressed.' Problems Identified/Issues Discussed: Patient seen and evaluated, chart reviewed and discussed with the nurse. Pt reports depressed mood, and remained isolated and withdrawn, and confined to his room. He still reports some withdrawal symptoms joint pain, sweating and headaches. He denies any AVH or any paranoia. Patient is compliant with medications and denies any side effects. Symptoms are improving but pt needs more time to stabilize. Support and psychoeducation given. Medication Change: Yes Medical Record Reviewed: Yes Mental Status Examination - Cognitive Function Orientation: Person, Place, Situation, Time Memory: Intact Attention: WNL Concentration: Poor Association: WNL Fund of Knowledge: Poor - Mood Mood: Depressed, Anxious - Affect Affect: Constricted, Depressed - Formal Thought Process Formal Thought Process: Delusions - Suicidal Ideation Suicidal Ideation: No - Homicidal Ideation Homicidal Ideation: No Goal/Treatment Plan - Goal/Treatment Plan Need for Continued Stay: Severe depression anxiety, Severe functional impairment Progress Toward Problem(s) and Goals/Treatment Plan: Bipolar disorder depressed severe with psychotic features Alcohol use disorder severe Gout, HTN BPH CBT Psychoeducation Supportive therapy, milieu therapy, group therapy Abilify 15 mg Welbutrin 150 mg Depakote 500 mg PO BID Trazodone 200 mg PO QHS Neurontin 600 mg PO TID Continue home meds
[2017-10-30] MEDS ORDERED: Aluminum Hydroxide/Magnesium Hydroxide Susp (30 mL) PO PRN (20:43)
[2017-10-31] MEDS: Pantoprazole 20 mg EC Tab PO SCH (09:44)
[2017-10-31] MEDS: Divalproex 500 mg DR Tab PO SCH ×2 (09:44→17:37)
[2017-10-31] MEDS: buPROPion 150 mg/24 Hours XL Tab PO SCH (09:44)
--- NOTE | 2017-10-31 12:56 | PCM.PYCHPN ---
Psychiatric Progress Note - Psychiatric Progress Note Patient seen today, length of contact: 15 min Patient Chief Complaint: "Not well" Problems Identified/Issues Discussed: The pt is seen, chart reviewed, case discussed with staff. The pt is compliant with medications and reports no side-effects. Symptoms are improving but needs more time to stabilize. STill depressed, feels vaguely SI - no plan/urge After care discussed, support and psychoeducation given. Medication Change: Yes (increase wellbutril xl to 300 mg) Medical Record Reviewed: Yes Mental Status Examination - Cognitive Function Orientation: Person, Place, Situation, Time Memory: Intact Attention: WNL Concentration: Poor Association: WNL Fund of Knowledge: Poor - Mood Mood: Depressed, Anxious - Affect Affect: Constricted, Depressed - Formal Thought Process Formal Thought Process: Delusions - Suicidal Ideation Suicidal Ideation: No - Homicidal Ideation Homicidal Ideation: No Goal/Treatment Plan - Goal/Treatment Plan Need for Continued Stay: Severe depression anxiety, Severe functional impairment Progress Toward Problem(s) and Goals/Treatment Plan: Continue medications Support and psychoeducation daily Attend groups and activities daily After care planning by HARIS Estimated Date of D/C: 11/03/17
[2017-11-01] MEDS: Divalproex 500 mg DR Tab PO SCH ×2 (09:13→17:02)
[2017-11-01] MEDS: buPROPion 150 mg/24 Hours XL Tab PO SCH (09:13)
[2017-11-01] MEDS: Pantoprazole 20 mg EC Tab PO SCH (09:14)
--- NOTE | 2017-11-01 23:03 | PCM.PYCHPN ---
Psychiatric Progress Note - Psychiatric Progress Note Patient seen today, length of contact: 15 min Patient Chief Complaint: I'M DEPRESSED AND I'M HEARING VOICES Problems Identified/Issues Discussed: PT SEEN AND EXAMINED DISCUSSED WITH STAFF DISCUSSED WITH PT HOW TO COPE WITH THE HALLUCINATIONS Medical Problems: NONE NOTED OR REPORTED Diagnostic Results: REVIEWED DSM 5 Symptoms Update: HALLUCINATIONS Medication Change: Yes (INCREASE ABILIFY 20 MG PO QDAILY) Medical Record Reviewed: Yes Mental Status Examination - Cognitive Function Orientation: Place, Situation, Time Memory: Intact Attention: WNL Concentration: Poor Fund of Knowledge: Poor - Mood Mood: Depressed, Anxious - Affect Affect: Constricted, Depressed - Speech Speech: Appropriate - Formal Thought Process Formal Thought Process: Hallucinations, Delusions, Paranoia - Suicidal Ideation Suicidal Ideation: No - Homicidal Ideation Homicidal Ideation: No Goal/Treatment Plan - Goal/Treatment Plan Need for Continued Stay: Severe depression anxiety, Severe functional impairment Progress Toward Problem(s) and Goals/Treatment Plan: BIPOLAR DISORDER MRE DEPRESSED SEVERE WITH PSYCHOTIC FEATURES ABILIFY WELLBUTRIN DEPAKOTE TRAZODONE NEURONTIN [place] CBT SUPPORTIVE PSYCHOTHERAPY GROUP MILIEU AND RECREATIONAL THERAPY Estimated Date of D/C: 11/03/17 - Smoking Cessation Smoking Cessation Initiated: No
[2017-11-02 06:43] VITALS: RESP 20
[2017-11-02] MEDS: Pantoprazole 20 mg EC Tab PO SCH (09:32)
[2017-11-02] MEDS: buPROPion 150 mg/24 Hours XL Tab PO SCH (09:32)
[2017-11-02] MEDS: Divalproex 500 mg DR Tab PO SCH ×2 (09:33→17:34)
--- NOTE | 2017-11-03 00:54 | PCM.PYCHPN ---
Psychiatric Progress Note - Psychiatric Progress Note Patient seen today, length of contact: 15 min Patient Chief Complaint: I,M STILL HEARING VOICES Problems Identified/Issues Discussed: PT SEEN AND EXAMINED DISCUSSED WITH STAFF DISCUSSED WITH PT HOW TO COPE WITH THE HALLUCINATIONS AND NECESSITY OF MEDICATION ADHERENCE Medical Problems: NONE NOTED OR REPORTED Diagnostic Results: REVIEWED Medication Change: No Medical Record Reviewed: Yes Mental Status Examination - Cognitive Function Orientation: Place, Situation, Time Memory: Intact Attention: WNL Concentration: WNL Association: WNL Fund of Knowledge: WNL - Mood Mood: Depressed, Anxious - Affect Affect: Constricted, Depressed - Speech Speech: Appropriate - Formal Thought Process Formal Thought Process: Hallucinations, Delusions, Paranoia - Suicidal Ideation Suicidal Ideation: No - Homicidal Ideation Homicidal Ideation: No Goal/Treatment Plan - Goal/Treatment Plan Need for Continued Stay: Severe depression anxiety, Severe functional impairment Progress Toward Problem(s) and Goals/Treatment Plan: BIPOLAR DISORDER MRE DEPRESSED SEVERE WITH PSYCHOTIC FEATURES ABILIFY WELLBUTRIN DEPAKOTE TRAZODONE NEURONTIN [place] CBT SUPPORTIVE PSYCHOTHERAPY GROUP MILIEU AND RECREATIONAL THERAPY Estimated Date of D/C: 11/03/17 - Smoking Cessation Smoking Cessation Initiated: No
[2017-11-03 06:16] VITALS: BP 125/76; PULSE 84; TEMP 97.4; O2SAT 97
[2017-11-03] MEDS: buPROPion 150 mg/24 Hours XL Tab PO SCH (10:07)
[2017-11-03] MEDS: Divalproex 500 mg DR Tab PO SCH (10:07)
[2017-11-03] MEDS: Pantoprazole 20 mg EC Tab PO SCH (10:07)
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
== END 2017-11-03 12:03 | disposition home or self-care (01) | DRG 750 ==
LOC: C.ER 13:46 → C.5E 16:46
PROVIDERS: ADMIT Psychiatry & Neurology Psychiatry; ATTEND Psychiatry & Neurology Psychiatry
PROC: GZHZZZZ Group Psychotherapy (ICD-10-PCS; principal; 2017-10-28)
PROC: GZ56ZZZ Individual Psychotherapy, Supportive (ICD-10-PCS; 2017-10-28)
DX: F10.120 Alcohol abuse with intoxication, uncomplicated (principal); F31.5 Bipolar disorder, current episode depressed, severe, with psychotic features; Y90.1 Blood alcohol level of 20-39 mg/100 ml; F43.10 Post-traumatic stress disorder, unspecified; G47.30 Sleep apnea, unspecified; I10 Essential (primary) hypertension; N40.0 Benign prostatic hyperplasia without lower urinary tract symptoms; R45.851 Suicidal ideations; Z87.891 Personal history of nicotine dependence

== ENCOUNTER 2018-01-21 10:20 | Inpatient (IN) | payer MEDICAID ==
[2018-01-21 10:54] VITALS: BMI 31.6
[2018-01-21 12:33] LABS: BASO # 0.1 K/uL (0.0-0.2); BASO % 1.1 % (0.0-2.0); EOS # 0.2 K/uL (0.0-0.7); EOS % 2.2 % (0.0-4.0); HEMOGLOBIN 13.8 g/dL (12.0-18.0); LYMPH # 1.6 K/uL (1.0-4.3); LYMPH % 22.6 % (20.0-40.0); MEAN CELL VOLUME 79.1 fL (80.0-94.0); MEAN CORPUSCULAR HEMOGLOBIN 25.6 pg (27.0-31.0); MEAN CORPUSCULAR HGB CONC 32.3 g/dL (33.0-37.0); MEAN PLATELET VOLUME 9.4 fL (7.2-11.7); MONO # 0.3 K/uL (0.0-0.8); MONO % 4.8 % (0.0-10.0); NEUT % 69.3 % (50.0-75.0); NRBC % 0.1 % (0.0-2.0); RBC 5.4 Mil/uL (4.40-5.90); WHITE BLOOD COUNT 7.2 K/uL (4.8-10.8)
[2018-01-21 12:35] LABS: URINE BILIRUBIN NEGATIVE (NEGATIVE); URINE CLARITY Clear (Clear); URINE COLOR YELLOW (YELLOW); URINE GLUCOSE (UA) NORMAL (Normal)
[2018-01-21 12:36] LABS: BARBITURATES, UR NEGATIVE (NEGATIVE); BENZODIAZEPINES, UR NEGATIVE (NEGATIVE); OPIATES, UR NEGATIVE (NEGATIVE); PHENCYCLIDINE, UR NEGATIVE (NEGATIVE); SQUAMOUS EPITHIAL < 1 /hpf (0-5); URINE BLOOD NEGATIVE (NEGATIVE); URINE LEUKOCYTE ESTERASE NEGATIVE Leu/uL (Negative); URINE PROTEIN 1+ mg/dL (NEGATIVE); URINE UROBILINOGEN NORMAL mg/dL (0.2-1.0)
--- NOTE | 2018-01-21 12:53 | C.PDOC ---
History Of Present Illness 52 year old male with PMH HTN and BPH presents to the ED for evaluation of depression and suicidal ideation. Patient reports he ran out of his chronic medications 6 days ago, since then has been having trouble sleeping, and recently feeling suicidal. Also admits to taking 2 shots of ETOH to help hims sleep. (+) hallucination. Denies drug use, homicidal ideation, fever, nausea, vomiting, chest pain, sob, abdominal pain, headache, dizziness and any other associated symptoms. Admits not taking his chronic medication including for htn. No h/o seizures. Time Seen by Provider: 01/21/18 10:55 Chief Complaint (Nursing): Psychiatric Evaluation History Per: Patient History/Exam Limitations: no limitations Current Symptoms Are (Timing): Still Present Past Medical History Reviewed: Historical Data, Nursing Documentation, Vital Signs Vital Signs: Last Vital Signs Temp 98 F 01/21/18 10:53 Pulse 102 H 01/21/18 10:53 Resp 18 01/21/18 10:53 BP 145/96 H 01/21/18 10:53 Pulse Ox 96 01/21/18 10:53 - Medical History PMH: Anemia, Anxiety, Arthritis, Benign Prostatic Hyperplasia, Bipolar Disorder, Depression, Diverticulitis (Dx 2015), Gastritis, HTN, Post Traumatic Stress Disorder, Schizophrenia, Seizures (ETOH), Sleep Apnea Denies: Diabetes, Hepatitis, HIV, Chronic Kidney Disease, Sexually Transmitted Disease Surgical History: Cholecystectomy (July 2016) - [facility] Procedures ALCOHOL DETOXIFICATION (04/14/14) DETOXIFICATION SERVICES FOR SUBSTANCE ABUSE TREATMENT (11/10/16) GROUP HEMMING AND TACKING MACHINE OPERATOR FOR SUBSTANCE ABUSE TREATMENT, PSYCHOEDUCATION (08/20/16) GROUP PSYCHOTHERAPY (10/28/17) INDIV PSYCHOTHERAPY FOR SUBSTANCE ABUSE TREATMENT, SUPPORT (09/05/16) INDIV PSYCHOTHERAPY FOR SUBSTANCE ABUSE, COGNITIV BEHAVIORAL (09/05/16) INDIV PSYCHOTHERAPY FOR SUBSTANCE ABUSE, PSYCHOEDUCATION (09/05/16) INDIVIDUAL PSYCHOTHERAPY, COGNITIVE-BEHAVIORAL (08/26/17) INDIVIDUAL PSYCHOTHERAPY, SUPPORTIVE (10/28/17) MEDICATION MANAGEMENT (08/20/16) Family History: States: Unknown Family Hx - Social History Hx Tobacco Use: Yes Hx Alcohol Use: Yes Hx Substance Use: No - Immunization History Hx Tetanus Toxoid Vaccination: No Hx Influenza Vaccination: No Hx Pneumococcal Vaccination: No Review Of Systems Except As Marked, All Systems Reviewed And Found Negative. Constitutional: Negative for: Fever Gastrointestinal: Negative for: Nausea, Vomiting Neurological: Negative for: Other ((-) drug use.) Psych: Positive for: Depression, Suicidal ideation. Negative for: Other ((-) ho micidal ideations.) Physical Exam - Physical Exam Appears: Well, Non-toxic, No Acute Distress Skin: Normal Color, Warm, Dry Head: Atraumatic, Normacephalic Eye(s): bilateral: Normal Inspection, EOMI Nose: Normal Oral Mucosa: Moist Neck: Normal ROM, Supple Chest: Symmetrical, No Deformity Cardiovascular: Rhythm Regular Respiratory: Normal Breath Sounds, No Rales, No Rhonchi, No Wheezing Gastrointestinal/Abdominal: Normal Exam, Soft, No Tenderness Extremity: Normal ROM Neurological/Psych: Oriented x3, Normal Speech Gait: Steady ED Course And Treatment - Laboratory Results Result Diagrams: 01/21/18 12:27 01/21/18 12:27 O2 Sat by Pulse Oximetry: 96 (RA) Pulse Ox Interpretation: Normal Progress Note: Plan: Blood sent. Urinalysis. K-Dur 20. Patient was seen and evaluated by a elementary school social worker who spoke with Dr. Vuong and agreed upon admission. Pt is medically cleared for psychiatric admission, instructed to restart all his chronic medication for HTN and BPH. Disposition - Disposition Disposition: HOSPITALIZED Disposition Time: 15:30 Condition: STABLE - Clinical Impression Clinical Impression: Moderate major depression, single episode, Schizophrenia - PA / FLOOR INSPECTOR / Resident Statement MD/DO has reviewed & agrees with the documentation as recorded. - Scribe Statement The provider has reviewed the documentation as recorded by the Scribe (Sabrina damian) All medical record entries made by the Scribe were at my direction and personally dictated by me. I have reviewed the chart and agree that the record accurately reflects my personal performance of the history, physical exam, medical decision making, and the department course for this patient. I have also personally directed, reviewed, and agree with the discharge instructions and disposition.
[2018-01-21 13:00] LABS: BLOOD UREA NITROGEN 7 mg/dL (9-20); GFR NON-AFRICAN AMERICAN > 60
[2018-01-21 13:01] LABS: ALB/GLOB RATIO 1.2 (1.0-2.1); ALBUMIN 4.7 g/dL (3.5-5.0); ALT/SGPT 26 U/L (21-72); AST/SGOT 42 U/L (17-59); CALCIUM 9.2 mg/dl (8.6-10.4)
[2018-01-21] MEDS ORDERED: Potassium Chloride 20 mEq ER Tab PO STA (13:06)
--- NOTE | 2018-01-21 15:07 | PCM.BM ---
<MiladAntoine Ana - Last Filed: 01/21/18 15:04> Treatment Plan Problems - Problems identified on initial assessmt Suicidal Ideation Date Initiated: 01/21/18 Time Initiated: 15:05 Assessment reference: NA Status: Monitor Depression Date Initiated: 01/21/18 Time Initiated: 15:05 Assessment reference: NA Status: Active Treatment assets and liabiliti Patient Assests: adapts well, cooperative, insightful, motivated, resourceful, self-reliant, ADL independent, good support system, negotiates basic needs, cognitively intact ( ), good interpersonal skills Patient Liabilities: substance abuse, medical problems - Milieu Protocol Maintain good personal hygiene: daily Encourage regular showers, daily Remind patient to perform daily oral care, daily Assist patient to perform ADL's Conduct patient checks and document Observation sheet: Q15 minutes Maintain personal safety: every shift Educate patient to report safety concerns to staff, every shift Monitor environment for contraband/sharps Medication safety: Monitor for expected outcome, potential side effects: every shift, Assess barriers to learning: every shift, Assess readiness for medication education: every shift <Elidia Vuong - Last Filed: 01/23/18 10:51> - Diagnosis (1) Major depression Status: Acute Interventions: 01/23/18 10:51 * Assess/adjust medications daily and /or as needed * See patient on an individual basis 7x/week to assess symptoms of depression * Monitor for side effects & effectiveness of medications * (2) Alcohol abuse Status: Acute Interventions: 01/23/18 10:52 * Assess/adjust medications daily and /or as needed * See patient on an individual basis 7x/week to assess symptoms of depression * Monitor for side effects & effectiveness of medications * <Jocelyn Rooney - Last Filed: 01/23/18 11:26> Family Contact Family involvement: Famliy/SO not involved - Goals for Treatment Patient goals for treatment: "I need a partial care program." Discharge/Continuing Care - Education Needs Education Needs: Patient Medication, Patient Coping Skills - Discharge Discharge Criteria: Tolerates medication w/o severe side effects, Free of Suicidal thoughts, No longer exhibiting s/s of withdrawal Discharge to:: Home - Treatment Team Participation Discussed with Family/SO: No Was Patient/Family/SO present at Treatment Team Meeting: Yes
--- NOTE | 2018-01-22 09:44 | PCM.PSYCH ---
Initial Psychiatric Evaluation - Initial Psychiatric Evaluation Type of Admission: Voluntary Legal Status: Capacity Chief Complaint (in patient's own words): I was feeling depressed and suicidal.' History of Present Illness and Precipitating Events: Patient is a 52 year old S AAM, Unemployed, came to the [facility] reported depressed mood and suicidal ideation. Fisher Scallop is familiar with this patient. Patient was just discharged from [facility] few weeks ago. As per the patient, he relapsed on drinking, soon after discharge. He went to the nearest hospital for detox, however he was ended up in ICU. As per the patient, the doctor stopped all his medications in the ICU. As per him as soon as he came outside, he started becoming increasingly depressed and yesterday he started hearing voices and developed suicidal ideation. So he came to the hospital to get help. Patient reports depressed mood, feelings of hopelessness and helplessness, poor sleep and poor appetite. He denies any racing thoughts, irritability, and agitation. He reports of drinking couple of beers. However he denies any withdrawal symptoms. He reports auditory hallucinations noncommand type and visual hallucinations stating he see's shadows of people. Patient however denied any homicidal ideations. He denies any other drug use. PMH: HTN Current Medications: Active Medications Generic Name Dose Route Start Last Admin Trade Name Freq PRN Reason Stop Dose Admin Amlodipine Besylate 5 mg 01/22/18 10:00 01/22/18 09:39 Norvasc PO 5 mg DAILY MARI Administration Hydroxyzine HCl 25 mg 01/21/18 15:18 Atarax PO Q6 PRN Agitation Pneumococcal Polyvalent Vaccine 0.5 ml 01/24/18 10:00 Pneumovax 23 Vaccine IM 01/24/18 10:01 .ONCE ONE Quetiapine Fumarate 200 mg 01/21/18 22:00 01/21/18 22:12 Seroquel PO 200 mg HS MARI Administration Tamsulosin HCl 0.4 mg 01/21/18 22:00 01/21/18 22:12 Flomax PO 0.4 mg HS MARI Administration Trazodone HCl 100 mg 01/21/18 22:00 01/21/18 22:12 Desyrel PO 100 mg HS MARI Administration Past Psychiatric History - Past Psychiatric History Previous Treatment History: Inpatient Pertinent Medical Hx (Current Medical&Sleep Prob, Allergies): Allergies Allergy/AdvReac Type Severity Reaction Status Date / Time No Known Allergies Allergy Verified 01/21/18 10:53 Quetiapine Fumarate [Seroquel] 400 mg PO BID 10/07/17 amLODIPine [Norvasc] 5 mg PO DAILY 10/07/17 Gabapentin [Neurontin] 600 mg PO TID 01/21/18 Tamsulosin [Flomax] 0.4 mg PO TID 01/21/18 Review of Systems - Review of Systems All systems: reviewed and no additional remarkable complaints except - Psychiatric Psychiatric: Anxiety, Hopelessness, Irritability, Mood Swings, Paranoia, Suicidal Ideation Mental Status Examination - Personal Presentation Personal Presentation: Looks stated age - Affect Affect: Constricted, Depressed - Motor Activity Motor Activity: Calm - Reliability in Providing Information Reliability in Providing Information: Poor, due to alteration in thoughts - Speech Speech: Disorganized - Mood Mood: Depressed, Anxious - Formal Thought Process Formal Thought Process: Hallucinations, Delusions, Paranoia - Obsessions/Compulsions Obsessions: No Compulsions: No - Cognitive Functions Orientation: Person, Place, Situation, Time Sensorium: Alert Attention/Concentration: Attentive Abstract Thinking: [place] Estimate of Intelligence: Below average Judgement: Imparied, as evidence by: Poor judgement - Risk Risk: Suicidal, Diminished functioning - Limitations Limitations: Living alone DSM 5 DX - DSM 5 DSM 5 Diagnosis: Bipolar disorder MRE depressed severe with psychotic features Alcohol use disorder severe - Recommended/Plan of Treatment Treatment Recommendations and Plan of Treatment: Bipolar disorder MRE depressed severe with psychotic features CBT Psychoeducation Supportive therapy, group therapy, individual therapy Hydroxyzine 25 mg by mouth every 6 hours when necessary Seroquel 50 mg PO QHS Gabapentin 100 mg po TID Trazodone Alcohol use disorder severe CBT Psychoeducation Supportive therapy, individual therapy Use NM for abstinence Librium prn - Smoking Cessation Smoking Cessation Initiated: No
--- NOTE | 2018-01-23 10:30 | PCM.PYCHPN ---
Psychiatric Progress Note - Psychiatric Progress Note Patient seen today, length of contact: 15 min Patient Chief Complaint: I was feeling depressed.' Problems Identified/Issues Discussed: Patient seen and evaluated, chart reviewed and discussed with the nurse. Pt reports depressed mood, and reports feelings of hopelessness and helplessness. He still reports irritability and agitation. He remained isolated and withdrawn, and confined to his room. He reports au ditory hallucinations, and paranoia. Patient is compliant with medications and denies any side effects. Symptoms are improving but pt needs more time to stabilize. Support and psychoeducation given. Medication Change: Yes Medical Record Reviewed: Yes Mental Status Examination - Cognitive Function Orientation: Person, Place, Situation, Time Memory: Intact Attention: WNL Concentration: Poor Association: WNL Fund of Knowledge: Poor - Mood Mood: Depressed, Anxious - Affect Affect: Constricted, Depressed - Formal Thought Process Formal Thought Process: Hallucinations, Delusions, Paranoia - Suicidal Ideation Suicidal Ideation: No - Homicidal Ideation Homicidal Ideation: No Goal/Treatment Plan - Goal/Treatment Plan Need for Continued Stay: Severe depression anxiety, Severe functional impairment Progress Toward Problem(s) and Goals/Treatment Plan: Bipolar disorder MRE depressed severe with psychotic features CBT Psychoeducation Supportive therapy, group therapy, individual therapy Hydroxyzine 25 mg by mouth every 6 hours when necessary Seroquel 200 mg PO QHS Gabapentin 300 mg po TID Trazodone 100 mg Abilify 5 mg Alcohol use disorder severe CBT Psychoeducation Supportive therapy, individual therapy Use MD for abstinence Librium prn - Smoking Cessation Smoking Cessation Initiated: No
[2018-01-24] MEDS ORDERED: Pneumococcal 23-Valent Vaccine IM ONE (10:00)
[2018-01-25 07:24] VITALS: O2SAT 95
--- NOTE | 2018-01-26 05:13 | PCM.PYCHPN ---
Psychiatric Progress Note - Psychiatric Progress Note Patient seen today, length of contact: 15 min Patient Chief Complaint: I DON'T LIKE THE PAXIL I DO BETTER ON CELEXA Problems Identified/Issues Discussed: PT SEEN AND EXAMINED DISCUSSED WITH TFF D/W PT DIFFERENCES AMONG SSRIS AND MOOD STABILIZERS Medical Problems: NOTHING ACUTE Diagnostic Results: REVIEWED DSM 5 Symptoms Update: LESS PARANOIA Medication Change: Yes (CELEXA INCREASE NEURONTIN) Medical Record Reviewed: Yes Mental Status Examination - Cognitive Function Orientation: Person, Place, Situation, Time Memory: Intact Attention: WNL Concentration: WNL Association: WNL Fund of Knowledge: WNL - Mood Mood: Depressed, Anxious - Affect Affect: Constricted, Depressed - Formal Thought Process Formal Thought Process: Delusions, Paranoia - Suicidal Ideation Suicidal Ideation: No - Homicidal Ideation Homicidal Ideation: No Goal/Treatment Plan - Goal/Treatment Plan Need for Continued Stay: Severe depression anxiety, Discharge may exacerbated symptoms, Severe functional impairment Progress Toward Problem(s) and Goals/Treatment Plan: BIPOLAR DISORDER CELEXA SEROQUEL ALCOHOL USE DISORDER TX CBT GROUP MILIEU RECREATIONAL THERAPY SUPPORTIVE PSYCHOTHERAPY - Smoking Cessation Smoking Cessation Initiated: No
--- NOTE | 2018-01-26 05:20 | PCM.PYCHPN ---
Psychiatric Progress Note - Psychiatric Progress Note Patient seen today, length of contact: 15 min Patient Chief Complaint: I'M THINKING ABOUT USIN ALCOHOL AND MARIJUANA Problems Identified/Issues Discussed: PT SEEN AND EXAMINED DISCUSSED WITH TFF D/W PT THAT CRAVINGS IN EARLY RECOVERY ARE NOT UNCOMMON Medical Problems: NOTHING ACUTE Diagnostic Results: REVIEWED Medication Change: Yes (INCREAE SEROQUEL AND NEURONTIN) Medical Record Reviewed: Yes Mental Status Examination - Cognitive Function Orientation: Person, Place, Situation, Time Memory: Intact Attention: WNL Concentration: WNL Association: WNL Fund of Knowledge: WNL - Mood Mood: Depressed, Anxious - Affect Affect: Constricted, Depressed - Speech Speech: Appropriate - Formal Thought Process Formal Thought Process: Delusions, Paranoia - Suicidal Ideation Suicidal Ideation: No - Homicidal Ideation Homicidal Ideation: No Goal/Treatment Plan - Goal/Treatment Plan Need for Continued Stay: Severe depression anxiety, Discharge may exacerbated symptoms, Severe functional impairment Progress Toward Problem(s) and Goals/Treatment Plan: BIPOLAR DISORDER CELEXA SEROQUEL NEURONTIN ALCOHOL USE DISORDER MO CBT GROUP MILIEU RECREATIONAL THERAPY SUPPORTIVE PSYCHOTHERAPY - Smoking Cessation Smoking Cessation Initiated: No
--- NOTE | 2018-01-26 11:58 | PCM.PYCHPN ---
Psychiatric Progress Note - Psychiatric Progress Note Patient seen today, length of contact: 15 min Patient Chief Complaint: I was feeling depressed.' Problems Identified/Issues Discussed: Patient seen and evaluated, chart reviewed and discussed with the nurse. Pt reports depressed mood, and reports feelings of hopelessness and helplessness. He still reports irritability and agitation. He remained isolated and withdrawn, and confined to his room. He reports au ditory hallucinations, and paranoia. Patient is compliant with medications and denies any side effects. Symptoms are improving but pt needs more time to stabilize. Support and psychoeducation given. Medication Change: Yes (INCREAE SEROQUEL AND NEURONTIN) Medical Record Reviewed: Yes Mental Status Examination - Cognitive Function Orientation: Person, Place, Situation, Time Memory: Intact Attention: WNL Concentration: WNL Association: WNL Fund of Knowledge: WNL - Mood Mood: Depressed, Anxious - Affect Affect: Constricted, Depressed - Speech Speech: Appropriate - Formal Thought Process Formal Thought Process: Delusions, Paranoia - Suicidal Ideation Suicidal Ideation: No - Homicidal Ideation Homicidal Ideation: No Goal/Treatment Plan - Goal/Treatment Plan Need for Continued Stay: Severe depression anxiety, Discharge may exacerbated symptoms, Severe functional impairment Progress Toward Problem(s) and Goals/Treatment Plan: Bipolar disorder MRE depressed severe with psychotic features CBT Psychoeducation Supportive therapy, group therapy, individual therapy Hydroxyzine 25 mg by mouth every 6 hours when necessary Seroquel 200 mg PO QHS Gabapentin 300 mg po TID Trazodone 100 mg Abilify 5 mg Alcohol use disorder severe CBT Psychoeducation Supportive therapy, individual therapy Use ME for abstinence Librium prn
[2018-01-28] MEDS: Aluminum Hydroxide/Magnesium Hydroxide Susp (30 mL) PO PRN (14:17)
[2018-01-29] MEDS: Aluminum Hydroxide/Magnesium Hydroxide Susp (30 mL) PO PRN (11:14)
--- NOTE | 2018-01-29 13:36 | PCM.PYCHPN ---
Psychiatric Progress Note - Psychiatric Progress Note Patient seen today, length of contact: 15 min Patient Chief Complaint: I m feeling little better.' Problems Identified/Issues Discussed: Patient seen and evaluated, chart reviewed and discussed with the nurse. Pt reports some improvement in the depressed mood, and feelings of hopelessness and helplessness. He remained isolated and withdrawn, and confined to his room. He reports auditory hallucinations, and paranoia. Patient is compliant with medications and denies any side effects. Symptoms are improving but pt needs more time to stabilize. Support and psychoeducation given. Medication Change: Yes (INCREAE SEROQUEL AND NEURONTIN) Medical Record Reviewed: Yes Mental Status Examination - Cognitive Function Orientation: Person, Place, Situation, Time Memory: Intact Attention: WNL Concentration: WNL Association: WNL Fund of Knowledge: WNL - Mood Mood: Depressed, Anxious - Affect Affect: Constricted, Depressed - Speech Speech: Appropriate - Formal Thought Process Formal Thought Process: Delusions, Paranoia - Suicidal Ideation Suicidal Ideation: No - Homicidal Ideation Homicidal Ideation: No Goal/Treatment Plan - Goal/Treatment Plan Need for Continued Stay: Severe depression anxiety, Discharge may exacerbated symptoms, Severe functional impairment Progress Toward Problem(s) and Goals/Treatment Plan: Bipolar disorder MRE depressed severe with psychotic features CBT Psychoeducation Supportive therapy, group therapy, individual therapy Hydroxyzine 25 mg by mouth every 6 hours when necessary Seroquel 200 mg PO QHS Gabapentin 300 mg po TID Trazodone 100 mg Abilify 5 mg Alcohol use disorder severe CBT Psychoeducation Supportive therapy, individual therapy Use [place] for abstinence Librium prn
--- NOTE | 2018-01-30 09:53 | PCM.BM ---
<Denisse Garrison - Last Filed: 01/30/18 09:52> Treatment Plan Problems - Problems identified on initial assessmt Suicidal Ideation Date Initiated: 01/21/18 Time Initiated: 15:05 Assessment reference: NA Status: Monitor Depression Date Initiated: 01/21/18 Time Initiated: 15:05 Assessment reference: NA Status: Active Treatment assets and liabiliti Patient Assests: adapts well, cooperative, insightful, motivated, resourceful, self-reliant, ADL independent, good support system, negotiates basic needs, cognitively intact ( ), good interpersonal skills Patient Liabilities: substance abuse, medical problems - Milieu Protocol Maintain good personal hygiene: daily Encourage regular showers, daily Remind patient to perform daily oral care, daily Assist patient to perform ADL's Conduct patient checks and document Observation sheet: Q15 minutes Maintain personal safety: every shift Educate patient to report safety concerns to staff, every shift Monitor environment for contraband/sharps Medication safety: Monitor for expected outcome, potential side effects: every shift, Assess barriers to learning: every shift, Assess readiness for medication education: every shift Milieu Narrative: Bipolar disorder MRE depressed severe with psychotic features CBT Psychoeducation Supportive therapy, group therapy, individual therapy Hydroxyzine 25 mg by mouth every 6 hours when necessary Seroquel 200 mg PO QHS Gabapentin 300 mg po TID Trazodone 100 mg Abilify 5 mg Alcohol use disorder severe CBT Psychoeducation Supportive therapy, individual therapy Use MA for abstinence Librium prn Family Contact Family involvement: Famliy/SO not involved - Goals for Treatment Patient goals for treatment: "I need a partial care program." Discharge/Continuing Care - Education Needs Education Needs: Patient Medication, Patient Coping Skills - Discharge Discharge Criteria: Tolerates medication w/o severe side effects, Free of Suicidal thoughts, No longer exhibiting s/s of withdrawal Discharge to:: Home - Treatment Team Participation Patient/Family/SO Statement: Bipolar disorder MRE depressed severe with psychotic features CBT Psychoeducation Supportive therapy, group therapy, individual therapy Hydroxyzine 25 mg by mouth every 6 hours when necessary Seroquel 200 mg PO QHS Gabapentin 300 mg po TID Trazodone 100 mg Abilify 5 mg Alcohol use disorder severe CBT Psychoeducation Supportive therapy, individual therapy Use MA for abstinence Librium prn Discussed with Family/SO: No Was Patient/Family/SO present at Treatment Team Meeting: Yes Treatment Plan Review - Problem Suicidal Ideation Time Initiated: 15:05 Depression Time Initiated: 15:05 - Discharge / Continuing Care Discharge to:: Home Behavioral Health Services: Partial hospital Health Needs: Follow up care/test, Medications/Rx <VestavikasEwa - Last Filed: 01/30/18 12:45> - Milieu Protocol Maintain good personal hygiene: daily Encourage regular showers, daily Remind patient to perform daily oral care, daily Assist patient to perform ADL's Conduct patient checks and document Observation sheet: Q15 minutes Maintain personal safety: every shift Educate patient to report safety concerns to staff, every shift Monitor environment for contraband/sharps Medication safety: Monitor for expected outcome, potential side effects: every shift, Assess barriers to learning: every shift, Assess readiness for medication education: every shift Treatment Plan Review - Problem Suicidal Ideation Date Initiated: 01/30/18 Progress toward outcomes: improved Depression Date Initiated: 01/30/18 Progress toward outcomes: improved
[2018-01-30] MEDS: Aluminum Hydroxide/Magnesium Hydroxide Susp (30 mL) PO PRN (14:50)
--- NOTE | 2018-01-30 17:53 | PCM.PYCHPN ---
Psychiatric Progress Note - Psychiatric Progress Note Patient seen today, length of contact: 15 min Patient Chief Complaint: "I'm worried" Medication Change: Yes (INCREAE SEROQUEL AND NEURONTIN) Medical Record Reviewed: Yes Mental Status Examination - Cognitive Function Orientation: Person, Place, Situation, Time Memory: Intact Attention: WNL Concentration: WNL Association: WNL Fund of Knowledge: WNL - Mood Mood: Depressed, Anxious - Affect Affect: Constricted, Depressed - Speech Speech: Appropriate - Formal Thought Process Formal Thought Process: Delusions, Paranoia - Suicidal Ideation Suicidal Ideation: No - Homicidal Ideation Homicidal Ideation: No Goal/Treatment Plan - Goal/Treatment Plan Need for Continued Stay: Severe depression anxiety, Discharge may exacerbated symptoms, Severe functional impairment
[2018-01-31 08:54] VITALS: TEMP 97.6
--- NOTE | 2018-01-31 13:18 | PCM.PYCHPN ---
Psychiatric Progress Note - Psychiatric Progress Note Patient seen today, length of contact: 15 min Patient Chief Complaint: "I'm worried" Medication Change: Yes Medical Record Reviewed: Yes Mental Status Examination - Cognitive Function Orientation: Person, Place, Situation, Time Memory: Intact Attention: WNL Concentration: WNL Association: WNL Fund of Knowledge: WNL - Mood Mood: Depressed, Anxious - Affect Affect: Constricted, Depressed - Speech Speech: Appropriate - Formal Thought Process Formal Thought Process: Delusions, Paranoia - Suicidal Ideation Suicidal Ideation: No - Homicidal Ideation Homicidal Ideation: No Goal/Treatment Plan - Goal/Treatment Plan Need for Continued Stay: Severe depression anxiety, Discharge may exacerbated symptoms, Severe functional impairment
[2018-02-01] MEDS: Vitamins A & D Oint UD Foilpak TOP SCH (17:19)
[2018-02-01] MEDS: Aluminum Hydroxide/Magnesium Hydroxide Susp (30 mL) PO PRN (20:12)
--- NOTE | 2018-02-01 23:43 | PCM.PYCHPN ---
Psychiatric Progress Note - Psychiatric Progress Note Patient seen today, length of contact: 15 min Patient Chief Complaint: I'm feeling better. Problems Identified/Issues Discussed: Patient seen, chart reviewed, case discussed with the staff. Issues related to illness and treatment were discussed with the patient and staff. Reported compliant with treatment with no adverse effects. Tolerating treatment very well. Awake, alert and oriented x3. Calm and cooperative with good eye contact. Mood reported as okay. Affect appropriate. Treatment discussed with the patient. Needs more time for stabilization. Aftercare discussed with the patient. Denied any delusions, auditory or visual hallucinations, suicidal ideations or homicidal ideations at the time of evaluation. Medical Problems: Hypertension Diagnostic Results: Reviewed DSM 5 Symptoms Update: Some improvement with treatment Medication Change: No Medical Record Reviewed: Yes Mental Status Examination - Cognitive Function Orientation: Person, Place, Situation, Time Memory: Intact Attention: WNL Concentration: WNL Association: [facility] Fund of Knowledge: [facility] Decription of patient's judgement and insights: Fair - Mood Mood: Neutral - Affect Affect: Other (Appropriate) - Speech Speech: Appropriate - Formal Thought Process Formal Thought Process: No Impairment Psychotic Thoughts and Behaviors: None - Suicidal Ideation Suicidal Ideation: No - Homicidal Ideation Homicidal Ideation: No Goal/Treatment Plan - Goal/Treatment Plan Need for Continued Stay: Remain at risks for inpatient hospitalization, Discharge may exacerbated symptoms, Severe functional impairment Progress Toward Problem(s) and Goals/Treatment Plan: Some improvement with treatment. Patient/staff education. Supportive therapy. Continue treatment as before. Estimated Date of D/C: 02/02/18 - Smoking Cessation Smoking Cessation Initiated: No
[2018-02-02 07:59] VITALS: BP 139/89; PULSE 99; RESP 20
[2018-02-02] MEDS: Vitamins A & D Oint UD Foilpak TOP SCH (09:13)
--- NOTE | 2018-02-02 21:25 | PCM.PYCHDC ---
Mental Status Examination - Mental Status Examination Orientation: Person, Place, Situation, Time Memory: Intact Mood: Neutral Affect: Other (Appropriate) Speech: Appropriate Attention: WNL Concentration: WNL Association: WNL Fund of Knowledge: WNL Formal Thought Process: No Impairment Description of patient's judgement and insight: Fair Psychotic Thoughts and Behaviors: None Suicidal Ideation: No Current Homicidal Ideation?: No Discharge Summary - Discharge Note Reason for Hospitalization: Bipolar disorder depressed Alcohol use disorder Laboratory Data: Reviewed Consultations:: List each consultation separately and include: 1. Reason for request. 2. Findings. 3. Follow-up Summary of Hospital Course include:: 1. Description of specific treatment plan utilized for patients during their course of treatmen. 2. Summarize the time-course for resolution of acute symptoms and/or regressed behaviors. 3. Describe issues identified and worked on during hospitalization. 4. Describe medication utilized. 5. Describe medical problems identified and treated. 6. Reassessment of suicide risk Summary of Hospital Course: Patient is a 52 year old S AAM, Unemployed, came to the [facility] reported depressed mood and suicidal ideation. Roll Weigher is familiar with this patient. Patient was just discharged from [facility] few weeks ago. As per the patient, he relapsed on drinking, soon after discharge. He went to the nearest hospital for detox, however he was ended up in ICU. As per the patient, the doctor stopped all his medications in the ICU. As per him as soon as he came outside, he started becoming increasingly depressed and yesterday he started hearing voices and developed suicidal ideation. So he came to the hospital to get help. Patient reports depressed mood, feelings of hopelessness and helplessness, poor sleep and poor appetite. He denies any racing thoughts, irritability, and agitation. He reports of drinking couple of beers. However he denies any withdrawal symptoms. He reports auditory hallucinations noncommand type and visual hallucinations stating he see's shadows of people. Patient however denied any homicidal ideations. He denies any other drug use. PMH: HTN During his stay in the hospital patient was treated with Celexa, Seroquel, BuSpar and other when necessary medications. Patient was also treated for his medical problems. Patient was attending groups and other activities on the unit. With above treatment patient started feeling better. Today patient was stable and ready for discharge from the hospital. At the time of evaluation and discharge, patient was calm and cooperative, awake, alert and oriented 3, had no delusions, no auditory or visual hallucinations, no suicidal ideations or homicidal ideations at the time of evaluation. Patient was discharged in a stable condition. - Final Diagnosis (DSM 5) Condition upon Discharge: STABLE Disposition: HOME/ ROUTINE Follow-up Treatment Plan: Patient will go to [facility] for follow-up care after discharge from the hospital. Prescriptions/Medication Reconciliation: busPIRone [Buspar] 10 mg PO TID #30 tab Citalopram [celEXA] 20 mg PO DAILY #30 tab Quetiapine Fumarate [Seroquel] 400 mg PO BID #60 tablet traZODone [Desyrel] 100 mg PO HS #30 tab - Smoking Cessation Smoking Cessation Medication prescribed: No - Antipsychotic Medications Pt discharged on 2 or more routine antipsychotic medications: No
== END 2018-02-02 10:38 | disposition home or self-care (01) ==
LOC: C.ER 10:20 → C.5E 14:00
PROVIDERS: ADMIT Psychiatry & Neurology Psychiatry; ATTEND Psychiatry & Neurology Psychiatry
PROC: GZHZZZZ Group Psychotherapy (ICD-10-PCS; principal; 2018-01-21)
PROC: GZ58ZZZ Individual Psychotherapy, Cognitive-Behavioral (ICD-10-PCS; 2018-01-21)
PROC: GZ56ZZZ Individual Psychotherapy, Supportive (ICD-10-PCS; 2018-01-21)
PROC: HZ52ZZZ Individual Psychotherapy for Substance Abuse Treatment, Cognitive-Behavioral (ICD-10-PCS; 2018-01-21)
PROC: HZ59ZZZ Individual Psychotherapy for Substance Abuse Treatment, Supportive (ICD-10-PCS; 2018-01-21)
PROC: HZ56ZZZ Individual Psychotherapy for Substance Abuse Treatment, Psychoeducation (ICD-10-PCS; 2018-01-21)
DX: F32.1 Major depressive disorder, single episode, moderate (principal); F10.10 Alcohol abuse, uncomplicated; F20.9 Schizophrenia, unspecified; I10 Essential (primary) hypertension; R45.851 Suicidal ideations; Z87.891 Personal history of nicotine dependence

== ENCOUNTER 2018-04-17 14:01 | Inpatient (IN) | payer MEDICAID ==
[2018-04-17 14:02] VITALS: BMI 31.6
[2018-04-17 15:03] LABS: BASO # 0.1 K/uL (0.0-0.2); BASO % 1.6 % (0.0-2.0); EOS # 0.2 K/uL (0.0-0.7); EOS % 2.8 % (0.0-4.0); HEMOGLOBIN 13.1 g/dL (12.0-18.0); LYMPH # 1.6 K/uL (1.0-4.3); LYMPH % 29.4 % (20.0-40.0); MEAN CORPUSCULAR HEMOGLOBIN 25.9 pg (27.0-31.0); MEAN CORPUSCULAR HGB CONC 31.6 g/dL (33.0-37.0); MEAN PLATELET VOLUME 8.6 fL (7.2-11.7); MONO # 0.4 K/uL (0.0-0.8); NEUT # 3.2 K/uL (1.8-7.0); NEUT % 58.2 % (50.0-75.0); NRBC % 0.1 % (0.0-2.0); RBC 5.08 Mil/uL (4.40-5.90); RED CELL DISTRIBUTION WIDTH 14.4 % (11.5-14.5); WHITE BLOOD COUNT 5.5 K/uL (4.8-10.8)
[2018-04-17 15:05] LABS: MEAN CELL VOLUME 81.8 fL (80.0-94.0)
[2018-04-17 15:13] LABS: URINE BILIRUBIN NEGATIVE (NEGATIVE); URINE BLOOD NEGATIVE (NEGATIVE); URINE CLARITY Clear (Clear); URINE COLOR Yellow (YELLOW); URINE GLUCOSE (UA) NORMAL (Normal); URINE LEUKOCYTE ESTERASE NEG Leu/uL (Negative); URINE PROTEIN NEGATIVE (NEGATIVE)
[2018-04-17 15:17] LABS: ALB/GLOB RATIO 1.3 (1.0-2.1); ALBUMIN 4.7 g/dL (3.5-5.0); ALT/SGPT 24 U/L (21-72); AST/SGOT 25 U/L (17-59); BLOOD UREA NITROGEN 12 mg/dL (9-20); CALCIUM 9.1 mg/dl (8.6-10.4); GFR NON-AFRICAN AMERICAN > 60
[2018-04-17 15:30] LABS: BARBITURATES, UR NEGATIVE (NEGATIVE); BENZODIAZEPINES, UR NEGATIVE (NEGATIVE); OPIATES, UR NEGATIVE (NEGATIVE); PHENCYCLIDINE, UR NEGATIVE (NEGATIVE)
--- NOTE | 2018-04-17 16:55 | C.PDOC ---
History Of Present Illness 52yo male, with history of alcohol abuse, comes to ER requesting detox from alcohol use. Patient states he drinks 1 to 1.5 pints of liquor per day. He denies any medical complaints at this time. Last alcohol use was this morning. Time Seen by Provider: 04/17/18 14:19 Chief Complaint (Nursing): Substance Abuse History Per: Patient History/Exam Limitations: no limitations Onset/Duration Of Symptoms: Days Current Symptoms Are (Timing): Still Present Additional History Per: Patient Past Medical History Reviewed: Historical Data, Nursing Documentation, Vital Signs Vital Signs: Last Vital Signs Temp 98.3 F 04/17/18 14:13 Pulse 115 H 04/17/18 14:13 Resp 18 04/17/18 14:13 BP 155/98 H 04/17/18 14:13 Pulse Ox 95 04/17/18 14:13 - Medical History PMH: Anemia, Anxiety, Arthritis, Benign Prostatic Hyperplasia, Bipolar Disorder, Depression, Diverticulitis (Dx 2015), Gastritis, HTN, Post Traumatic Stress Disorder, Schizophrenia, Seizures (ETOH), Sleep Apnea Denies: Diabetes, Hepatitis, HIV, Chronic Kidney Disease, Sexually Transmitted Disease Surgical History: Cholecystectomy (July 2016) - [facility] Procedures ALCOHOL DETOXIFICATION (04/14/14) DETOXIFICATION SERVICES FOR SUBSTANCE ABUSE TREATMENT (11/10/16) GROUP SINGE WINDER FOR SUBSTANCE ABUSE TREATMENT, PSYCHOEDUCATION (08/20/16) GROUP PSYCHOTHERAPY (01/21/18) INDIV PSYCHOTHERAPY FOR SUBSTANCE ABUSE TREATMENT, SUPPORT (01/21/18) INDIV PSYCHOTHERAPY FOR SUBSTANCE ABUSE, COGNITIV BEHAVIORAL (01/21/18) INDIV PSYCHOTHERAPY FOR SUBSTANCE ABUSE, PSYCHOEDUCATION (01/21/18) INDIVIDUAL PSYCHOTHERAPY, COGNITIVE-BEHAVIORAL (01/21/18) INDIVIDUAL PSYCHOTHERAPY, SUPPORTIVE (01/21/18) MEDICATION MANAGEMENT (08/20/16) Family History: States: No Known Family Hx - Social History Hx Tobacco Use: Yes Hx Alcohol Use: Yes Hx Substance Use: No - Immunization History Hx Tetanus Toxoid Vaccination: No Hx Influenza Vaccination: No Hx Pneumococcal Vaccination: No Review Of Systems Except As Marked, All Systems Reviewed And Found Negative. Cardiovascular: Negative for: Chest Pain Respiratory: Negative for: Shortness of Breath Gastrointestinal: Negative for: Abdominal Pain Neurological: Negative for: Weakness, Numbness Psych: Negative for: Withdrawal Physical Exam - Physical Exam Appears: Non-toxic, No Acute Distress Skin: Normal Color, Warm Head: Atraumatic, Normacephalic Eye(s): bilateral: Normal Inspection Neck: Normal ROM, Supple Chest: Symmetrical Cardiovascular: Rhythm Regular Respiratory: Normal Breath Sounds Gastrointestinal/Abdominal: Normal Exam, Soft, No Tenderness Back: Normal Inspection Extremity: Normal ROM, No Pedal Edema Neurological/Psych: Oriented x3 ED Course And Treatment - Laboratory Results Result Diagrams: 04/17/18 15:00 04/17/18 15:00 Lab Results: Total Bilirubin 0.4 mg/dL (0.2-1.3) 04/17/18 15:00 AST 25 U/L (17-59) 04/17/18 15:00 ALT 24 U/L (21-72) 04/17/18 15:00 Alkaline Phosphatase 87 U/L (38-126) 04/17/18 15:00 Total Protein 8.3 g/dL (6.3-8.3) 04/17/18 15:00 Albumin 4.7 g/dL (3.5-5.0) 04/17/18 15:00 Globulin 3.6 gm/dL (2.2-3.9) 04/17/18 15:00 Albumin/Globulin Ratio 1.3 (1.0-2.1) 04/17/18 15:00 Urine Color Yellow (YELLOW) 04/17/18 15:00 Urine Clarity Clear (Clear) 04/17/18 15:00 Urine pH 5.0 (5.0-8.0) 04/17/18 15:00 Ur Specific Elma 1.019 (1.003-1.030) 04/17/18 15:00 Urine Protein Negative mg/dL (NEGATIVE) 04/17/18 15:00 Urine Glucose (UA) Normal mg/dL (Normal) 04/17/18 15:00 Urine Ketones Negative mg/dL (NEGATIVE) 04/17/18 15:00 Urine Blood Negative (NEGATIVE) 04/17/18 15:00 Urine Nitrate Negative (NEGATIVE) 04/17/18 15:00 Urine Bilirubin Negative (NEGATIVE) 04/17/18 15:00 Urine Urobilinogen 2.0 mg/dL (0.2-1.0) 04/17/18 15:00 Ur Leukocyte Esterase Neg Gabriella/uL (Negative) 04/17/18 15:00 Urine WBC (Auto) 2 /hpf (0-5) 04/17/18 15:00 Urine RBC (Auto) 1 /hpf (0-3) 04/17/18 15:00 O2 Sat by Pulse Oximetry: 95 (RA) Pulse Ox Interpretation: Normal Medical Decision Making Medical Decision Makinyo male with history of alcohol abuse, comes in requesting detox Plan: -- Labs -- Urinalysis 1630 Patient medically cleared Pending crisis evaluation Disposition - Disposition Disposition: HOSPITALIZED Disposition Time: 15:30 Condition: STABLE - Clinical Impression Clinical Impression: Alcohol use disorder, severe, dependence - Scribe Statement The provider has reviewed the documentation as recorded by the Lizz Cee Provider Attestation: All medical record entries made by the Lizz were at my direction and personally dictated by me. I have reviewed the chart and agree that the record accurately reflects my personal performance of the history, physical exam, medical decision making, and the department course for this patient. I have also personally directed, reviewed, and agree with the discharge instructions and disposition.
--- NOTE | 2018-04-17 17:01 | PCM.BM ---
<Andrew Wright - Last Filed: 04/17/18 16:59> Treatment Plan Problems - Problems identified on initial assessmt knowledge deficit;alcohol use Date Initiated: 04/17/18 Time Initiated: 16:59 Assessment reference: NA Status: Active low motivation to change Date Initiated: 04/17/18 Time Initiated: 17:01 Assessment reference: NA Status: Active defensive coping Date Initiated: 04/17/18 Time Initiated: 17:01 Assessment reference: NA Status: Active Treatment assets and liabiliti Patient Assests: adapts well, cooperative, insightful, motivated, resourceful, self-reliant, ADL independent, good support system, negotiates basic needs, cognitively intact ( ), good interpersonal skills Patient Liabilities: substance abuse, medical problems - Milieu Protocol Maintain good personal hygiene: daily Encourage regular showers, daily Remind patient to perform daily oral care, daily Assist patient to perform ADL's Conduct patient checks and document Observation sheet: Q15 minutes Maintain personal safety: every shift Educate patient to report safety concerns to staff, every shift Monitor environment for contraband/sharps Medication safety: Monitor for expected outcome, potential side effects: every shift, Assess barriers to learning: every shift, Assess readiness for medication education: every shift <Ana Roper - Last Filed: 04/18/18 11:06> - Diagnosis (1) Alcohol use disorder, severe, dependence Status: Acute Interventions: 04/18/18 11:06 * Assess 7x/week regarding severity of withdrawal * Educate regarding risks, benefits, side effects and alternatives of medications * Use Motivational Interviewing for abstinence * Use CBT for relapse prevention * Medication management for withdrawal symptoms * Encourage medication assisted treatment * (2) Bipolar 1 disorder Status: Acute Interventions: 04/18/18 11:06 * Assess/adjust medications daily and /or as needed * See patient on an individual basis 7x/week to assess level of manic behaviors and stability * Discuss risks, benefits, side effects and alternatives of medications *
--- NOTE | 2018-04-17 17:23 | PCM.PSYCH ---
Initial Psychiatric Evaluation - Initial Psychiatric Evaluation Type of Admission: Voluntary Legal Status: Capacity Chief Complaint (in patient's own words): "I need detox" History of Present Illness and Precipitating Events: Patient is a 52 year old male who presents to the ED for alcohol detox. Patient is currently going to [facility]. Patient is single with no children and is living alone. He is drinking 1.5 lt liquor every day. He reports past and present significant withdrawal sxs. CIWA is high currently (>15) and will start librium He claims he had a rxn to librium once, but it sounds like he had withdrawal DTs, not b/c of librium. Denies drug use. Patient states he started feeling depressed to due to his unabated alcohol consumption. He reports anhedonia, sad ness, anxiety, sleep and appetite problems, but not suicidal, and no manic/psychotic sxs at this point. Medical Hx: Osteoarthritis, Gout, Obstructive Sleep Apnea, BPH, high blood pressure Surgical Hx: Denies Family Hx: All 3 of his sisters had alcohol or drug use Psych Hx: He had treatment for about [address] [facility]. He says he was hospitalized numerous times at [facility] for psychiatry and couple of detox admissions. He had suicide in the past. He was dx'ed with bipolar d/o and is on high doses of seroquel (800 mg/d) and lexapro 20 mg/d for that. Allergies: No Known Allergies Past Psychiatric History - Past Psychiatric History Previous Treatment History: Inpatient Pertinent Medical Hx (Current Medical&Sleep Prob, Allergies): Allergies Allergy/AdvReac Type Severity Reaction Status Date / Time No Known Allergies Allergy Verified 04/17/18 14:15 Gabapentin [Neurontin] 300 mg PO TID 01/21/18 Quetiapine Fumarate [Seroquel] 400 mg PO BID #60 tablet 02/02/18 Tamsulosin [Flomax] 0.4 mg PO HS cap 02/02/18 traZODone [Desyrel] 100 mg PO HS #30 tab 02/02/18 ARIPiprazole [Abilify] 10 mg PO DAILY 04/17/18 Atorvastatin [Lipitor] 20 mg PO DAILY 04/17/18 Escitalopram [Lexapro] 15 mg PO DAILY 04/17/18 Hydrocortisone 1% Cream [Cortizone 1% Cream] 1 appl TP DAILY PRN 04/17/18 Ibuprofen [Motrin Tab] 800 mg PO BID PRN 04/17/18 amLODIPine [Norvasc] 10 mg PO DAILY 04/17/18 Review of Systems - Neurological Neurological: Tremor - Psychiatric Psychiatric: Abnormal Sleep Pattern, Anhedonia, Anxiety, Auditory Hallucinations, Difficulty Concentrating, Irritability, Mood Swings, Panic Attacks. absent: Hallucinations, Homicidal Ideation, Paranoia, Suicidal Ideation Mental Status Examination - Personal Presentation Personal Presentation: Looks older than stated age - Affect Affect: Constricted - Motor Activity Motor Activity: Calm - Reliability in Providing Information Reliability in Providing Information: Good - Speech Speech: Organized - Mood Mood: Depressed, Anxious - Formal Thought Process Formal Thought Process: No Impairment - Cognitive Functions Orientation: Person, Place, Situation, Time Sensorium: Alert Attention/Concentration: Easily distracted Estimate of Intelligence: Average Judgement: Intact, as evidence by: Insight regarding need for hospitalization Memory: Recent intact, as evidence by: Ability to recall events of the day, Remote intact, as evidenced by: Abilit to recall sig. life events - Risk Risk: Seizure, Withdrawal, Diminished functioning - Strength & Assets Inventory Strength & Assets Inventory: Cooperative - Limitations Limitations: Living alone, Other DSM 5 DX - DSM 5 DSM 5 Diagnosis: Alcohol withdrawal Alcohol use d/o - severe Bipolar 1 d/o, depressed, moderate ERNA - Recommended/Plan of Treatment Treatment Recommendations and Plan of Treatment: Taper with librium Continue seroquel and lexapro Medical meds to continue Gabapentin for augmentation As needed medications All risks, benefits and alternatives of the meds discussed, and the pt agreed and understood. Attend groups and activities Supportive therapy and psychoeducation AK for abstinence CBT for relapse prevention Encourage MAT Refer to rehab or IOP, and self-help groups Teach healthy lifestyle methods, i.e. diet, exercise, meditation Smoking cessation with AK Nicotine patch if needed 34 min Projected ELOS: 5 days Prognosis: good w treatment - Smoking Cessation Smoking Cessation Initiated: Yes
[2018-04-18] MEDS: Multiple Vitamins Tab PO SCH (10:49)
--- NOTE | 2018-04-18 20:53 | PCM.PYCHPN ---
Psychiatric Progress Note - Psychiatric Progress Note Patient seen today, length of contact: 15 minutes Patient Chief Complaint: I am feeling little better with the treatment. I still have withdrawal symptoms. Problems Identified/Issues Discussed: Patient seen, chart reviewed, case discussed with the staff. Issues related to illness and treatment were discussed with the patient and staff. Reported compliant with treatment with no adverse effects. Tolerating treatment very well. Reported feeling better with the treatment. Still feels a lot of withdrawal symptoms including sweating, body aches, headache, shaking, tiredness. Mood reported as anxious. Affect appropriate. And cooperative. Awake, alert and oriented x3. Aftercare discussed with the patient. Denied any delusions, auditory or visual hallucinations, suicidal ideations or homicidal ideations at the time of evaluation. Medical Problems: Sleep apnea BPH Diagnostic Results: Reviewed DSM 5 Symptoms Update: Some improvement with treatment Medication Change: No Medical Record Reviewed: Yes Mental Status Examination - Cognitive Function Orientation: Person, Place, Situation, Time Memory: Intact Attention: WNL Concentration: WNL Association: [facility] Fund of Knowledge: [facility] Decription of patient's judgement and insights: Fair - Mood Mood: Anxious - Affect Affect: Other (Appropriate) - Speech Speech: Appropriate - Formal Thought Process Formal Thought Process: No Impairment Psychotic Thoughts and Behaviors: None - Suicidal Ideation Suicidal Ideation: No - Homicidal Ideation Homicidal Ideation: No Goal/Treatment Plan - Goal/Treatment Plan Need for Continued Stay: Remain at risks for inpatient hospitalization, Discharge may exacerbated symptoms, Severe functional impairment Progress Toward Problem(s) and Goals/Treatment Plan: Some improvement with treatment. Patient education. Supportive therapy. CBT for relapse prevention. VT for abstinence. Continue treatment as before. Estimated Date of D/C: 04/21/18 - Smoking Cessation Smoking Cessation Initiated: No
[2018-04-19] MEDS: Multiple Vitamins Tab PO SCH (10:17)
[2018-04-19] MEDS: Aluminum Hydroxide/Magnesium Hydroxide Susp (30 mL) PO PRN (18:02)
[2018-04-20] MEDS: Multiple Vitamins Tab PO SCH (10:05)
--- NOTE | 2018-04-20 13:45 | PCM.PYCHPN ---
Psychiatric Progress Note - Psychiatric Progress Note Patient seen today, length of contact: 15 minutes Patient Chief Complaint: "I am very anxious" Problems Identified/Issues Discussed: The pt is seen, chart reviewed, case discussed with staff. The pt is compliant with medications and reports no side-effects. Symptoms are improving but needs more time to stabilize. Pt attends groups and activities. Support given, psycho-education provided. After care discussed. Medication Change: Yes (detox changes daily) Medical Record Reviewed: Yes Mental Status Examination - Cognitive Function Orientation: Person, Place, Situation, Time Memory: Intact Attention: WNL Concentration: WNL Association: WNL Fund of Knowledge: WNL - Mood Mood: Anxious - Affect Affect: Other (Appropriate) - Speech Speech: Appropriate - Formal Thought Process Formal Thought Process: No Impairment - Suicidal Ideation Suicidal Ideation: No - Homicidal Ideation Homicidal Ideation: No Goal/Treatment Plan - Goal/Treatment Plan Need for Continued Stay: Remain at risks for inpatient hospitalization, Discharge may exacerbated symptoms, Severe functional impairment Progress Toward Problem(s) and Goals/Treatment Plan: Taper with librium Continue seroquel and lexapro Medical meds to continue Gabapentin for augmentation As needed medications All risks, benefits and alternatives of the meds discussed, and the pt agreed and understood. Attend groups and activities Supportive therapy and psychoeducation [place] for abstinence CBT for relapse prevention Encourage MAT Refer to rehab or IOP, and self-help groups Teach healthy lifestyle methods, i.e. diet, exercise, meditation Smoking cessation with [place] Nicotine patch if needed Estimated Date of D/C: 04/22/18 If changed, why: Still withdrawing, relapse risk is high
[2018-04-21] MEDS: Multiple Vitamins Tab PO SCH (09:23)
--- NOTE | 2018-04-21 11:35 | PCM.PYCHPN ---
Psychiatric Progress Note - Psychiatric Progress Note Patient seen today, length of contact: 15 minutes Patient Chief Complaint: "I am a little better" Problems Identified/Issues Discussed: The pt is seen, chart reviewed, case discussed with staff. Support and psychoeducation given, CBT and WI used briefly No new symptoms reported, improving slowly and needs more time No SEs from medications, risks discussed. After care discussed Medication Change: Yes (detox changes daily) Medical Record Reviewed: Yes Mental Status Examination - Cognitive Function Orientation: Person, Place, Situation, Time Memory: Intact Attention: WNL Concentration: WNL Association: WNL Fund of Knowledge: WNL - Mood Mood: Anxious - Affect Affect: Other (Appropriate) - Speech Speech: Appropriate - Formal Thought Process Formal Thought Process: No Impairment - Suicidal Ideation Suicidal Ideation: No - Homicidal Ideation Homicidal Ideation: No Goal/Treatment Plan - Goal/Treatment Plan Need for Continued Stay: Remain at risks for inpatient hospitalization, Discharge may exacerbated symptoms, Severe functional impairment Progress Toward Problem(s) and Goals/Treatment Plan: Taper with librium Continue seroquel and lexapro Medical meds to continue Gabapentin for augmentation As needed medications All risks, benefits and alternatives of the meds discussed, and the pt agreed and understood. Attend groups and activities Supportive therapy and psychoeducation [place] for abstinence CBT for relapse prevention Encourage MAT Refer to rehab or IOP, and self-help groups Teach healthy lifestyle methods, i.e. diet, exercise, meditation Smoking cessation with [place] Nicotine patch if needed Estimated Date of D/C: 04/22/18
[2018-04-21] MEDS: Aluminum Hydroxide/Magnesium Hydroxide Susp (30 mL) PO PRN (16:44)
[2018-04-21 20:07] VITALS: RESP 19
[2018-04-22] MEDS: Aluminum Hydroxide/Magnesium Hydroxide Susp (30 mL) PO PRN (01:09)
[2018-04-22] MEDS: Multiple Vitamins Tab PO SCH (09:09)
--- NOTE | 2018-04-22 09:51 | PCM.PYCHDC ---
Mental Status Examination - Mental Status Examination Orientation: Person Discharge Summary - Discharge Note Consultations:: List each consultation separately and include: 1. Reason for request. 2. Findings. 3. Follow-up Summary of Hospital Course include:: 1. Description of specific treatment plan utilized for patients during their course of treatmen. 2. Summarize the time- course for resolution of acute symptoms and/or regressed behaviors. 3. Describe issues identified and worked on during hospitalization. 4. Describe medication utilized. 5. Describe medical problems identified and treated. 6. Reassessment of suicide risk Summary of Hospital Course: Patient is a 52 year old male who presents to the ED for alcohol detox. Patient is currently going to [facility]. Patient is single with no children and is living alone. He is drinking 1.5 lt liquor every day. He reports past and present significant withdrawal sxs. CIWA is high currently (>15) and will start librium He claims he had a rxn to librium once, but it sounds like he had withdrawal DTs, not b/c of librium. Denies drug use. Patient states he started feeling depressed to due to his unabated alcohol consumption. He reports anhedonia, sad ness, anxiety, sleep and appetite problems, but not suicidal, and no manic/psychotic sxs at this point. Medical Hx: Osteoarthritis, Gout, Obstructive Sleep Apnea, BPH, high blood pressure Surgical Hx: Denies Family Hx: All 3 of his sisters had alcohol or drug use Psych Hx: He had treatment for about 10 years at [facility] [place]. He says he was hospitalized numerous times at [facility] for psychiatry and couple of detox admissions. He had suicide in the past. He was dx'ed with bipolar d/o and is on high doses of seroquel (800 mg/d) and lexapro 20 mg/d for that. Allergies: No Known Allergies He will go to [facility] and [facility]. - Diagnosis (1) Alcohol use disorder, severe, dependence Current Visit: Yes Status: Acute (2) Bipolar 1 disorder Current Visit: No Status: Acute - Final Diagnosis (DSM 5) Condition upon Discharge: STABLE Disposition: HOME/ ROUTINE Follow-up Treatment Plan: Taper with librium Continue seroquel and lexapro Medical meds to continue Gabapentin for augmentation As needed medications All risks, benefits and alternatives of the meds discussed, and the pt agreed and understood. Attend groups and activities Supportive therapy and psychoeducation [place] for abstinence CBT for relapse prevention Encourage MAT Refer to rehab or IOP, and self-help groups Teach healthy lifestyle methods, i.e. diet, exercise, meditation Smoking cessation with [place] Nicotine patch if needed Prescriptions/Medication Reconciliation: amLODIPine [Norvasc] 10 mg PO DAILY #30 tab busPIRone [Buspar] 10 mg PO TID #90 tab Escitalopram [Lexapro] 20 mg PO DAILY #30 tab Gabapentin [Neurontin] 100 mg PO TID #90 cap QUEtiapine [SEROquel] 400 mg PO DAILY #60 tab QUEtiapine [SEROquel] 400 mg PO HS #60 tab Tamsulosin [Flomax] 0.4 mg PO HS #30 cap traZODone [Desyrel] 100 mg PO HS PRN #30 tab PRN Reason: Insomnia
[2018-04-22 10:36] VITALS: BP 132/85; PULSE 94; TEMP 97.6; O2SAT 94
== END 2018-04-22 10:42 | disposition home or self-care (01) | DRG 751 ==
LOC: C.ER 14:01 → C.7D 16:49
PROC: HZ2ZZZZ Detoxification Services for Substance Abuse Treatment (ICD-10-PCS; principal; 2018-04-17)
PROC: HZ42ZZZ Group Counseling for Substance Abuse Treatment, Cognitive-Behavioral (ICD-10-PCS; 2018-04-17)
PROC: HZ46ZZZ Group Counseling for Substance Abuse Treatment, Psychoeducation (ICD-10-PCS; 2018-04-17)
PROC: HZ47ZZZ Group Counseling for Substance Abuse Treatment, Motivational Enhancement (ICD-10-PCS; 2018-04-17)
PROC: HZ83ZZZ Medication Management for Substance Abuse Treatment, Antabuse (ICD-10-PCS; 2018-04-17)
PROC: HZ56ZZZ Individual Psychotherapy for Substance Abuse Treatment, Psychoeducation (ICD-10-PCS; 2018-04-17)
DX: F10.239 Alcohol dependence with withdrawal, unspecified (principal); F31.9 Bipolar disorder, unspecified; G47.33 Obstructive sleep apnea (adult) (pediatric); Z87.891 Personal history of nicotine dependence; F41.1 Generalized anxiety disorder; N40.0 Benign prostatic hyperplasia without lower urinary tract symptoms

== ENCOUNTER 2018-07-02 18:32 | Emergency (ER) | payer MEDICAID ==
[2018-07-02 18:37] VITALS: BMI 32.8
--- NOTE | 2018-07-02 19:21 | C.PDOC ---
History Of Present Illness 53 year old male presents to the ED for evaluation of suicidal ideation, alcohol withdrawal. Patient is noncompliant with his psych medications for the past 2 days. 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 Patient does not have a specific plan,has been hospitalized at [facility] multiple times for psychiatry and detox admissions. Patient's last hospitalization was 04/2018. Patient denies HI, hallucinations, other medical complaints at this time. SUICIDAL IDEATION, ETOH WITHDRAWAL. PS NONCOMPLIANT W PSYCH MEDS X 2 DAYS. 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 +MARIJUANA. NO PLAN. hospitalized numerous times at [facility] for psychiatry and detox admissions LAST HOSP 04/2018 EXAM NONTOXIC NAD HEENT NO FASCICULATIONS ANICTERIC CV RRR PSYCH CALM COOEPRATIVE NO ACUTE INTOX, PSYCHOSIS NEURO NO TREMORS REMAINDER NEG Time Seen by Provider: 07/02/18 19:19 Chief Complaint (Nursing): Substance Abuse History Per: Patient History/Exam Limitations: no limitations Onset/Duration Of Symptoms: Days (2) Current Symptoms Are (Timing): Still Present Suicide/Self Injury Attempted (Context): None Modifying Factor(s): Alcohol, Marijuana Associated Symptoms: Depression, Suicidal Thoughts. denies: Suicidal Plan Recent travel outside of the [place]: No Additional History Per: Patient Past Medical History Reviewed: Historical Data, Nursing Documentation, Vital Signs Vital Signs: Last Vital Signs Temp 98.7 F 07/02/18 18:40 Pulse 105 H 07/02/18 18:40 Resp 20 07/02/18 18:40 BP 133/86 07/02/18 18:40 Pulse Ox 96 07/02/18 18:40 - Medical History PMH: Anemia, Anxiety, Arthritis, Benign Prostatic Hyperplasia, Bipolar Disorder, Depression, Diverticulitis (Dx 2015), Gastritis, HTN, Hypercholesterolemia, Post Traumatic Stress Disorder, Schizophrenia, Seizures (ETOH), Sleep Apnea Denies: Diabetes, Hepatitis, HIV, Chronic Kidney Disease, Sexually Transmi tted Disease Surgical History: Cholecystectomy (July 2016) - [facility] Procedures ALCOHOL DETOXIFICATION (04/14/14) DETOXIFICATION SERVICES FOR SUBSTANCE ABUSE TREATMENT (04/17/18) GROUP ADMINISTRATIVE SUPPORT ASSOCIATE FOR SUBSTANCE ABUSE TREATMENT, PSYCHOEDUCATION (04/17/18) GROUP ADMINISTRATIVE SUPPORT ASSOCIATE FOR SUBSTANCE ABUSE, COGNITIVE BEHAVIORAL (04/17/18) GROUP ADMINISTRATIVE SUPPORT ASSOCIATE FOR SUBSTANCE ABUSE, MOTIVATIONAL ENHANCE (04/17/18) GROUP PSYCHOTHERAPY (01/21/18) INDIV PSYCHOTHERAPY FOR SUBSTANCE ABUSE TREATMENT, SUPPORT (01/21/18) INDIV PSYCHOTHERAPY FOR SUBSTANCE ABUSE, COGNITIV BEHAVIORAL (01/21/18) INDIV PSYCHOTHERAPY FOR SUBSTANCE ABUSE, PSYCHOEDUCATION (04/17/18) INDIVIDUAL PSYCHOTHERAPY, COGNITIVE-BEHAVIORAL (01/21/18) INDIVIDUAL PSYCHOTHERAPY, SUPPORTIVE (01/21/18) MEDICATION MANAGEMENT (08/20/16) MEDS MGMT FOR SUBSTANCE ABUSE TREATMENT, ANTABUSE (04/17/18) Family History: States: Unknown Family Hx - Social History Hx Tobacco Use: Yes Hx Alcohol Use: Yes Hx Substance Use: Yes - Immunization History Hx Tetanus Toxoid Vaccination: No Hx Influenza Vaccination: No Hx Pneumococcal Vaccination: No Review Of Systems Constitutional: Negative for: Fever, Chills Cardiovascular: Negative for: Chest Pain Respiratory: Negative for: Shortness of Breath Gastrointestinal: Negative for: Nausea, Vomiting, Abdominal Pain Skin: Negative for: Rash Psych: Positive for: Depression, Suicidal ideation Physical Exam - Physical Exam Appears: Non-toxic, No Acute Distress Skin: Normal Color, Warm, Dry Head: Atraumatic, Normacephalic Eye(s): bilateral: Normal Inspection (anicteric) Oral Mucosa: Moist Neck: Normal ROM, Supple Chest: Symmetrical Cardiovascular: Rhythm Regular Respiratory: Normal Breath Sounds, No Rales, No Rhonchi, No Wheezing Gastrointestinal/Abdominal: Soft, No Tenderness, No Distention Extremity: Normal ROM, No Tenderness, No Swelling, Other (no fasciculations) Neurological/Psych: Oriented x3, Normal Speech, Other (no acute intoxication, psychosis, no tremors) Gait: Steady ED Course And Treatment - Laboratory Results Result Diagrams: 07/02/18 20:23 07/02/18 20:23 ECG: Interpreted By Me ECG Rhythm: Sinus Rhythm ECG Interpretation: Normal Rate From EC O2 Sat by Pulse Oximetry: 96 (ON RA) Pulse Ox Interpretation: Normal - Radiology CXR: Interpreted by Me CXR Interpretation: Yes: No Acute Disease Progress - Re-Evaluation Re-evaluation Note: 07/02/18 19:29 D/W CRISIS WILL EVAL INE R 07/02/18 20:46 MED CLEAR FOR PSYCH. CRISIS NOTIFIED 07/02/18 23:36 D/W DR CARLISLE @ [facility]: ACCEPTS FOR TRANSFER - Data Reviewed Data Reviewed: Lab, Diagnostic imaging, EKG, Old records Medical Decision Making Medical Decision Making: Plan: * Labs * UA * Crisis eval * Librium 100 mg PO Disposition Counseled Patient/Family Regarding: Studies Performed, Diagnosis - Disposition Disposition: Trans to Other Acute Care Hosp Disposition Time: 00:47 Condition: SERIOUS Forms: [facility] (Kenyan) - Clinical Impression Clinical Impression: Alcohol abuse, Bipolar 1 disorder - Scribe Statement The provider has reviewed the documentation as recorded by the Scribe Riccardo Purvis All medical record entries made by the Scribe were at my direction and personally dictated by me. I have reviewed the chart and agree that the record accurately reflects my personal performance of the history, physical exam, medical decision making, and the department course for this patient. I have also personally directed, reviewed, and agree with the discharge instructions and disposition.
[2018-07-02 20:06] LABS: SQUAMOUS EPITHIAL < 1 /hpf (0-5); URINE BACTERIA FEW (<OCC); URINE BILIRUBIN NEGATIVE (NEGATIVE); URINE BLOOD NEGATIVE (NEGATIVE); URINE CLARITY Hazy (Clear); URINE COLOR Yellow (YELLOW); URINE GLUCOSE (UA) NORMAL (Normal); URINE LEUKOCYTE ESTERASE TRACE Leu/uL (Negative); URINE PROTEIN 1+ mg/dL (NEGATIVE); URINE UROBILINOGEN NORMAL mg/dL (0.2-1.0)
[2018-07-02 20:24] LABS: BARBITURATES, UR NEGATIVE (NEGATIVE); BENZODIAZEPINES, UR NEGATIVE (NEGATIVE); OPIATES, UR NEGATIVE (NEGATIVE); PHENCYCLIDINE, UR NEGATIVE (NEGATIVE)
[2018-07-02 20:26] LABS: BASO % 0.2 % (0.0-2.0); EOS # 0.2 K/uL (0.0-0.7); EOS % 3.2 % (0.0-4.0); HEMOGLOBIN 12.9 g/dL (12.0-18.0); LYMPH % 32.5 % (20.0-40.0); MEAN CELL VOLUME 82.3 fL (80.0-94.0); MEAN CORPUSCULAR HEMOGLOBIN 26.5 pg (27.0-31.0); MEAN CORPUSCULAR HGB CONC 32.2 g/dL (33.0-37.0); MEAN PLATELET VOLUME 8.7 fL (7.2-11.7); MONO # 0.5 K/uL (0.0-0.8); MONO % 7.7 % (0.0-10.0); NEUT # 3.5 K/uL (1.8-7.0); NEUT % 56.4 % (50.0-75.0); NRBC % 0.2 % (0.0-2.0); RBC 4.88 Mil/uL (4.40-5.90); RED CELL DISTRIBUTION WIDTH 13.7 % (11.5-14.5); WHITE BLOOD COUNT 6.2 K/uL (4.8-10.8)
[2018-07-02 20:39] LABS: ALB/GLOB RATIO 1.3 (1.0-2.1); ALBUMIN 4.1 g/dL (3.5-5.0); ALT/SGPT 7 U/L (21-72); AST/SGOT 19 U/L (17-59); BLOOD UREA NITROGEN 7 mg/dL (9-20); CALCIUM 9.1 mg/dl (8.6-10.4); GFR NON-AFRICAN AMERICAN > 60
[2018-07-02 23:58] VITALS: BP 148/93; PULSE 98; RESP 17; TEMP 98.2
[2018-07-03 00:47] VITALS: O2SAT 96
--- NOTE | 2018-07-03 09:10 | RAD ---
Chest x-ray single frontal view HISTORY: Medical clearance. COMPARISON: 09/05/2016 Findings: Mild patchy increased markings in the right infrahilar region. Heart size within normal limits. Degenerative changes in the spine. Impression: Mild patchy increased markings in the right infrahilar region. Clinical correlation. Heart size within normal limits.
== END 2018-07-03 00:45 | disposition short-term general hospital (02) ==
LOC: C.ER 18:32
DX: F10.10 Alcohol abuse, uncomplicated (principal); Y90.3 Blood alcohol level of 60-79 mg/100 ml; F31.9 Bipolar disorder, unspecified

== ENCOUNTER 2018-08-05 14:07 | Inpatient (IN) | payer MEDICAID ==
[2018-08-05 14:08] VITALS: BMI 32.8
--- NOTE | 2018-08-05 15:05 | C.PDOC ---
History Of Present Illness 53 y/o male,w/PMhx of schizoaffective disorder, presents to the ER complaining of hearing voices. Patient states he was recently hospitalized for suicidal ideation, hallucinations, and ETOH detox in [facility]. Patient was stabilized for several days and he was discharged. He followed up with his PMD and psychiatrist. He has been taken off some of his medications. He is still taking Buspirone, Seroquel, and Trazodone. He is drinking ETOH again and he smokes marijuana occasionally. He hears voices occasionally which are normally chatter in the background. However, he now hears voices that are telling him to kill himself. He is thinking about jumping in front of car. He has not been able to eat and drink normally.Denies having homicidal ideation, fever,chills, CP,SOB, nausea, vomiting, and abdominal pain. Time Seen by Provider: 08/05/18 14:38 Chief Complaint (Nursing): Psychiatric Evaluation History Per: Patient History/Exam Limitations: no limitations Onset/Duration Of Symptoms: Days Current Symptoms Are (Timing): Still Present Severity: Moderate Past Medical History Reviewed: Historical Data, Nursing Documentation, Vital Signs Vital Signs: Last Vital Signs Temp 98.7 F 08/05/18 14:15 Pulse 102 H 08/05/18 14:15 Resp 17 08/05/18 14:15 BP 130/83 08/05/18 14:15 Pulse Ox 96 08/05/18 14:15 Primary Care Provider: Vandana Roth - Medical History PMH: Anemia, Anxiety, Arthritis, Benign Prostatic Hyperplasia, Bipolar Disorder, Depression, Diverticulitis (Dx 2015), Gastritis, HTN, Hypercholesterolemia, Post Traumatic Stress Disorder, Schizophrenia, Seizures (ETOH), Sleep Apnea Denies: Diabetes, Hepatitis, HIV, Chronic Kidney Disease, Sexually Transmitted Disease Surgical History: Cholecystectomy (July 2016) - [facility] Procedures ALCOHOL DETOXIFICATION (04/14/14) DETOXIFICATION SERVICES FOR SUBSTANCE ABUSE TREATMENT (04/17/18) GROUP MARINE SERVICE STATION ATTENDANT FOR SUBSTANCE ABUSE TREATMENT, PSYCHOEDUCATION (04/17/18) GROUP MARINE SERVICE STATION ATTENDANT FOR SUBSTANCE ABUSE, COGNITIVE BEHAVIORAL (04/17/18) GROUP MARINE SERVICE STATION ATTENDANT FOR SUBSTANCE ABUSE, MOTIVATIONAL ENHANCE (04/17/18) GROUP PSYCHOTHERAPY (01/21/18) INDIV PSYCHOTHERAPY FOR SUBSTANCE ABUSE TREATMENT, SUPPORT (01/21/18) INDIV PSYCHOTHERAPY FOR SUBSTANCE ABUSE, COGNITIV BEHAVIORAL (01/21/18) INDIV PSYCHOTHERAPY FOR SUBSTANCE ABUSE, PSYCHOEDUCATION (04/17/18) INDIVIDUAL PSYCHOTHERAPY, COGNITIVE-BEHAVIORAL (01/21/18) INDIVIDUAL PSYCHOTHERAPY, SUPPORTIVE (01/21/18) MEDICATION MANAGEMENT (08/20/16) MEDS MGMT FOR SUBSTANCE ABUSE TREATMENT, ANTABUSE (04/17/18) Family History: States: No Known Family Hx - Social History Hx Tobacco Use: Yes Hx Alcohol Use: Yes Hx Substance Use: Yes - Immunization History Hx Tetanus Toxoid Vaccination: No Hx Influenza Vaccination: No Hx Pneumococcal Vaccination: No Review Of Systems Except As Marked, All Systems Reviewed And Found Negative. Constitutional: Negative for: Fever, Chills Cardiovascular: Negative for: Chest Pain Respiratory: Negative for: Shortness of Breath Gastrointestinal: Negative for: Nausea, Vomiting, Abdominal Pain Psych: Positive for: Suicidal ideation Physical Exam - Physical Exam Appears: Non-toxic, No Acute Distress, Other (pt is awake, alert, orientedx3, and appropriate) Skin: Normal Color, Warm, Dry Head: Atraumatic, Normacephalic Eye(s): bilateral: Normal Inspection Nose: Normal Oral Mucosa: Moist Neck: Supple Chest: Symmetrical Cardiovascular: Rhythm Regular Respiratory: Normal Breath Sounds, No Rales, No Rhonchi, No Wheezing Gastrointestinal/Abdominal: Normal Exam, Soft, No Tenderness, No Guarding, No Rebound Neurological/Psych: Oriented x3, Normal Speech ED Course And Treatment - Laboratory Results Result Diagrams: 08/05/18 15:02 08/05/18 15:02 Lab Interpretation: No Acute Changes O2 Sat by Pulse Oximetry: 96 (RA) Pulse Ox Interpretation: Normal Progress Note: Patient is medically cleared for psychiatric admission. Patient evaluated by hand worker for psychiatric evaluation. Medical Decision Making Medical Decision Making: Plan: --Labs --UA Disposition - Disposition Disposition: HOSPITALIZED Disposition Time: 16:25 Condition: STABLE - POA Present On Arrival: None - Clinical Impression Clinical Impression: Schizoaffective disorder, Suicidal ideation - Scribe Statement The provider has reviewed the documentation as recorded by the Lziz Suazo Provider Attestation: All medical record entries made by the Scribe were at my direction and personally dictated by me. I have reviewed the chart and agree that the record accurately reflects my personal performance of the history, physical exam, medical decision making, and the department course for this patient. I have also personally directed, reviewed, and agree with the discharge instructions and disposition.
[2018-08-05 15:13] LABS: BASO % 0.4 % (0.0-2.0); EOS # 0.2 K/uL (0.0-0.7); EOS % 3.5 % (0.0-4.0); HEMOGLOBIN 12.5 g/dL (12.0-18.0); LYMPH # 1.6 K/uL (1.0-4.3); LYMPH % 24.9 % (20.0-40.0); MEAN CELL VOLUME 81.1 fL (80.0-94.0); MEAN CORPUSCULAR HEMOGLOBIN 26.5 pg (27.0-31.0); MEAN CORPUSCULAR HGB CONC 32.7 g/dL (33.0-37.0); MEAN PLATELET VOLUME 8.8 fL (7.2-11.7); MONO # 0.4 K/uL (0.0-0.8); MONO % 6.5 % (0.0-10.0); NEUT # 4.3 K/uL (1.8-7.0); NEUT % 64.7 % (50.0-75.0); NRBC % 0.2 % (0.0-2.0); RBC 4.72 Mil/uL (4.40-5.90); RED CELL DISTRIBUTION WIDTH 13.5 % (11.5-14.5); WHITE BLOOD COUNT 6.6 K/uL (4.8-10.8)
[2018-08-05 15:18] LABS: SQUAMOUS EPITHIAL < 1 /hpf (0-5); URINE BILIRUBIN NEGATIVE (NEGATIVE); URINE BLOOD NEGATIVE (NEGATIVE); URINE CLARITY Clear (Clear); URINE COLOR Yellow (YELLOW); URINE GLUCOSE (UA) NORMAL (Normal); URINE LEUKOCYTE ESTERASE NEG Leu/uL (Negative); URINE PROTEIN NEGATIVE (NEGATIVE)
[2018-08-05 15:28] LABS: ALB/GLOB RATIO 1.2 (1.0-2.1); ALBUMIN 4.4 g/dL (3.5-5.0); ALT/SGPT 20 U/L (21-72); AST/SGOT 23 U/L (17-59); BLOOD UREA NITROGEN 11 mg/dL (9-20); CALCIUM 9.8 mg/dl (8.6-10.4); GFR NON-AFRICAN AMERICAN > 60
[2018-08-05 15:49] LABS: BARBITURATES, UR NEGATIVE (NEGATIVE); BENZODIAZEPINES, UR NEGATIVE (NEGATIVE); OPIATES, UR NEGATIVE (NEGATIVE); PHENCYCLIDINE, UR NEGATIVE (NEGATIVE)
[2018-08-05 16:53] VITALS: O2SAT 95
--- NOTE | 2018-08-05 17:04 | PCM.BM ---
<Krystal Pal - Last Filed: 08/05/18 17:00> Treatment Plan Problems - Problems identified on initial assessmt Auditory Hallucinations Date Initiated: 08/05/18 Time Initiated: 17:02 Assessment reference: NA Status: Active Medication Nonadherence Date Initiated: 08/05/18 Time Initiated: 17:02 Assessment reference: NA Status: Active Altered Thought Process Date Initiated: 08/05/18 Time Initiated: 17:02 Assessment reference: NA Status: Active Treatment assets and liabiliti Patient Assests: adapts well, cooperative, insightful, motivated, resourceful, self-reliant, ADL independent, good support system, negotiates basic needs, cognitively intact, good interpersonal skills Patient Liabilities: live alone (Homeless), poor support system, substance abuse (THC, hx of ETOH), medical problems (HTN, Sleep Apnea), visual impairment (Wear Glasses) - Milieu Protocol Maintain good personal hygiene: daily Encourage regular showers, daily Remind patient to perform daily oral care, daily Assist patient to perform ADL's, other Assist patient to perform ADL's Conduct patient checks and document Observation sheet: Q15 minutes (For safety) Maintain personal safety: every shift Educate patient to report safety concerns to staff, every shift Monitor environment for contraband/sharps Medication safety: Monitor for expected outcome, potential side effects: every shift, Assess barriers to learning: every shift, Assess readiness for medication education: every shift <Elidia Vuong - Last Filed: 08/07/18 11:31> - Diagnosis (1) Bipolar disorder, curr episode mixed, severe, with psychotic features Status: Acute Interventions: 08/07/18 11:31 * Assess/adjust medications daily and /or as needed * See patient on an individual basis 7x/week to assess level of manic behaviors and stability * Discuss risks, benefits, side effects and alternatives of medications * <Denisse Garrison - Last Filed: 08/07/18 13:57> Family Contact Family involvement: Patient does not wish Family/SO involvement Family contact: Patient declines to allow family contact at present - Goals for Treatment Patient goals for treatment: "I want to return to [facility]." Discharge/Continuing Care - Education Needs Education Needs: Patient Medication, Patient Diagnosis/Disease Process, Patient Coping Skills - Discharge Discharge Criteria: Free of Suicidal thoughts, Normal sleep pattern, Ability to care for self, No longer exhibiting s/s of withdrawal, Reduction of target symptoms Discharge to:: Home - Treatment Team Participation Discussed with Family/SO: No Was Patient/Family/SO present at Treatment Team Meeting: Yes
--- NOTE | 2018-08-06 10:14 | PCM.PSYCH ---
Initial Psychiatric Evaluation - Initial Psychiatric Evaluation Type of Admission: Voluntary Legal Status: Capacity Chief Complaint (in patient's own words): I was feeling depressed and suicidal. History of Present Illness and Precipitating Events: Patient is a 53 year old male who was self-referred to [facility] due to suicidal ideation and command hallucinations. [facility] is familiar with this patient. Patient has history of multiple inpatient psychiatric hospitalizations. He was last discharged from [facility] last month. He reports history of follow-up with a psychiatrist. Patient reports that he has been experiencing auditory hallucinations command type telling him 'to kill myself". Patient reports that his psychiatrist took him off of certain psychiatric medications 3 weeks ago, as medications were making him sleepy. Yesterday he started hearing voices telling him to kill himself, he developed suicidal ideation, became concerned and came to the hospital to get help. He appears somewhat paranoid and delusional. Reports auditory hallucinations or visual hallucinations and some paranoia. He reports anxiety, irritability and agitation. He reports depressed mood and feelings of hopelessness and helplessn ess. He reports poor sleep and poor appetite. Patient reports that used to drink quite a bit and has started to drink again due to the voices. Patient reports that his last drink was yesterday and he usually drinks about a pint of vodka and "a couple of beers". He reports anxiety and headaches but denies any other withdrawal symptoms. He also reports of smoking marijuana. Past medical history HTN, high cholesterol, and osteoarthritis, BPH Current Medications: Active Medications Generic Name Dose Route Start Last Admin Trade Name Freq PRN Reason Stop Dose Admin Acetaminophen 650 mg 08/05/18 18:14 Tylenol 325mg Tab PO Q6 PRN Pain, moderate (4-7) Hydroxyzine HCl 25 mg 08/05/18 18:14 08/05/18 22:15 Atarax PO 25 mg Q4 PRN Administration Anxiety Pneumococcal Polyvalent Vaccine 0.5 ml 08/08/18 10:00 Pneumovax 23 Vaccine IM 08/08/18 10:01 .ONCE ONE Quetiapine Fumarate 200 mg 08/05/18 22:00 08/05/18 22:23 Seroquel PO 200 mg HS MARI Administration Past Psychiatric History - Past Psychiatric History Previous Treatment History: Inpatient Pertinent Medical Hx (Current Medical&Sleep Prob, Allergies): Allergies Allergy/AdvReac Type Severity Reaction Status Date / Time No Known Allergies Allergy Verified 07/27/18 13:51 busPIRone [Buspar] 10 mg PO TID #90 tab 04/22/18 Atorvastatin [Lipitor] 20 mg PO DAILY #14 tab 07/13/18 Folic Acid 1 mg PO DAILY 14 Days tab 07/13/18 QUEtiapine [Seroquel] 200 mg PO HS 14 Days tab 07/13/18 Tamsulosin [Flomax] 0.4 mg PO HS 14 Days cap 07/13/18 Thiamine [Vitamin B1 Tab] 100 mg PO DAILY 14 Days tab 07/13/18 amLODIPine [Norvasc] 10 mg PO DAILY #14 tab 07/13/18 Mirtazapine [Remeron] 30 mg PO DAILY 08/05/18 Review of Systems - Review of Systems All systems: reviewed and no additional remarkable complaints except - Psychiatric Psychiatric: Anxiety, Auditory Hallucinations, Irritability, Suicidal Ideation Mental Status Examination - Personal Presentation Personal Presentation: Looks stated age - Affect Affect: Constricted, Depressed - Motor Activity Motor Activity: Psychomotor Retardation - Reliability in Providing Information Reliability in Providing Information: Poor, due to alteration in thoughts, Poor, due to altered mood - Speech Speech: Organized - Mood Mood: Depressed, Anxious - Formal Thought Process Formal Thought Process: Hallucinations, Delusions, Paranoia - Hallucinations/Delusions Hallucinations: Visual, Auditory Delusions: Persecution - Obsessions/Compulsions Obsessions: No Compulsions: No - Cognitive Functions Orientation: Person, Place, Situation, Time Sensorium: Alert Attention/Concentration: Attentive Abstract Thinking: [place] Estimate of Intelligence: Below average Judgement: Imparied, as evidence by: Poor judgement, Imparied, as evidence by: Lack of insight into illness - Risk Risk: Suicidal, Withdrawal, Diminished functioning - Limitations Limitations: Living alone DSM 5 DX - DSM 5 DSM 5 Diagnosis: Bipolar disorder depressed severe with psychotic features Alcohol use disorder severe Alcohol withdrawal Cannabis use disorder moderate - Recommended/Plan of Treatment Treatment Recommendations and Plan of Treatment: Bipolar disorder depressed severe with psychotic features Alcohol use disorder severe Alcohol withdrawal Cannabis use disorder moderate BPH HTN CBT Stabilization Supportive therapy and group therapy Librium as needed Seroquel for insomnia Abilify for mood Trazodone for insomnia Hydroxyzine for anxiety Lexapro for depression Continue meds for HTN and BPH
[2018-08-08] MEDS ORDERED: Pneumococcal 23-Valent Vaccine IM ONE (10:00)
[2018-08-08] MEDS: Pantoprazole 40 mg EC Tab PO SCH (17:00)
--- NOTE | 2018-08-08 20:06 | PCM.PYCHPN ---
Psychiatric Progress Note - Psychiatric Progress Note Patient seen today, length of contact: 15 Mins Patient Chief Complaint: "I am still anxious" Problems Identified/Issues Discussed: Patient was seen and chart was reviewed. Case was discussed with treatment team. Issues related to the illness and treatments were discussed with the patient, and issues related to illness and treatments were discussed with the patient and staff. Patient reported compliance with treatment and no adverse effects from the medications were reported. Patient is tolerating treatment well at this time, but reports feeling tired with the Seroquel, reports doing well with Trazodone for sleep. ``````````````````````````````````````````````````````````` Patient reports mood as improved, affect is congruent with mood. Aftercare was discussed with patient and he verbalized understanding. Patient denies any delusions, auditory/visual hallucinations, or perceptual disturbances. Patient also denies any suicidal or homicidal ideation/plan/intent at this time. Medication Change: Yes (Decrease Seroquel to 100mg at HS and start Trazodone 100mg at HS) Medical Record Reviewed: Yes Mental Status Examination - Cognitive Function Orientation: Person, Place, Situation, Time Memory: Intact Attention: WNL Concentration: WNL - Mood Mood: Depressed, Anxious - Affect Affect: Constricted, Depressed - Speech Speech: Appropriate - Formal Thought Process Formal Thought Process: No Impairment - Suicidal Ideation Suicidal Ideation: No - Homicidal Ideation Homicidal Ideation: No Goal/Treatment Plan - Goal/Treatment Plan Need for Continued Stay: Remain at risks for inpatient hospitalization, Discharge may exacerbated symptoms Progress Toward Problem(s) and Goals/Treatment Plan: Continue with the rest of medications as before Support and psychoeducation daily Attend groups and activities daily Individual therapy After care planning by HARIS and the team
--- NOTE | 2018-08-09 01:05 | PCM.PYCHPN ---
Psychiatric Progress Note - Psychiatric Progress Note Patient seen today, length of contact: 15 Mins Patient Chief Complaint: I was feeling depressed and suicidal. Problems Identified/Issues Discussed: Patient was seen and evaluated, chart reviewed and discussed with staff. Patient reports depressed mood and feelings of hopelessness and helplessness. He reports irritability and agitation. He still reports withdrawal medications. He still reports of auditory lizet lucinations and paranoia. He is taking medication but denies any side effects. Supportive therapy was given Medication Change: Yes Medical Record Reviewed: Yes Mental Status Examination - Cognitive Function Orientation: Person, Place, Situation, Time Memory: Intact Attention: WNL Concentration: Poor Association: WNL Fund of Knowledge: Poor - Mood Mood: Depressed, Anxious - Affect Affect: Constricted, Depressed - Speech Speech: Soft - Formal Thought Process Formal Thought Process: Hallucinations, Delusions, Paranoia - Suicidal Ideation Suicidal Ideation: No - Homicidal Ideation Homicidal Ideation: No Goal/Treatment Plan - Goal/Treatment Plan Need for Continued Stay: Remain at risks for inpatient hospitalization Progress Toward Problem(s) and Goals/Treatment Plan: Bipolar disorder depressed severe with psychotic features Alcohol use disorder severe Alcohol withdrawal Cannabis use disorder moderate BPH HTN CBT Stabilization Supportive therapy and group therapy Librium as needed Seroquel for insomnia Abilify for mood Trazodone for insomnia Hydroxyzine for anxiety Lexapro for depression Continue meds for HTN and BPH - Smoking Cessation Smoking Cessation Initiated: No
[2018-08-09] MEDS: Pantoprazole 40 mg EC Tab PO SCH (09:21)
[2018-08-10] MEDS: Pantoprazole 40 mg EC Tab PO SCH (09:10)
--- NOTE | 2018-08-10 23:00 | PCM.PYCHPN ---
Psychiatric Progress Note - Psychiatric Progress Note Patient seen today, length of contact: 15 Mins Patient Chief Complaint: "I am still feeling anxious at night" Problems Identified/Issues Discussed: The pt is seen, chart reviewed, case is discussed with staff. Support and psychoeducation given, CBT and MN used briefly The pt is improving slowly but needs more time due to severity of symptoms and relapse risk. No SEs from medications, risks discussed. Encouraged to take Atarax PRN for anxiety before bedtime After care discussed Medication Change: Yes (Decrease Seroquel to 100mg at HS and start Trazodone 100mg at HS) Medical Record Reviewed: Yes Mental Status Examination - Cognitive Function Orientation: Person, Place, Situation, Time Memory: Intact Attention: WNL Concentration: WNL - Mood Mood: Depressed, Anxious - Affect Affect: Constricted, Depressed - Speech Speech: Appropriate - Formal Thought Process Formal Thought Process: No Impairment - Suicidal Ideation Suicidal Ideation: No - Homicidal Ideation Homicidal Ideation: No Goal/Treatment Plan - Goal/Treatment Plan Need for Continued Stay: Remain at risks for inpatient hospitalization, Discharge may exacerbated symptoms Progress Toward Problem(s) and Goals/Treatment Plan: Continue with the rest of medications as before Support and psychoeducation daily Attend groups and activities daily Individual therapy After care planning by HARIS and the team
[2018-08-11] MEDS: Pantoprazole 40 mg EC Tab PO SCH (09:12)
[2018-08-12] MEDS: Pantoprazole 40 mg EC Tab PO SCH (09:14)
--- NOTE | 2018-08-12 10:46 | PCM.PYCHPN ---
Psychiatric Progress Note - Psychiatric Progress Note Patient seen today, length of contact: 15 Mins Patient Chief Complaint: I m feeling depressed Problems Identified/Issues Discussed: Patient was seen and evaluated, chart reviewed and discussed with staff. Patient reports depressed mood and feelings of hopelessness and helplessness. He reports irritability and agitation. He still reports withdrawal medications. He still reports of auditory hallucinations and paranoia. He is taking medication but denies any side effects. Supportive therapy was given Medication Change: Yes (Decrease Seroquel to 100mg at HS and start Trazodone 10 0mg at HS) Medical Record Reviewed: Yes Mental Status Examination - Cognitive Function Orientation: Person, Place, Situation, Time Memory: Intact Attention: WNL Concentration: Poor Association: WNL Fund of Knowledge: Poor - Mood Mood: Depressed, Anxious - Affect Affect: Constricted, Depressed - Speech Speech: Appropriate - Formal Thought Process Formal Thought Process: No Impairment - Suicidal Ideation Suicidal Ideation: No - Homicidal Ideation Homicidal Ideation: No Goal/Treatment Plan - Goal/Treatment Plan Need for Continued Stay: Remain at risks for inpatient hospitalization, Discharge may exacerbated symptoms Progress Toward Problem(s) and Goals/Treatment Plan: Bipolar disorder depressed severe with psychotic features Alcohol use disorder severe Alcohol withdrawal Cannabis use disorder moderate BPH HTN CBT Stabilization Supportive therapy and group therapy Librium as needed Seroquel for insomnia Abilify for mood Trazodone for insomnia Hydroxyzine for anxiety Lexapro for depression Continue meds for HTN and BPH - Smoking Cessation Smoking Cessation Initiated: No
[2018-08-13] MEDS: Pantoprazole 40 mg EC Tab PO SCH (09:21)
--- NOTE | 2018-08-13 10:12 | PCM.PYCHPN ---
Psychiatric Progress Note - Psychiatric Progress Note Patient seen today, length of contact: 15 Mins Patient Chief Complaint: I was feeling depressed and suicidal. Problems Identified/Issues Discussed: Patient was seen and evaluated, chart reviewed and discussed with staff. Patient reports depressed mood and feelings of hopelessness and helplessness. He reports irritability and agitation. He still reports withdrawal medications. He still reports of auditory becker llucinations and paranoia. He is taking medication but denies any side effects. Supportive therapy was given Medication Change: Yes (Decrease Seroquel to 100mg at HS and start Trazodone 100mg at HS) Medical Record Reviewed: Yes Mental Status Examination - Cognitive Function Orientation: Person, Place, Situation, Time Memory: Intact Attention: WNL Concentration: Poor Association: WNL Fund of Knowledge: Poor - Mood Mood: Depressed, Anxious - Affect Affect: Constricted, Depressed - Speech Speech: Appropriate - Formal Thought Process Formal Thought Process: No Impairment - Suicidal Ideation Suicidal Ideation: No - Homicidal Ideation Homicidal Ideation: No Goal/Treatment Plan - Goal/Treatment Plan Need for Continued Stay: Remain at risks for inpatient hospitalization, Discharge may exacerbated symptoms Progress Toward Problem(s) and Goals/Treatment Plan: Bipolar disorder depressed severe with psychotic features Alcohol use disorder severe Alcohol withdrawal Cannabis use disorder moderate BPH HTN CBT Stabilization Supportive therapy and group therapy Librium as needed Seroquel for insomnia Abilify for mood Trazodone for insomnia Hydroxyzine for anxiety Lexapro for depression Continue meds for HTN and BPH
[2018-08-14] MEDS: Pantoprazole 40 mg EC Tab PO SCH (09:26)
[2018-08-15 06:40] VITALS: BP 117/72; PULSE 80; RESP 18; TEMP 98.1
[2018-08-15] MEDS: Pantoprazole 40 mg EC Tab PO SCH (09:23)
--- NOTE | 2018-08-15 13:05 | PCM.PYCHDC ---
Mental Status Examination - Mental Status Examination Orientation: Person, Place, Situation, Time Memory: Intact Mood: Neutral Affect: Constricted Speech: Soft Attention: WNL Concentration: WNL Association: WNL Fund of Knowledge: WNL Formal Thought Process: No Impairment Description of patient's judgement and insight: good, fair Psychotic Thoughts and Behaviors: denies nay AVH Suicidal Ideation: No Current Homicidal Ideation?: No Discharge Summary - Discharge Note Reason for Hospitalization: Patient is a 53 year old male who was self-referred to [facility] due to suicidal ideation and command hallucinations. [employer] is familiar with this patient. Patient has history of multiple inpatient psychiatric hospitalizations. He was last discharged from [facility] last month. He reports history of follow-up with a psychiatrist. Patient reports that he has been experiencing auditory hallucinations command type telling him 'to kill myself". Patient reports that his psychiatrist took him off of certain psychiatric medications 3 weeks ago, as medications were making him sleepy. Yesterday he started hearing voices telling him to kill himself, he developed suicidal ideation, became concerned and came to the hospital to get help. He appears somewhat paranoid and delusional. Reports auditory hallucinations or visual hallucinations and some paranoia. He reports anxiety, irritability and agitation. He reports depressed mood and feelings of hopelessness and helplessness. He reports poor sleep and poor appetite. Patient reports that used to drink quite a bit and has started to drink again due to the voices. Patient reports that his last drink was yesterday and he usually drinks about a pint of vodka and "a couple of beers". He reports anxiety and headaches but denies any other withdrawal symptoms. He also reports of smoking marijuana. Consultations:: List each consultation separately and include: 1. Reason for request. 2. Findings. 3. Follow-up Summary of Hospital Course include:: 1. Description of specific treatment plan utilized for patients during their course of treatmen. 2. Summarize the time- course for resolution of acute symptoms and/or regressed behaviors. 3. Describe issues identified and worked on during hospitalization. 4. Describe medication utilized. 5. Describe medical problems identified and treated. 6. Reassessment of suicide risk Summary of Hospital Course: Patient is a 53 year old male who was self-referred to [facility] due to suicidal ideation and command hallucinations. [employer] is familiar with this patient. Patient has history of multiple inpatient psychiatric hospitalizations. He was last discharged from [facility] last month. He reports history of follow-up with a psychiatrist. Patient reports that he has been experiencing auditory hallucinations command type telling him 'to kill myself". Patient reports that his psychiatrist took him off of certain psychiatric medications 3 weeks ago, as medications were making him sleepy. Yesterday he started hearing voices telling him to kill himself, he developed suicidal ideation, became concerned and came to the hospital to get help. He appears somewhat paranoid and delusional. Reports auditory hallucinations or visual hallucinations and some paranoia. He reports anxiety, irritability and agitation. He reports depressed mood and feelings of hopelessness and helplessness. He reports poor sleep and poor appetite. Patient reports that used to drink quite a bit and has started to drink again due to the voices. Patient reports that his last drink was yesterday and he usually drinks about a pint of vodka and "a couple of beers". He reports anxiety and headaches but denies any other withdrawal symptoms. He also reports of smoking marijuana. Past medical history HTN, high cholesterol, and osteoarthritis, BPH - Diagnosis (1) Bipolar disorder, curr episode mixed, severe, with psychotic features Current Visit: Yes Status: Acute - Final Diagnosis (DSM 5) Condition upon Discharge: STABLE DSM 5: Bipolar disorder depressed severe with psychotic features Alcohol use disorder severe Alcohol withdrawal Cannabis use disorder moderate Disposition: HOME/ ROUTINE Prescriptions/Medication Reconciliation: amLODIPine [Norvasc] 10 mg PO DAILY #30 tab ARIPiprazole [Abilify] 10 mg PO HS #30 tab Atorvastatin [Lipitor] 20 mg PO DAILY #30 tab Escitalopram [Lexapro] 10 mg PO DAILY #30 tab QUEtiapine [Seroquel] 100 mg PO HS #30 tab Tamsulosin [Flomax] 0.4 mg PO HS 30 Days cap traZODone [Desyrel] 100 mg PO HS PRN #30 tab PRN Reason: Insomnia
== END 2018-08-15 13:49 | disposition home or self-care (01) | DRG 430 ==
LOC: C.ER 14:07 → C.5E 16:26
PROVIDERS: ADMIT Psychiatry & Neurology Psychiatry; ATTEND Psychiatry & Neurology Psychiatry
PROC: GZHZZZZ Group Psychotherapy (ICD-10-PCS; principal; 2018-08-05)
PROC: GZ56ZZZ Individual Psychotherapy, Supportive (ICD-10-PCS; 2018-08-05)
DX: F31.5 Bipolar disorder, current episode depressed, severe, with psychotic features (principal); F10.230 Alcohol dependence with withdrawal, uncomplicated; F43.10 Post-traumatic stress disorder, unspecified; G47.00 Insomnia, unspecified; G47.30 Sleep apnea, unspecified; I10 Essential (primary) hypertension; N40.0 Benign prostatic hyperplasia without lower urinary tract symptoms; R45.851 Suicidal ideations; Z87.891 Personal history of nicotine dependence; F12.10 Cannabis abuse, uncomplicated; Y90.0 Blood alcohol level of less than 20 mg/100 ml